=== PATIENT | female | born 1995 | race Two or more races ===

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

== ENCOUNTER → 2017-05-04 | Outpatient (CLI) | payer OTHER | END | disposition home or self-care (01) | LOC: LAB 11:02 | PROVIDERS: ATTEND Nurse Practitioner | DX: Z02.1 Encounter for pre-employment examination (principal) | CPT/HCPCS: 36415; 86706 ==

== ENCOUNTER → 2018-03-14 | Outpatient (CLI) | payer BC | END | disposition home or self-care (01) | LOC: LAB 14:02 | PROVIDERS: ATTEND Internal Medicine | DX: J02.9 Acute pharyngitis, unspecified (principal) | CPT/HCPCS: 87070 ==

== ENCOUNTER → 2018-03-15 | Outpatient (CLI) | payer BC ==
[2018-03-15 09:01] LABS: Eosinophils # (auto) 0.2 uL; Hemoglobin 13.4 g/dL (12.2-16.2); Monocytes # (auto) 0.5 uL; Monocytes % (auto) 8.2 % (0.0-12.0); Neutrophils # (auto) 3.5 uL
[2018-03-15 09:02] LABS: Basophils # (auto) 0 uL; Basophils % (auto) 0.7 % (0.0-2.0); Eosinophils % (auto) 3.2 % (0.0-7.0); Hematocrit 41.9 % (36.0-46.0); Lymphocytes # (auto) 2.1 uL; Lymphocytes % (auto) 33.4 % (10.0-50.0); Mean Corpuscular Hemoglobin 24.5 pg (28.0-32.0); Mean Corpuscular Hgb Conc. 31.9 g/dL (32.0-36.0); Mean Corpuscular Volume 76.8 fL (80.0-100.0); Neutrophils % (auto) 54.5 % (37.0-80.0); Nucleated Red Blood Cells % 0.1 %; Platelet Count (auto) 368 10^3/uL (140-450); Red Blood Cells 5.46 10^6/uL (4.0-5.20); Red Cell Distribution Width 15.8 % (11.8-14.3); White Blood Cell 6.4 10^3/uL (4.4-10.8)
[2018-03-15 09:05] LABS: Urine Bacteria NONE SEEN /hpf (None Seen); Urine Blood Negative /uL (Negative); Urine Mucus FEW (None Seen); Urine Specific Gravity 1.022 (1.001-1.035); Urine WBC 1 /hpf (0 - 5)
[2018-03-15 09:35] LABS: Albumin 4.5 g/dL (3.4-5.0); BUN/Creatinine Ratio 14.6; Bilirubin, Total 0.4 mg/dL (0.2-1.0); Magnesium 2.4 mg/dL (1.6-2.6); Total Protein 9.2 g/dL (6.4-8.2)
[2018-03-15 09:39] LABS: Beta HCG, Quantitative < 1 mlU/mL (1-3); Thyroid Stimulating Hormone 1.81 uIU/mL (0.358-3.74)
== END | disposition home or self-care (01) ==
LOC: LAB 08:23
PROVIDERS: ATTEND Internal Medicine
DX: E55.9 Vitamin D deficiency, unspecified (principal); J02.9 Acute pharyngitis, unspecified
CPT/HCPCS: 36415; 80053; 80061; 81001; 83036; 83735; 84439; 84443; 84702; 85025; 85379; 85652; 86308; 86703

== ENCOUNTER → 2018-04-26 | Outpatient (CLI) | payer BC | END | disposition home or self-care (01) | LOC: XYW 08:18 | PROVIDERS: ATTEND Internal Medicine | DX: I47.1 Supraventricular tachycardia (principal); R55 Syncope and collapse | CPT/HCPCS: 93306 ==

== ENCOUNTER → 2019-11-05 | Outpatient (CLI) | payer OTHER | END | disposition home or self-care (01) | LOC: LAB 07:26 | PROVIDERS: ATTEND Nurse Practitioner Family | DX: Z03.818 Encounter for observation for suspected exposure to other biological agents ruled out (principal) | CPT/HCPCS: C9803; U0003 ==

== ENCOUNTER 2020-12-19 17:40 | Emergency (ER) | payer BC, OTHER ==
[~2020-12-19] VITALS: Ht 160 cm; Wt 77.1 kg
[2020-12-19] MEDS ORDERED: SODIUM CHLORIDE 0.9% 1,000 ML IV ONE (18:30)
[2020-12-19 18:44] LABS: Basophils # (auto) 0 10 ^3/uL (0-0.2); Eosinophils # (auto) 0.2 10 ^3/uL (0-0.8); Monocytes # (auto) 0.8 10 ^3/uL (0-1.3); Red Blood Cells 5.09 10^6/uL (4.0-5.20)
[2020-12-19 18:46] LABS: Basophils % (auto) 0.4 % (0.0-2.0); Eosinophils % (auto) 2.4 % (0.0-7.0); Hematocrit 35.1 % (36.0-46.0); Hemoglobin 11.1 g/dL (12.2-16.2); Mean Corpuscular Hemoglobin 21.7 pg (28.0-32.0); Mean Corpuscular Hgb Conc. 31.5 g/dL (32.0-36.0); Mean Corpuscular Volume 68.9 fL (80.0-100.0); Neutrophils # (auto) 4.2 10 ^3/uL (1.6-8.6); Neutrophils % (auto) 45.2 % (37.0-80.0); Red Cell Distribution Width 17.3 % (11.8-14.3); White Blood Cell 9.3 10^3/uL (4.4-10.8)
[2020-12-19 18:54] LABS: Albumin 3.9 g/dL (3.4-5.0); Anion Gap 6 (5-15); Blood Urea Nitrogen 20 mg/dL (7-18); Calcium 8.6 mg/dL (8.5-10.1); Carbon Dioxide 21 mmol/L (21-32); Chloride 114 mmol/L (98-107); Glucose 85 mg/dL (74-106); Sodium 141 mmol/L (136-145)
[2020-12-19 18:58] LABS: Alanine Aminotransferase 37 U/L (13-56); Alkaline Phosphatase 80 U/L (45-117); Aspartate Aminotransferase 25 U/L (15-37); BUN/Creatinine Ratio 29.9; Bilirubin, Total < 0.1 mg/dL (0.2-1.0); GFR African American 140 mL/min; GFR Non-African American 116 mL/min
[2020-12-19 19:45] VITALS: BP 114/61
[2020-12-19 20:09] LABS: Urine Bacteria NONE SEEN /hpf (None Seen); Urine Blood 1+ /uL (Negative); Urine Hyaline Cast FEW /lpf (0 - 2); Urine Mucus FEW (None Seen); Urine Specific Gravity 1.022 (1.001-1.035); Urine WBC 9 /hpf (0 - 5)
== END 2020-12-19 21:07 | disposition home or self-care (01) ==
LOC: ER 17:40
DX: N39.0 Urinary tract infection, site not specified (principal); R55 Syncope and collapse; D64.9 Anemia, unspecified; R42 Dizziness and giddiness
CPT/HCPCS: 36415; 70450; 80053; 81001; 81025; 82962; 84702; 85025; 93005; 96360; 99285; J7030

== ENCOUNTER → 2021-03-13 | Outpatient (CLI) | payer BC | END | disposition home or self-care (01) | LOC: XYW 08:47 | PROVIDERS: ATTEND Internal Medicine | DX: R00.2 Palpitations (principal) | CPT/HCPCS: 93306 ==

== ENCOUNTER → 2021-04-02 | Outpatient (CLI) | payer BC ==
[2021-04-02 13:00] LABS: Basophils # (auto) 0.1 10 ^3/uL (0-0.2); Hemoglobin 11.5 g/dL (12.2-16.2); Monocytes # (auto) 0.6 10 ^3/uL (0-1.3)
[2021-04-02 13:02] LABS: Basophils % (auto) 0.6 % (0.0-2.0); Eosinophils # (auto) 0.2 10 ^3/uL (0-0.8); Eosinophils % (auto) 2.7 % (0.0-7.0); Hematocrit 34.6 % (36.0-46.0); Mean Corpuscular Hemoglobin 23.2 pg (28.0-32.0); Mean Corpuscular Hgb Conc. 33.2 g/dL (32.0-36.0); Monocytes % (auto) 7.1 % (0.0-12.0); Neutrophils # (auto) 5.1 10 ^3/uL (1.6-8.6); Neutrophils % (auto) 56.6 % (37.0-80.0); Red Blood Cells 4.94 10^6/uL (4.0-5.20); Red Cell Distribution Width 17.7 % (11.8-14.3); White Blood Cell 8.9 10^3/uL (4.4-10.8)
[2021-04-02 13:31] LABS: Albumin 3.8 g/dL (3.4-5.0); Potassium 3.7 mmol/L (3.5-5.1)
[2021-04-02 13:35] LABS: BUN/Creatinine Ratio 16.1; Bilirubin, Total 0.2 mg/dL (0.2-1.0); Calcium 8.9 mg/dL (8.5-10.1); Total Protein 7.9 g/dL (6.4-8.2)
[2021-04-02 13:52] LABS: % Iron Saturation 5.8 % (15-50)
== END | disposition home or self-care (01) ==
LOC: LAB 12:41
PROVIDERS: ATTEND Student in an Organized Health Care Education/Training Program
DX: D50.8 Other iron deficiency anemias (principal); R73.9 Hyperglycemia, unspecified; I47.1 Supraventricular tachycardia
CPT/HCPCS: 36415; 80053; 80061; 82728; 83036; 83540; 83550; 84443; 85025; 87086

== ENCOUNTER → 2021-07-08 | Outpatient (CLI) | payer BC | END | disposition home or self-care (01) | LOC: LAB 14:07 | PROVIDERS: ATTEND Obstetrics & Gynecology | DX: R87.612 Low grade squamous intraepithelial lesion on cytologic smear of cervix (LGSIL) (principal) ==

== ENCOUNTER → 2022-08-18 | Outpatient (CLI) | payer BC ==
[2022-08-18 13:56] LABS: Basophils # (auto) 0 10 ^3/uL (0-0.2); Mean Corpuscular Volume 71.3 fL (80.0-100.0); Monocytes # (auto) 0.6 10 ^3/uL (0-1.3); Nucleated Red Blood Cells % 0.1 %
[2022-08-18 13:58] LABS: Basophils % (auto) 0.5 % (0.0-2.0); Eosinophils # (auto) 0.2 10 ^3/uL (0-0.8); Eosinophils % (auto) 1.9 % (0.0-7.0); Hematocrit 35.1 % (36.0-46.0); Hemoglobin 11.2 g/dL (12.2-16.2); Lymphocytes # (auto) 2.6 10 ^3/uL (0.4-5.4); Lymphocytes % (auto) 31.2 % (10.0-50.0); Mean Corpuscular Hemoglobin 22.7 pg (28.0-32.0); Mean Corpuscular Hgb Conc. 31.9 g/dL (32.0-36.0); Monocytes % (auto) 7.2 % (0.0-12.0); Neutrophils # (auto) 4.9 10 ^3/uL (1.6-8.6); Neutrophils % (auto) 59.2 % (37.0-80.0); Red Blood Cells 4.92 10^6/uL (4.0-5.20); White Blood Cell 8.2 10^3/uL (4.4-10.8)
[2022-08-18 14:05] LABS: Urine Bacteria NONE SEEN /hpf (None Seen); Urine Blood Negative /uL (Negative); Urine Mucus FEW (None Seen); Urine WBC 1 /hpf (0 - 5)
[2022-08-18 14:23] LABS: Albumin 4.3 g/dL (3.4-5.0); Potassium 3.7 mmol/L (3.5-5.1)
[2022-08-18 14:28] LABS: BUN/Creatinine Ratio 17.9; Bilirubin, Total 0.3 mg/dL (0.2-1.0); Total Protein 7.8 g/dL (6.4-8.2)
== END | disposition home or self-care (01) ==
LOC: LAB 13:33
PROVIDERS: ATTEND Student in an Organized Health Care Education/Training Program
DX: R00.2 Palpitations (principal); R03.0 Elevated blood-pressure reading, without diagnosis of hypertension; R73.9 Hyperglycemia, unspecified; E55.9 Vitamin D deficiency, unspecified
CPT/HCPCS: 36415; 80053; 80061; 81001; 83036; 84439; 84443; 85025

== ENCOUNTER → 2022-10-06 | Outpatient (CLI) | payer BC | END | disposition home or self-care (01) | LOC: LAB 14:00 | PROVIDERS: ATTEND Radiology Diagnostic Radiology | DX: D24.1 Benign neoplasm of right breast (principal); N63.12 Unspecified lump in the right breast, upper inner quadrant ==

== ENCOUNTER 2022-11-29 13:02 | Emergency (ER) | payer BC ==
[~2022-11-29] VITALS: Ht 160 cm; Wt 68.0 kg
[2022-11-29 16:02] LABS: Basophils # (auto) 0 10 ^3/uL (0-0.2); Lymphocytes # (auto) 2.4 10 ^3/uL (0.4-5.4); Monocytes # (auto) 0.7 10 ^3/uL (0-1.3); Monocytes % (auto) 7.9 % (0.0-12.0); Neutrophils # (auto) 5.3 10 ^3/uL (1.6-8.6); Nucleated Red Blood Cells % 0.1 %
[2022-11-29 16:05] LABS: Basophils % (auto) 0.4 % (0.0-2.0); Eosinophils # (auto) 0.2 10 ^3/uL (0-0.8); Eosinophils % (auto) 1.8 % (0.0-7.0); Hematocrit 36.1 % (36.0-46.0); Hemoglobin 11.1 g/dL (12.2-16.2); Lymphocytes % (auto) 27.8 % (10.0-50.0); Mean Corpuscular Hemoglobin 22.3 pg (28.0-32.0); Mean Corpuscular Hgb Conc. 30.7 g/dL (32.0-36.0); Mean Corpuscular Volume 72.7 fL (80.0-100.0); Neutrophils % (auto) 62.1 % (37.0-80.0); Red Blood Cells 4.96 10^6/uL (4.0-5.20); Red Cell Distribution Width 17.2 % (11.8-14.3); White Blood Cell 8.5 10^3/uL (4.4-10.8)
[2022-11-29 16:22] LABS: Albumin 3.6 g/dL (3.4-5.0); BUN/Creatinine Ratio 18.8 (10.0-20.0); Calcium 8.7 mg/dL (8.5-10.1); Potassium 3.3 mmol/L (3.5-5.1)
[2022-11-29 16:25] LABS: Bilirubin, Total 0.2 mg/dL (0.2-1.0); Total Protein 7.5 g/dL (6.4-8.2)
[2022-11-29 16:34] LABS: INR 0.99 (0.9-1.15)
[2022-11-29] MEDS ORDERED: POTASSIUM CHL 20 Meq TABLET PO STA (16:53)
[2022-11-29 18:05] VITALS: BP 124/68
== END 2022-11-29 18:06 | disposition home or self-care (01) ==
LOC: ER 13:02
DX: R04.0 Epistaxis (principal)
CPT/HCPCS: 36415; 80053; 85025; 85610

== ENCOUNTER 2022-12-26 14:35 | Emergency (ER) | payer BC ==
[~2022-12-26] VITALS: Ht 160 cm; Wt 80.5 kg
[2022-12-26 15:26] VITALS: BP 143/58
[2022-12-26 16:30] LABS: Eosinophils # (auto) 0.2 10 ^3/uL (0-0.8); Hemoglobin 10.4 g/dL (12.2-16.2); Lymphocytes # (auto) 2.7 10 ^3/uL (0.4-5.4); Monocytes # (auto) 0.8 10 ^3/uL (0-1.3)
[2022-12-26 16:32] LABS: Basophils # (auto) 0 10 ^3/uL (0-0.2); Basophils % (auto) 0.3 % (0.0-2.0); Eosinophils % (auto) 2.1 % (0.0-7.0); Hematocrit 32.5 % (36.0-46.0); Lymphocytes % (auto) 27.2 % (10.0-50.0); Mean Corpuscular Hemoglobin 22.9 pg (28.0-32.0); Mean Corpuscular Hgb Conc. 32.1 g/dL (32.0-36.0); Mean Corpuscular Volume 71.3 fL (80.0-100.0); Neutrophils # (auto) 6.1 10 ^3/uL (1.6-8.6); Neutrophils % (auto) 62.4 % (37.0-80.0); Nucleated Red Blood Cells % 0.1 %; Red Blood Cells 4.56 10^6/uL (4.0-5.20); Red Cell Distribution Width 17.6 % (11.8-14.3); White Blood Cell 9.9 10^3/uL (4.4-10.8)
[2022-12-26 16:40] LABS: INR 1.03 (0.9-1.15)
[2022-12-26] MEDS ORDERED: SODIUM CHLORIDE 0.9% 1,000 ML IV ONE (17:30)
[2022-12-26 17:45] LABS: Potassium 4.3 mmol/L (3.5-5.1)
[2022-12-26 17:53] LABS: Albumin 4.3 g/dL (3.4-5.0); BUN/Creatinine Ratio 22.5 (10.0-20.0); Bilirubin, Total 0.2 mg/dL (0.2-1.0); Calcium 8.7 mg/dL (8.5-10.1); Total Protein 7.2 g/dL (6.4-8.2)
== END 2022-12-26 23:30 | disposition home or self-care (01) ==
LOC: ER 14:35
DX: R04.0 Epistaxis (principal); R42 Dizziness and giddiness
CPT/HCPCS: 36415; 80053; 85025; 85610; 96360; 99283; J7030

== ENCOUNTER → 2023-02-11 | Outpatient (CLI) | payer BC ==
[2023-02-11 08:20] LABS: Basophils # (auto) 0.1 10 ^3/uL (0-0.2); Eosinophils # (auto) 0.3 10 ^3/uL (0-0.8); Eosinophils % (auto) 3.3 % (0.0-7.0); Lymphocytes # (auto) 3.8 10 ^3/uL (0.4-5.4); Monocytes # (auto) 0.9 10 ^3/uL (0-1.3); Monocytes % (auto) 8.3 % (0.0-12.0); Nucleated Red Blood Cells % 0.1 %
[2023-02-11 08:21] LABS: Basophils % (auto) 0.5 % (0.0-2.0); Hematocrit 35.1 % (36.0-46.0); Hemoglobin 11.1 g/dL (12.2-16.2); Lymphocytes % (auto) 36.4 % (10.0-50.0); Mean Corpuscular Hemoglobin 22.2 pg (28.0-32.0); Mean Corpuscular Hgb Conc. 31.5 g/dL (32.0-36.0); Mean Corpuscular Volume 70.5 fL (80.0-100.0); Neutrophils # (auto) 5.3 10 ^3/uL (1.6-8.6); Neutrophils % (auto) 51.5 % (37.0-80.0); Red Blood Cells 4.98 10^6/uL (4.0-5.20); Red Cell Distribution Width 16.3 % (11.8-14.3); White Blood Cell 10.3 10^3/uL (4.4-10.8)
[2023-02-11 09:11] LABS: Potassium 3.7 mmol/L (3.5-5.1)
[2023-02-11 09:15] LABS: BUN/Creatinine Ratio 18.3 (10.0-20.0); Calcium 8.5 mg/dL (8.5-10.1)
== END | disposition home or self-care (01) ==
LOC: LAB 08:10
PROVIDERS: ATTEND Student in an Organized Health Care Education/Training Program
DX: R73.9 Hyperglycemia, unspecified (principal)
CPT/HCPCS: 36415; 80048; 83036; 85025

== ENCOUNTER 2023-05-01 21:23 | Emergency (ER) | payer BC ==
[~2023-05-01] VITALS: Ht 160 cm; Wt 79.5 kg
[2023-05-01] MEDS ORDERED: ACCU-CHEK COMFORT CURVE STRIP VI ONE (21:30)
[2023-05-01 22:01] LABS: Basophils # (auto) 0.1 10 ^3/uL (0-0.2); Eosinophils # (auto) 0.2 10 ^3/uL (0-0.8)
[2023-05-01 22:03] LABS: Basophils % (auto) 1.1 % (0.0-2.0); Eosinophils % (auto) 2.1 % (0.0-7.0); Hematocrit 34.3 % (36.0-46.0); Lymphocytes # (auto) 4.5 10 ^3/uL (0.4-5.4); Lymphocytes % (auto) 45.6 % (10.0-50.0); Mean Corpuscular Hemoglobin 22.1 pg (28.0-32.0); Mean Corpuscular Hgb Conc. 32.1 g/dL (32.0-36.0); Monocytes # (auto) 0.7 10 ^3/uL (0-1.3); Monocytes % (auto) 6.8 % (0.0-12.0); Neutrophils # (auto) 4.4 10 ^3/uL (1.6-8.6); Neutrophils % (auto) 44.4 % (37.0-80.0); Red Blood Cells 4.97 10^6/uL (4.0-5.20); Red Cell Distribution Width 19.4 % (11.8-14.3); White Blood Cell 9.9 10^3/uL (4.4-10.8)
[2023-05-01 22:17] LABS: Alanine Aminotransferase 22 U/L (7-40); Albumin 4.9 g/dL (3.2-4.8); Alkaline Phosphatase 78 U/L (46-116); Anion Gap 10 (5-15); Aspartate Aminotransferase 12 U/L (13-40); BUN/Creatinine Ratio 12.7 (10.0-20.0); Bilirubin, Total 0.2 mg/dL (0.2-1.0); Blood Urea Nitrogen 10 mg/dL (9-23); Calcium 9.7 mg/dL (8.7-10.4); Carbon Dioxide 21 mmol/L (20-30); Chloride 105 mmol/L (98-107); Glucose 93 mg/dL (74-106); Potassium 3.1 mmol/L (3.5-5.1); Sodium 136 mmol/L (136-145); Total Protein 8.1 g/dL (5.7-8.2)
[2023-05-01 22:49] LABS: Rapid Influenza A Negative (Negative); Rapid Influenza B Negative (Negative)
[2023-05-01 22:50] LABS: COVID19 ANTIGEN SOFIA FIA NEGATIVE (NEGATIVE)
[2023-05-02 00:16] LABS: Urine Bacteria FEW /hpf (None Seen); Urine Blood Negative /uL (Negative); Urine Clarity Clear (Clear); Urine Mucus FEW (None Seen); Urine Protein, UAD Negative (Negative); Urine Specific Gravity 1.007 (1.001-1.035); Urine Urobilinogen Normal (Negative); Urine WBC 5 /hpf (0 - 5)
[2023-05-02 00:17] LABS: Urine Color Straw (Yellow)
[2023-05-02] MEDS ORDERED: MECL1TAB42 PO (00:56)
[2023-05-02] MEDS ORDERED: ZOFR4T PO (00:56)
[2023-05-02] MEDS ORDERED: MECLIZINE HCL 25 MG TAB PO ONE (01:00)
[2023-05-02 01:14] VITALS: BP 120/81; PULSE 86; RESP 17; TEMP 97.9; O2SAT 96
== END 2023-05-02 01:47 | disposition home or self-care (01) ==
LOC: ER 21:23 → EEVIPCON 21:23 → ER 05-02 01:47
DX: B34.9 Viral infection, unspecified (principal); Z20.822 Contact with and (suspected) exposure to COVID-19
CPT/HCPCS: 36415; 70450; 71045; 80053; 81001; 83880; 84484; 85025; 87426; 87804; 93005; 99285; J8597

== ENCOUNTER → 2023-12-09 | Outpatient (CLI) | payer BC ==
[~2023-12-09] MED LIST: MECL1TAB42 PO; ZOFR4T PO
[2023-12-09 10:24] LABS: Follicle Stimulating Hormone 6.97 IU/L (SEE BELOW); Leuteinizing Hormone 6.7 IU/L
== END | disposition home or self-care (01) ==
LOC: LAB 08:41
PROVIDERS: ATTEND Obstetrics & Gynecology
DX: N92.6 Irregular menstruation, unspecified (principal)
CPT/HCPCS: 36415; 82670; 83001; 83002; 84403; 84443

== ENCOUNTER 2024-01-05 15:28 | Emergency (ER) | payer BC ==
[~2024-01-05] VITALS: Ht 160 cm; Wt 82.7 kg
[2024-01-05 16:27] LABS: Basophils # (auto) 0.1 10 ^3/uL (0-0.2); Basophils % (auto) 0.5 % (0.0-2.0); Eosinophils # (auto) 0.3 10 ^3/uL (0-0.8); Eosinophils % (auto) 2.7 % (0.0-7.0); Hematocrit 34.2 % (36.0-46.0); Hemoglobin 10.8 g/dL (12.2-16.2); Lymphocytes # (auto) 3.9 10 ^3/uL (0.4-5.4); Lymphocytes % (auto) 34.9 % (10.0-50.0); Mean Corpuscular Hemoglobin 23.2 pg (28.0-32.0); Mean Corpuscular Hgb Conc. 31.7 g/dL (32.0-36.0); Mean Corpuscular Volume 73.3 fL (80.0-100.0); Monocytes # (auto) 0.8 10 ^3/uL (0-1.3); Monocytes % (auto) 7.4 % (0.0-12.0); Neutrophils % (auto) 54.5 % (37.0-80.0); Nucleated Red Blood Cells % 0.1 %; Red Blood Cells 4.66 10^6/uL (4.0-5.20); Red Cell Distribution Width 15.6 % (11.8-14.3); White Blood Cell 11.1 10^3/uL (4.4-10.8)
[2024-01-05 16:39] LABS: Chloride 108 mmol/L (98-107); Potassium 3.4 mmol/L (3.5-5.1); Sodium 138 mmol/L (136-145)
[2024-01-05 16:40] LABS: Anion Gap 8 (5-15); Calcium 9.9 mg/dL (8.5-10.1); Carbon Dioxide 22 mmol/L (20-30)
[2024-01-05 16:45] LABS: BUN/Creatinine Ratio 14.6 (10.0-20.0); Blood Urea Nitrogen 13 mg/dL (9-23); Glucose 89 mg/dL (74-106)
[2024-01-05] MEDS: SODIUM CHLORIDE 0.9% 1,000 ML IV ONE (21:43)
[2024-01-05 21:45] VITALS: BP 129/77; PULSE 73; RESP 14; TEMP 98.3; O2SAT 100
== END 2024-01-05 21:52 | disposition home or self-care (01) ==
LOC: ER 15:28
DX: R55 Syncope and collapse (principal); E11.9 Type 2 diabetes mellitus without complications; Z79.899 Other long term (current) drug therapy
CPT/HCPCS: 36415; 70450; 80048; 85025; 93005

== ENCOUNTER 2024-04-17 18:43 | Emergency (ER) | payer BC ==
[~2024-04-17] VITALS: Ht 160 cm; Wt 80.1 kg
[2024-04-17] MEDS: ONDANSETRON ODT 4 MG TAB PO ONE (19:02)
[2024-04-17 20:02] LABS: Urine Bacteria None Seen /hpf (None Seen)
[2024-04-17] MEDS: SODIUM CHLORIDE 0.9% 1,000 ML IV ONE (20:15)
[2024-04-17 20:20] LABS: Urine Blood Negative /uL (Negative); Urine Clarity Clear (Clear); Urine Color Yellow (Yellow); Urine Mucus FEW (None Seen); Urine Protein, UAD Negative (Negative); Urine Specific Gravity 1.029 (1.001-1.035); Urine Urobilinogen Normal (Negative); Urine WBC 1 /hpf (0 - 5); Urine pH 5.5 (5.0-9.0)
[2024-04-17 20:21] LABS: Basophils # (auto) 0 10 ^3/uL (0-0.2); Basophils % (auto) 0.3 % (0.0-2.0); Eosinophils # (auto) 0.1 10 ^3/uL (0-0.8); Hematocrit 34.1 % (36.0-46.0); Monocytes # (auto) 0.6 10 ^3/uL (0-1.3); Neutrophils # (auto) 7.7 10 ^3/uL (1.6-8.6)
[2024-04-17 20:23] LABS: Hemoglobin 10.8 g/dL (12.2-16.2); Lymphocytes # (auto) 2.8 10 ^3/uL (0.4-5.4); Lymphocytes % (auto) 25.2 % (10.0-50.0); Mean Corpuscular Hemoglobin 21.9 pg (28.0-32.0); Mean Corpuscular Hgb Conc. 31.7 g/dL (32.0-36.0); Monocytes % (auto) 5.1 % (0.0-12.0); Neutrophils % (auto) 68.4 % (37.0-80.0); Platelet Count (auto) 402 10^3/uL (140-450); Red Blood Cells 4.94 10^6/uL (4.0-5.20); Red Cell Distribution Width 16.5 % (11.8-14.3); White Blood Cell 11.3 10^3/uL (4.4-10.8)
[2024-04-17 20:32] LABS: Alanine Aminotransferase 29 U/L (7-40); Albumin 4.9 g/dL (3.2-4.8); Alkaline Phosphatase 75 U/L (46-116); Anion Gap 10 (5-15); Aspartate Aminotransferase 18 U/L (13-40); BUN/Creatinine Ratio 11.4 (10.0-20.0); Bilirubin, Total 0.4 mg/dL (0.2-1.0); Blood Urea Nitrogen 8 mg/dL (9-23); Calcium 9.7 mg/dL (8.7-10.4); Carbon Dioxide 19 mmol/L (20-30); Chloride 109 mmol/L (98-107); Glucose 71 mg/dL (74-106); Potassium 3.3 mmol/L (3.5-5.1); Sodium 138 mmol/L (136-145)
[2024-04-17] MEDS: POTASSIUM CHL 20 Meq TABLET PO ONE (21:23)
[2024-04-17] MEDS ORDERED: ONDA-155 PO (21:54)
[2024-04-17 22:05] VITALS: BP 119/73; PULSE 72; RESP 16; TEMP 98.8; O2SAT 98
== END 2024-04-17 22:17 | disposition home or self-care (01) ==
LOC: EEVIPCON 18:43 → ER 18:43
DX: N83.202 Unspecified ovarian cyst, left side (principal); E87.6 Hypokalemia; Z79.899 Other long term (current) drug therapy
CPT/HCPCS: 36415; 76856; 80053; 81001; 81025; 85025; 96360; 99284; J7030; Q0162

== ENCOUNTER → 2024-05-09 | Outpatient (CLI) | payer BC ==
[~2024-05-09] MED LIST changes: +ONDA-155 PO
[2024-05-09 16:04] LABS: Basophils # (auto) 0.1 10 ^3/uL (0-0.2); Basophils % (auto) 1.3 % (0.0-2.0); Eosinophils # (auto) 0.3 10 ^3/uL (0-0.8); Eosinophils % (auto) 4.2 % (0.0-7.0); Hematocrit 33.4 % (36.0-46.0); Hemoglobin 10.5 g/dL (12.2-16.2); Lymphocytes # (auto) 2.4 10 ^3/uL (0.4-5.4); Lymphocytes % (auto) 29.2 % (10.0-50.0); Mean Corpuscular Hemoglobin 21.7 pg (28.0-32.0); Mean Corpuscular Hgb Conc. 31.5 g/dL (32.0-36.0); Mean Corpuscular Volume 68.9 fL (80.0-100.0); Monocytes # (auto) 0.6 10 ^3/uL (0-1.3); Monocytes % (auto) 7.5 % (0.0-12.0); Neutrophils # (auto) 4.7 10 ^3/uL (1.6-8.6); Neutrophils % (auto) 57.8 % (37.0-80.0); Nucleated Red Blood Cells % 0.1 %; Platelet Count (auto) 460 10^3/uL (140-450); Red Blood Cells 4.85 10^6/uL (4.0-5.20); Red Cell Distribution Width 17.1 % (11.8-14.3); White Blood Cell 8.2 10^3/uL (4.4-10.8)
[2024-05-09 16:11] LABS: Alanine Aminotransferase 17 U/L (7-40); Albumin 4.6 g/dL (3.2-4.8); Alkaline Phosphatase 73 U/L (46-116); Anion Gap 9 (5-15); Aspartate Aminotransferase 14 U/L (13-40); BUN/Creatinine Ratio 22.2 (10.0-20.0); Blood Urea Nitrogen 16 mg/dL (9-23); Calcium 9.5 mg/dL (8.7-10.4); Carbon Dioxide 21 mmol/L (20-31); Chloride 111 mmol/L (98-107); Glucose 78 mg/dL (74-106); Sodium 141 mmol/L (136-145)
[2024-05-09 16:12] LABS: Bilirubin, Total 0.2 mg/dL (0.2-1.0); Total Protein 7.5 g/dL (5.7-8.2)
[2024-05-09 16:15] LABS: Follicle Stimulating Hormone 6.51 IU/L (SEE BELOW); Free T4 (Free Thyroxine) 1.24 ng/dL (0.89-1.76); Leuteinizing Hormone 4.5 IU/L
[2024-05-09 16:19] LABS: Thyroid Stimulating Hormone 1.98 uIU/mL (0.55-4.78)
[2024-05-09 16:20] LABS: Beta HCG, Quantitative < 0.0 mIU/mL (1.5-4.2)
[2024-05-10 09:07] LABS: Estradiol 83.6 pg/mL (.); Insulin 17.6 uIU/mL (2.6-24.9)
[2024-05-14 11:07] LABS: Free Testosterone(Direct) 0.9 pg/mL (0.0-4.2)
== END | disposition home or self-care (01) ==
LOC: LAB 11:28
PROVIDERS: ATTEND Obstetrics & Gynecology
DX: E28.2 Polycystic ovarian syndrome (principal)
CPT/HCPCS: 36415; 80053; 82626; 82670; 83001; 83002; 83036; 83525; 84402; 84403; 84439; 84443; 84702; 85025

== ENCOUNTER → 2024-06-21 | Outpatient (CLI) | payer BC ==
[2024-06-21 11:20] LABS: Basophils # (auto) 0.1 10 ^3/uL (0-0.2); Basophils % (auto) 0.6 % (0.0-2.0); Eosinophils # (auto) 0.2 10 ^3/uL (0-0.8); Hematocrit 32.4 % (36.0-46.0); Hemoglobin 10.2 g/dL (12.2-16.2); Lymphocytes # (auto) 2.5 10 ^3/uL (0.4-5.4); Lymphocytes % (auto) 24.2 % (10.0-50.0); Mean Corpuscular Hemoglobin 21.7 pg (28.0-32.0); Mean Corpuscular Hgb Conc. 31.5 g/dL (32.0-36.0); Monocytes # (auto) 0.8 10 ^3/uL (0-1.3); Neutrophils # (auto) 6.8 10 ^3/uL (1.6-8.6); Neutrophils % (auto) 65.2 % (37.0-80.0); Platelet Count (auto) 398 10^3/uL (140-450); Red Blood Cells 4.69 10^6/uL (4.0-5.20); Red Cell Distribution Width 18.9 % (11.8-14.3); White Blood Cell 10.4 10^3/uL (4.4-10.8)
[2024-06-21 11:36] LABS: Amphetamine Screen, Urine Neg (NEGATIVE); Barbiturate Scree,Urine Neg (NEGATIVE); Benzodiazephine Screen, Urine Neg (NEGATIVE); Cocaine Screen, Urine Neg (NEGATIVE); Opiate Scree,Urine Neg (NEGATIVE)
[2024-06-21 11:37] LABS: Cannabinoid Screen, Urine Neg (NEGATIVE); Phencyclidine Screen, Urine Neg (NEGATIVE)
[2024-06-21 11:43] LABS: Thyroid Stimulating Hormone 1.43 uIU/mL (0.55-4.78)
[2024-06-21 11:51] LABS: Beta HCG, Quantitative 178876.8 mIU/mL (1.5-4.2)
[2024-06-22 07:06] LABS: RPR Non Reactive (Non Reactive)
[2024-06-23 03:06] LABS: Varicella Zoster IgG Antibody Non Reactive (Non Reactive)
[2024-06-23 05:07] LABS: Chlamydia Trachomatis, NAA Negative (Negative); Neisseria gonorrhoeae, NAA Negative (Negative)
== END | disposition home or self-care (01) ==
LOC: LAB 10:05
DX: Z11.3 Encounter for screening for infections with a predominantly sexual mode of transmission (principal); N39.0 Urinary tract infection, site not specified
CPT/HCPCS: 36415; 80307; 83036; 84439; 84443; 84702; 85025; 86592; 86703; 86762; 86787; 86850; 86900; 86901; 87086; 87340; 87902

== ENCOUNTER 2024-08-06 18:26 | Emergency (ER) | payer BC ==
[~2024-08-06] VITALS: Ht 160 cm; Wt 84.6 kg
--- NOTE | 2024-08-06 19:08 | ED.PDOC ---
[employer] HPI Comments 29-year-old female with no PMHx presents with a chief complaint of palpitations, nausea, vomiting, lightheadedness, and current . Patient states that she is currently 14 weeks . Patient mentions that symptoms began x 6 days ago when she began to feel palpitations along with lightheadedness. Patient then mentions that nausea and vomiting began x 3 days ago with the similar symptoms. Patient denies any active chest pain. Patient reports that she does take pre- care. No other symptoms or modifying factors present at this time. Chief Complaint: Palpitations Time Seen by MD: 18:56 Reviewed Notes: Medications, Allergies Allergies: Coded Allergies: No Known Drug Allergy (Verified Allergy, Unknown, 12/19/20) Home Meds Active Scripts Ondansetron HCl (Ondansetron) 4 Mg Tab, 4 MG PO TID for 4 Days, #12 TAB Prov:CHRISTIANO SANCHES RESIDENT 04/17/24 Ondansetron Odt 4MG Tab (ZOFRAN PO) 4 Mg Tb, 4 MG PO Q6HP PRN, #15 TAB ODT TAB-DISSOLVE IN MOUTH, THEN SWALLOW Prov:ARMEN NEVAREZ PAC 05/02/23 Meclizine HCl (Meclizine 25) 25 Mg Tab, 25 MG PO Q8HP PRN, #15 TAB Prov:ARMEN NEVAREZ [facility] 05/02/23 Information Source: Patient Mode of Arrival: Ambulatory Timing: Days Prehospital treatment: None Severity: Moderate Vaginal Discharge: None Vaginal Lesions: None Vaginal Mass: None Sexual Activity: Last Consensual [place]: Unknown Control: None History of: Current Blood Type: Unknown Symptoms of Possible : Nausea, Vomiting Past Medical History PAST MEDICAL HISTORY: Denies Surgical History: Denies all surgeries CUSTOMER CONSULTANT History: No Pertinent CUSTOMER CONSULTANT History Family History Family History: Family hx of DM, Family hx of Cancer, Family hx of heart manuel, Family hx of HTN Social History Smoker: Non-Smoker Alcohol: Rarely Drugs: Denies Drug Use Lives In: Home Constitutional: denies: chills, diaphoresis, fatigue, fever, malaise, sweats, weakness, others EENTM: denies: blurred vision, double vision, ear bleeding, ear discharge, ear drainage, ear pain, ear ringing, eye pain, eye redness, hearing loss, mouth pain, mouth swelling, nasal discharge, nose bleeding, nose congestion, nose pain, photophobia, tearing, throat pain, throat swelling, voice changes, others Respiratory: denies: cough, hemoptysis, orthopnea, SOB at rest, shortness of breath, SOB with excertion, stridor, wheezing, others Cardiovascular: reports: lightheadedness, palpitations; denies: chest pain, dizzy spells, diaphoresis, Dyspnea on exertion, edema, irregular heart beat, left arm pain, PND, syncope, others Gastrointestinal: reports: nausea, vomiting; denies: abdomen distended, abdominal pain, blood streaked bowels, constipated, diarrhea, dysphagia, difficulty swallowing, hematemesis, melena, poor appetite, poor fluid intake, rectal bleeding, rectal pain, others Genitourinary: reports: ; denies: abnormal vagina bleeding, burning, dyspareunia, dysuria, flank pain, frequency, hematuria, incontinence, pain, vagina discharge, urgency, others Neurological: denies: dizziness, fainting, headache, left sided numbness, left sided weakness, numbness, paresthesia, pre-existing deficit, right sided numbness, right sided weakness, seizure, speech problems, tingling, tremors, weakness, others Musculoskeletal: denies: back pain, gout, joint pain, joint swelling, muscle pain, muscle stiffness, neck pain, others Integumetry: denies: bruises, change in color, change in hair/nails, dryness, laceration, lesions, lumps, rash, wounds, others Allergic/Immunocompromised: denies: Difficulty Healing, Frequent Infections, Hives, Itching, others Hematologic/Lymphatic: denies: anemia, blood clots, easy bleeding, easy bruising, swollen glands, others Endocrine: denies: excessive hunger, excessive sweating, excessive thirst, excessive urination, flushing, intolerance to cold, intolerance to heat, unexplained weight gain, unexplained weight loss, others Psychiatric: denies: anxiety, bipolar disorder, depression, hopeless, panic disorder, schizophrenia, sleepless, suicidal, others All Other Systems: Reviewed and Negative Physical Exam General Appearance: No Apparent Distress, Normal HEENT: Normal ENT Inspection, Pharynx Normal, TMs Normal Neck: Full Range of Motion, Non-Tender, Normal, Normal Inspection Respiratory: Chest Non-Tender, Lungs Clear, No Accessory Muscle Use, No Respiratory Distress, Normal Breath Sounds Cardiovascular: No Edema, No JVD, No Murmur, No Gallop, Normal Peripheral Pulses, Regular Rate/Rhythm Breast Exam: Deferred Gastrointestinal: No Organomegaly, Non Tender, No Pulsatile Mass, Normal Bowel Sounds, Soft Genitalia: Deferred Pelvic: Deferred Rectal: Deferred Extremities: No calf tenderness, Normal capillary refill, Normal inspection, Normal range of motion, Non-tender, No pedal edema Musculoskeletal : Apperance: Normal Neurologic: Alert, 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 Was a procedure done?: No X-Ray, Labs, Meds, VS Vital Signs Date Time Temp Pulse Resp B/P (MAP) Pulse Ox O2 Delivery O2 Flow Rate FiO2 08/06/24 20:13 99 16 100 Room Air* 0 21 08/06/24 20:13 98.0 99 16 125/77 (93) 100 98.0 08/06/24 18:31 97 08/06/24 18:29 98.0 103 18 11/ (61) 100 Lab Test 08/06/24 18:42 08/06/24 18:35 Range/Units White Blood Count 15.1 H 4.4-10.8 10^3/uL Red Blood Count 4.24 4.0-5.20 10^6/uL Hemoglobin 9.4 L 12.2-16.2 g/dL Hematocrit 29.9 L 36.0-46.0 % Mean Corpuscular Volume 70.7 L 80.0-100.0 fL Mean Corpuscular Hemoglobin 22.1 L 28.0-32.0 pg Mean Corpuscular Hemoglobin Concent 31.3 L 32.0-36.0 g/dL Red Cell Distribution Width 21.0 H 11.8-14.3 % Platelet Count 385 140-450 10^3/uL Mean Platelet Volume 7.7 6.9-10.8 fL Neutrophils (%) (Auto) 66.5 37.0-80.0 % Lymphocytes (%) (Auto) 24.6 10.0-50.0 % Monocytes (%) (Auto) 6.5 0.0-12.0 % Eosinophils (%) (Auto) 2.1 0.0-7.0 % Basophils (%) (Auto) 0.3 0.0-2.0 % Neutrophils # (Auto) 10.0 H 1.6-8.6 10 ^3/uL Lymphocytes # (Auto) 3.7 0.4-5.4 10 ^3/uL Monocytes # (Auto) 1.0 0-1.3 10 ^3/uL Eosinophils # (Auto) 0.3 0-0.8 10 ^3/uL Basophils # (Auto) 0 0-0.2 10 ^3/uL Nucleated Red Blood Cells 0.1 % Prothrombin Time 10.3 9.3-11.8 sec Prothrombin Time INR 0.97 0.9-1.15 D-Dimer, Quantitative 1.01 H 0.0-0.49 mg/L FEU Sodium Level 138 136-145 mmol/L Potassium Level 3.5 3.5-5.1 mmol/L Chloride Level 108 H 98-107 mmol/L Carbon Dioxide Level 22 20-31 mmol/L Anion Gap 8 5-15 Blood Urea Nitrogen 8 L 9-23 mg/dL Creatinine 0.51 L 0.550-1.02 mg/dL Glomerular Filtration Rate Calc 131 >90 mL/min BUN/Creatinine Ratio 15.7 10.0-20.0 Serum Glucose 70 L 74-106 mg/dL Calcium Level 9.7 8.7-10.4 mg/dL Magnesium Level 2.0 1.6-2.6 mg/dL Total Bilirubin 0.2 0.2-1.0 mg/dL Aspartate Amino Transferase (AST) 29 13-40 U/L Alanine Aminotransferase (ALT) 50 H 7-40 U/L Alkaline Phosphatase 71 46-116 U/L Total Protein 7.0 5.7-8.2 g/dL Albumin 4.3 3.2-4.8 g/dL Thyroid Stimulating Hormone (TSH) 0.81 0.55-4.78 uIU/mL Free Thyroxine (T4) Calculated 0.93 0.89-1.76 ng/dL POC Glucose 71 70-106 mg/dl Current Medications Medications (Trade) Dose Ordered Sig/Oswaldo Route Start Time Stop Time Status Last Admin Sodium Chloride 1,000 ml @ 1,000 mls/hr Q1H ONCE IV 08/06/24 19:00 08/06/24 19:59 DC 08/06/24 20:20 Metoclopramide HCl (Reglan Injection) 5 mg ONCE ONCE IV 08/06/24 19:00 08/06/24 19:02 DC 08/06/24 20:20 Time of 1ST Reevaluation: 19:26 Reevaluation 1ST: Unchanged Time of 2ND Reevaluation: 20:29 Reevaluation 2ND: Unchanged Patient Education/Counseling: Diagnosis, Treatment, Prognosis Family Education/Counseling: Diagnosis, Treatment, Prognosis Departure 1 Departure Time of Disposition: 20:29 (D-dimer elevated, possibly just deydrated, will admit for IV hydration and further workup) Impression: Primary Impression: 14 weeks gestation of Additional Impression: Palpitations Disposition: ADMITTED INPATIENT Condition: Guarded Discharged With: Self Critical Care Note Critical Care Time?: No Stability Stability form required: No Heart Score Heart Score: Heart Score Response (Comments) Value History Slightly Suspicious 0 EKG Normal 0 Age <45 0 Risk Factors 1 or 2 risk factors 1 Troponin Normal limit 0 Total 1 I personally scribed for BECKY RICKETTS MD ([email or web address]) on 08/06/24 at 19:08. Electronically submitted by Donell Francis ([email or web address]). BECKY RICKETTS MD Aug 06, 2024 19:08
[2024-08-06 19:39] LABS: Basophils # (auto) 0 10 ^3/uL (0-0.2); Basophils % (auto) 0.3 % (0.0-2.0); Eosinophils # (auto) 0.3 10 ^3/uL (0-0.8); Hemoglobin 9.4 g/dL (12.2-16.2); Nucleated Red Blood Cells % 0.1 %
[2024-08-06 19:41] LABS: Eosinophils % (auto) 2.1 % (0.0-7.0); Hematocrit 29.9 % (36.0-46.0); Lymphocytes # (auto) 3.7 10 ^3/uL (0.4-5.4); Lymphocytes % (auto) 24.6 % (10.0-50.0); Mean Corpuscular Hemoglobin 22.1 pg (28.0-32.0); Mean Corpuscular Hgb Conc. 31.3 g/dL (32.0-36.0); Mean Corpuscular Volume 70.7 fL (80.0-100.0); Monocytes % (auto) 6.5 % (0.0-12.0); Neutrophils % (auto) 66.5 % (37.0-80.0); Platelet Count (auto) 385 10^3/uL (140-450); Red Blood Cells 4.24 10^6/uL (4.0-5.20); White Blood Cell 15.1 10^3/uL (4.4-10.8)
[2024-08-06 19:48] LABS: Alkaline Phosphatase 71 U/L (46-116); Calcium 9.7 mg/dL (8.7-10.4)
[2024-08-06 19:49] LABS: Albumin 4.3 g/dL (3.2-4.8); Anion Gap 8 (5-15); Aspartate Aminotransferase 29 U/L (13-40); BUN/Creatinine Ratio 15.7 (10.0-20.0); Carbon Dioxide 22 mmol/L (20-31); Sodium 138 mmol/L (136-145)
[2024-08-06 19:50] LABS: Alanine Aminotransferase 50 U/L (7-40); Bilirubin, Total 0.2 mg/dL (0.2-1.0); Blood Urea Nitrogen 8 mg/dL (9-23); Chloride 108 mmol/L (98-107); Glucose 70 mg/dL (74-106); Potassium 3.5 mmol/L (3.5-5.1)
[2024-08-06 20:13] VITALS: BP 125/77; PULSE 99; RESP 16; TEMP 98; O2SAT 100
[2024-08-06 20:13] LABS: INR 0.97 (0.9-1.15); Prothrombin Time 10.3 sec (9.3-11.8)
[2024-08-06] MEDS: METOCLOPRAMIDE HCL 5MG/ml INJ 2ml VIAL IV ONE (20:20)
[2024-08-06] MEDS: SODIUM CHLORIDE 0.9% 1,000 ML IV ONE (20:20)
== END 2024-08-06 20:57 | disposition left against medical advice (07) ==
LOC: ER 18:26
DX: O26.891 Other specified pregnancy related conditions, first trimester (principal); R00.2 Palpitations; R06.02 Shortness of breath; O21.9 Vomiting of pregnancy, unspecified; Z3A.14 14 weeks gestation of pregnancy; Z79.899 Other long term (current) drug therapy
CPT/HCPCS: 36415; 80053; 82962; 83735; 84439; 84443; 85025; 85379; 85610; 96361; 96374; 99283; J2765; J7030

== ENCOUNTER 2024-08-21 19:15 | Emergency (ER) | payer BC ==
[~2024-08-21] VITALS: Ht 160 cm; Wt 85.8 kg
[2024-08-21 19:30] VITALS: BP 129/80; PULSE 116; RESP 18; TEMP 98; O2SAT 98
--- NOTE | 2024-08-21 20:43 | ED.PDOC ---
History of Present Illness HPI Comments 29-YEAR-OLD FEMALE PRESENTS TO ER WITH COMPLAINTS OF FLU-LIKE SYMPTOMS X2 DAYS. PATIENT REPORTS THAT SHE IS CURRENTLY 16 WEEKS , A0 AND REPORTS THAT SHE HAS BEEN EXPERIENCING DRY COUGH, SORE THROAT, CONGESTION AND INTERMITTENT N/V X 2 DAYS. NOTES SHE CURRENTLY IS ALSO EXPERIENCING 6/10 LOWER PELVIC PAIN. STATES SHE DID TEST POSITIVE FOR INFLUENZA A AT THE URGENT CARE AT THIS HOSPITAL TODAY AND TOOK TYLENOL PRIOR TO ARRIVAL TO ER. PATIENT PRESENTS TO ER AFEBRILE, IN NO DISTRESS AND STATES SHE HAS BEEN FOLLOWING UP WITH HER OBGYN DIRECTED. DENIES SHORTNESS OF BREATH, CHEST PAIN, HEMOPTYSIS, ABDOMINAL PAIN, PALPITATIONS, CHANGES IN URINATION/BM OR ANY FURTHER SYMPTOMS/COMPLAINTS Chief Complaint: Flu like Time Seen by MD: 19:51 Primary Care Provider: UNKNOWN Reviewed Notes: Nurses Notes, Medications, Allergies Information Source: Patient Mode of Arrival: Ambulatory Past Medical History PAST MEDICAL HISTORY: Anemia Past Medical History (Other): 2023 Surgical History: Denies all surgeries PENCIL SORTER History: No Pertinent PENCIL SORTER History Family History Family History: Family hx of DM, Family hx of Cancer, Family hx of heart manuel, Family hx of HTN Social History Smoker: Non-Smoker Alcohol: Rarely Drugs: Denies Drug Use Lives In: Home Constitutional: See HPI EENTM: See HPI Respiratory: See HPI Cardiovascular: No Symptoms Reported Gastrointestinal: See HPI Genitourinary: See HPI Neurological: No Symptoms Reported Musculoskeletal: No Symptoms Reported Integumentary: No Symptoms Reported Allergic/Immunocompromised: others (DENIES) Hematologic/Lymphatic: No Symptoms Reported Endocrine: No Symptoms Reported Psychiatric: No symptoms Reported Physical Exam General Appearance: No Apparent Distress, Obese HEENT: Normal ENT Inspection, PERRL/EOMI, Pharynx Normal, TMs Normal Neck: Full Range of Motion, Non-Tender, Normal Respiratory: Chest Non-Tender, Lungs Clear, No Accessory Muscle Use, No Respiratory Distress, Normal Breath Sounds Cardiovascular: No Murmur, No Gallop, Regular Rate/Rhythm Breast Exam: Deferred Gastrointestinal: No Organomegaly, No Pulsatile Mass, Normal Bowel Sounds, Soft, Suprapubic (SLIGHT TTP TO SUPRAPUBIC REGION NOTED) Genitalia: Deferred Pelvic: Deferred Rectal: Deferred Extremities: Normal capillary refill, Normal range of motion Neurologic: Alert, 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 Was a procedure done?: No Sedation Sedation?: No Fever Differential Dx Differential Diagnosis: Dehydration, Sepsis, Pharyngitis X-Ray, Labs, Meds, VS Vital Signs Date Time Temp Pulse Resp B/P (MAP) Pulse Ox O2 Delivery O2 Flow Rate FiO2 08/21/24 19:30 18 98 Room Air* 0 21 08/21/24 19:30 98.0 116 18 129/80 (96) 98 Lab Test 08/21/24 21:23 08/21/24 21:10 Range/Units White Blood Count 9.8 4.4-10.8 10^3/uL Red Blood Count 4.26 4.0-5.20 10^6/uL Hemoglobin 9.7 L 12.2-16.2 g/dL Hematocrit 29.6 L 36.0-46.0 % Mean Corpuscular Volume 69.7 L 80.0-100.0 fL Mean Corpuscular Hemoglobin 22.8 L 28.0-32.0 pg Mean Corpuscular Hemoglobin Concent 32.8 32.0-36.0 g/dL Red Cell Distribution Width 19.9 H 11.8-14.3 % Platelet Count 318 140-450 10^3/uL Mean Platelet Volume 7.7 6.9-10.8 fL Neutrophils (%) (Auto) 82.4 H 37.0-80.0 % Lymphocytes (%) (Auto) 9.3 L 10.0-50.0 % Monocytes (%) (Auto) 7.9 0.0-12.0 % Eosinophils (%) (Auto) 0.2 0.0-7.0 % Basophils (%) (Auto) 0.2 0.0-2.0 % Neutrophils # (Auto) 8.1 1.6-8.6 10 ^3/uL Lymphocytes # (Auto) 0.9 0.4-5.4 10 ^3/uL Monocytes # (Auto) 0.8 0-1.3 10 ^3/uL Eosinophils # (Auto) 0 0-0.8 10 ^3/uL Basophils # (Auto) 0 0-0.2 10 ^3/uL Nucleated Red Blood Cells 0.1 % Sodium Level 136 136-145 mmol/L Potassium Level 3.2 L 3.5-5.1 mmol/L Chloride Level 105 98-107 mmol/L Carbon Dioxide Level 20 20-31 mmol/L Anion Gap 11 5-15 Blood Urea Nitrogen 6 L 9-23 mg/dL Creatinine 0.57 0.550-1.02 mg/dL Glomerular Filtration Rate Calc 128 >90 mL/min BUN/Creatinine Ratio 10.5 10.0-20.0 Serum Glucose 87 74-106 mg/dL Calcium Level 9.6 8.7-10.4 mg/dL Beta HCG, Quantitative 26245.0 H 1.5-4.2 mIU/mL Urine Color Yellow Yellow Urine Clarity Clear Clear Urine pH 5.5 5.0-9.0 Urine Specific [place] 1.035 1.001-1.035 Urine Protein 1+ H Negative Urine Ketones 4+ H Negative Urine Blood Negative Negative /uL Urine Nitrite Negative Negative Urine Bilirubin Negative Negative Urine Urobilinogen Normal Negative mg/dL Urine Leukocyte Esterase Negative Negative /uL Urine RBC <1 0 - 4 /hpf Urine WBC 1 0 - 5 /hpf Urine Squamous Epithelial Cells Few <5 /hpf Urine Bacteria None seen None Seen /hpf Urine Mucus Few None Seen Urine Glucose Normal Normal mg/dL PATIENT: RONALD SANDERS ACCT: [id number] UNIT: [id number] : 1995 LOC: ER ROOM / BED: / AGE / SEX: 29 / F ADM STATUS: REG ER SERVICE 37 ORDERING PHYSICIAN: ELIUD SHOEMAKER PROCEDURE(s): OBUS - OB ULTRASOUND COMP GTR 14 WKS REASON: PELVIC PAIN, 16 WEEKS ORDER NUMBER(s): [id number], ACCESSION NUMBER(s): [id number] LIMITED OB ULTRASOUND > 14 WKS: HISTORY: PELVIC PAIN, 16 WEEKS TECHNIQUE: Multiple real-time grayscale images of the gravid uterus with duplex Doppler color flow and M-mode spectral analysis. TRANSDUCER: Transabdominal FINDINGS: IUP single live fetus at 16 weeks 3 days based on composite averages of the BPD, head circumference, abdominal circumference and femur length Estimated weight 154 grams heart rate 160 beats per minute Cervix cervix measures 3.48 cm in length and appears closed Cephalic Presentation Right lateral Grade 1 Placenta without previa or abruption. IMPRESSION: 1. IUP single live fetus at 16 weeks 3 days AUA corresponding to an MAG of 02/02/2025 2. FHR: 160 ATED BY: SHI LYONS Jr., DO DICTATED DATE/TIME: 08/21/242122 SIGNED BY: SHI LYONS Jr., SIGNED DATE/TIME: 08/21/242122 CC: CBC REVIEWED-HEMOGLOBIN 9.7-PATIENT REPORTS HISTORY OF ANEMIA BMP REVIEWED-POTASSIUM 3.2 URINALYSIS REVIEWED WITHOUT ANY SIGNIFICANT ABNORMALITIES BETA HCG REVIEWED OB ULTRASOUND REVIEWED HEP-LOCK IV ORDERED PHENERGAN P.O. ORDERED PATIENT HAD IMPROVEMENT IN SYMPTOMS, DENIED ANY PAIN AND WAS IN NO DISTRESS PRIOR TO DISCHARGE DIET EDUCATION DISCUSSED ADVISED TO FOLLOW UP WITH PCP AND OBGYN IN 1-2 DAYS PATIENT VERBALIZED UNDERSTANDING AND AGREEABLE WITH CURRENT PLAN OF CARE ADVISED TO RETURN TO ER IMMEDIATELY IF SYMPTOMS WORSEN Images Reviewed?: Images reviewed and evaluated by me Time of 1ST Reevaluation: 20:02 Reevaluation 1ST: N/A Time of 2ND Reevaluation: 22:40 Reevaluation 2ND: Improved Patient Education/Counseling: Diagnosis, Treatment, Prognosis, Need For Follow Up Family Education/Counseling: No Family Present Departure 1 Departure Time of Disposition: 22:42 Impression: Primary Impression: Influenza A Additional Impression: Second trimester Disposition: HOME / SELF CARE / HOMELESS Condition: Stable e-Prescriptions Oseltamivir Phosphate (Tamiflu) 75 Mg Cap 1 CAP PO BID for 5 Days, #10 CAP 0 Refills Prov: ELIUD SHOEMAKER 08/21/24 Acetaminophen (Acetaminophen) 500 Mg Tab 500 MG PO Q4HPRN, #30 TAB 0 Refills Prov: ELIUD SHOEMAKER 08/21/24 Discharged With: Self Critical Care Note Critical Care Time?: No Stability Stability form required: No Heart Score Heart Score: Heart Score Response (Comments) Value History N/A 0 EKG N/A 0 Age N/A 0 Risk Factors N/A 0 Troponin N/A 0 Total 0 ELIUD SHOEMAKER Aug 21, 2024 20:43
[2024-08-21] MEDS: SODIUM CHLORIDE 0.9% 1,000 ML IV ONE (20:45)
[2024-08-21] MEDS: PROMETHAZINE HCL 6.25 MG/5 ML ORAL SYRUP PO ONE (20:45)
[2024-08-21] MEDS ORDERED: ACET500T58 PO (20:53)
[2024-08-21] MEDS ORDERED: OSEL75CA5 PO (20:53)
--- NOTE | 2024-08-21 21:26 | DVH ---
LIMITED OB ULTRASOUND > 14 WKS: HISTORY: PELVIC PAIN, 16 WEEKS TECHNIQUE: Multiple real-time grayscale images of the gravid uterus with duplex Doppler color flow an d M-mode spectral analysis. TRANSDUCER: Transabdominal FINDINGS: IUP single live fetus at 16 weeks 3 days based on composite averages of the BPD, head circumference, abdominal circumference and femur length Estimated weight 154 grams heart rate 160 beats per minute Cervix cervix measures 3.48 cm in length and appears closed Cephalic Presentation Right lateral Grade 1 Placenta without previa or abruption. IMPRESSION: 1. IUP single live fetus at 16 weeks 3 days AUA corresponding to an MAG of 02/02/2025 2. FHR: 160
[2024-08-21 21:55] LABS: Basophils # (auto) 0 10 ^3/uL (0-0.2); Basophils % (auto) 0.2 % (0.0-2.0); Eosinophils # (auto) 0 10 ^3/uL (0-0.8); Eosinophils % (auto) 0.2 % (0.0-7.0); Hematocrit 29.6 % (36.0-46.0); Hemoglobin 9.7 g/dL (12.2-16.2); Lymphocytes # (auto) 0.9 10 ^3/uL (0.4-5.4); Lymphocytes % (auto) 9.3 % (10.0-50.0); Mean Corpuscular Hemoglobin 22.8 pg (28.0-32.0); Mean Corpuscular Hgb Conc. 32.8 g/dL (32.0-36.0); Mean Corpuscular Volume 69.7 fL (80.0-100.0); Monocytes # (auto) 0.8 10 ^3/uL (0-1.3); Monocytes % (auto) 7.9 % (0.0-12.0); Neutrophils # (auto) 8.1 10 ^3/uL (1.6-8.6); Neutrophils % (auto) 82.4 % (37.0-80.0); Nucleated Red Blood Cells % 0.1 %; Platelet Count (auto) 318 10^3/uL (140-450); Red Blood Cells 4.26 10^6/uL (4.0-5.20); Red Cell Distribution Width 19.9 % (11.8-14.3); White Blood Cell 9.8 10^3/uL (4.4-10.8)
[2024-08-21 21:57] LABS: Urine Bacteria None Seen /hpf (None Seen)
[2024-08-21 21:59] LABS: Chloride 105 mmol/L (98-107)
[2024-08-21 22:00] LABS: Anion Gap 11 (5-15); Carbon Dioxide 20 mmol/L (20-31)
[2024-08-21 22:01] LABS: Calcium 9.6 mg/dL (8.7-10.4)
[2024-08-21 22:05] LABS: Glucose 87 mg/dL (74-106)
[2024-08-21 22:06] LABS: BUN/Creatinine Ratio 10.5 (10.0-20.0)
[2024-08-21 22:09] LABS: Blood Urea Nitrogen 6 mg/dL (9-23); Potassium 3.2 mmol/L (3.5-5.1); Sodium 136 mmol/L (136-145)
[2024-08-21 22:18] LABS: Urine Blood Negative /uL (Negative); Urine Clarity Clear (Clear); Urine Color Yellow (Yellow); Urine Mucus FEW (None Seen); Urine Protein, UAD 1+ (Negative); Urine Specific Gravity 1.035 (1.001-1.035); Urine Squamous Epithelial Cell FEW /hpf (<5); Urine Urobilinogen Normal (Negative); Urine WBC 1 /hpf (0 - 5); Urine pH 5.5 (5.0-9.0)
[2024-08-21] MEDS: PROMETHAZINE-DM 5 ML ORAL SYRUP PO ONE (22:24)
== END 2024-08-21 22:56 | disposition home or self-care (01) ==
LOC: EEVIPCON 19:15 → ER 19:15
DX: O99.512 Diseases of the respiratory system complicating pregnancy, second trimester (principal); J10.1 Influenza due to other identified influenza virus with other respiratory manifestations; O26.892 Other specified pregnancy related conditions, second trimester; D64.9 Anemia, unspecified; Z3A.16 16 weeks gestation of pregnancy
CPT/HCPCS: 36415; 76805; 80048; 81001; 84702; 85025

== ENCOUNTER 2024-10-10 15:07 | Emergency (ER) | payer BC ==
[~2024-10-10] VITALS: Ht 160 cm; Wt 89.7 kg
[~2024-10-10 15:07] MED LIST changes: +ACET500T58 PO; +OSEL75CA5 PO
--- NOTE | 2024-10-10 15:21 | ED.PDOC ---
History of Present Illness HPI Comments 29-year-old female with PMHx Anemia presents with a chief complaint of lightheadedness, SOB, dizziness, and x 1 month intermittently. Patient states that she is currently 23 weeks , . Patient reports that she stands up from a sitting position and gets instantly dizziness. Patient mentions that she woke up this morning feeling out of breath and "like I just exercised". Patient has Dr. Cleveland as her BANKING MANAGEMENT CONSULTING MANAGER. No other symptoms or modifying factors present at this time. Time Seen by MD: 15:14 Primary Care Provider: UNKNOWN Reviewed Notes: Nurses Notes, Medications, Allergies Allergies: Coded Allergies: No Known Drug Allergy (Verified Allergy, Unknown, 12/19/20) Home Meds Active Scripts Oseltamivir Phosphate (Tamiflu) 75 Mg Cap, 1 CAP PO BID for 5 Days, #10 CAP 0 Refills Prov:ELIUD SHOEMAKER 08/21/24 Acetaminophen (Acetaminophen) 500 Mg Tab, 500 MG PO Q4HPRN, #30 TAB 0 Refills Prov:ELIUD SHOEMAKER 08/21/24 Ondansetron HCl (Ondansetron) 4 Mg Tab, 4 MG PO TID for 4 Days, #12 TAB Prov:CHRISTIANO SANCHES RESIDENT 04/17/24 Ondansetron Odt 4MG Tab (ZOFRAN PO) 4 Mg Tb, 4 MG PO Q6HP PRN, #15 TAB ODT TAB-DISSOLVE IN MOUTH, THEN SWALLOW Prov:ARMEN NEVAREZ PAC 05/02/23 Meclizine HCl (Meclizine 25) 25 Mg Tab, 25 MG PO Q8HP PRN, #15 TAB Prov:ARMEN NEVAREZ PAC 05/02/23 Information Source: Patient Mode of Arrival: Ambulatory Severity: Moderate Timing: Months Duration: Intermittent Prehospital treatment: None Past Medical History PAST MEDICAL HISTORY: Anemia Surgical History (Other): RIGHT BREAST TUMOR REMOVAL NURSERY MANAGER History: No Pertinent NURSERY MANAGER History Family History Family History: Family hx of DM, Family hx of Cancer, Family hx of heart manuel, Family hx of HTN Social History Smoker: Non-Smoker Alcohol: Rarely Drugs: Denies Drug Use Lives In: Home Constitutional: denies: chills, diaphoresis, fatigue, fever, malaise, sweats, weakness, others EENTM: denies: blurred vision, double vision, ear bleeding, ear discharge, ear drainage, ear pain, ear ringing, eye pain, eye redness, hearing loss, mouth pain, mouth swelling, nasal discharge, nose bleeding, nose congestion, nose pain, photophobia, tearing, throat pain, throat swelling, voice changes, others Respiratory: reports: SOB at rest; denies: cough, hemoptysis, orthopnea, shortness of breath, SOB with excertion, stridor, wheezing, others Cardiovascular: reports: lightheadedness; denies: chest pain, dizzy spells, diaphoresis, Dyspnea on exertion, edema, irregular heart beat, left arm pain, palpitations, PND, syncope, others Gastrointestinal: denies: abdomen distended, abdominal pain, blood streaked bowels, constipated, diarrhea, dysphagia, difficulty swallowing, hematemesis, melena, nausea, poor appetite, poor fluid intake, rectal bleeding, rectal pain, vomiting, others Genitourinary: denies: abnormal vagina bleeding, burning, dyspareunia, dysuria, flank pain, frequency, hematuria, incontinence, pain, , vagina discharge, urgency, others Neurological: reports: dizziness; denies: fainting, headache, left sided numbness, left sided weakness, numbness, paresthesia, pre-existing deficit, right sided numbness, right sided weakness, seizure, speech problems, tingling, tremors, weakness, others Musculoskeletal: denies: back pain, gout, joint pain, joint swelling, muscle pain, muscle stiffness, neck pain, others Integumetry: denies: bruises, change in color, change in hair/nails, dryness, laceration, lesions, lumps, rash, wounds, others Allergic/Immunocompromised: denies: Difficulty Healing, Frequent Infections, Hives, Itching, others Hematologic/Lymphatic: denies: anemia, blood clots, easy bleeding, easy bruising, swollen glands, others Endocrine: denies: excessive hunger, excessive sweating, excessive thirst, excessive urination, flushing, intolerance to cold, intolerance to heat, unexplained weight gain, unexplained weight loss, others Psychiatric: denies: anxiety, bipolar disorder, depression, hopeless, panic disorder, schizophrenia, sleepless, suicidal, others All Other Systems: Reviewed and Negative Physical Exam General Appearance: Obese HEENT: Normal ENT Inspection, Pharynx Normal, TMs Normal Neck: Full Range of Motion, Non-Tender, Normal, Normal Inspection Respiratory: Chest Non-Tender, Lungs Clear, No Accessory Muscle Use, No Respiratory Distress, Normal Breath Sounds Cardiovascular: No Edema, No JVD, No Murmur, No Gallop, Normal Peripheral Pulses, Regular Rate/Rhythm Breast Exam: Deferred Gastrointestinal: No Organomegaly, Non Tender, No Pulsatile Mass, Normal Bowel Sounds, Soft Genitalia: Deferred Pelvic: Deferred Rectal: Deferred Extremities: No calf tenderness, Normal capillary refill, Normal inspection, Normal range of motion, Non-tender, No pedal edema Musculoskeletal : Apperance: Normal Neurologic: Alert, banking management consulting manager II-XII nml as Tested, No Motor Deficits, Normal Affect, Normal Mood, No Sensory Deficits Cerebellar Function: Normal Reflexes: Normal Skin: Dry, Normal Color, Warm Lymphatic: No Adenopathy Was a procedure done? Was a procedure done?: No EKG EKG : Pulse Rate (adult): 107 [place]: Normal Cardiac Rhythm: ST Block: None Hypertrophy: LAE ST: Normal Differential Dx Considerations may include: Vertigo, UTI, generalized weakness, X-Ray, Labs, Meds, VS Vital Signs Date Time Temp Pulse Resp B/P (MAP) Pulse Ox O2 Delivery O2 Flow Rate FiO2 10/10/24 15:42 107 10/10/24 15:15 98.1 111 16 125/88 (100) 99 Lab Test 10/10/24 15:31 10/10/24 15:20 10/10/24 15:19 Range/Units White Blood Count 13.4 H 4.4-10.8 10^3/uL Red Blood Count 4.25 4.0-5.20 10^6/uL Hemoglobin 9.0 L 12.2-16.2 g/dL Hematocrit 29.0 L 36.0-46.0 % Mean Corpuscular Volume 68.2 L 80.0-100.0 fL Mean Corpuscular Hemoglobin 21.1 L 28.0-32.0 pg Mean Corpuscular Hemoglobin Concent 30.9 L 32.0-36.0 g/dL Red Cell Distribution Width 17.3 H 11.8-14.3 % Platelet Count 397 140-450 10^3/uL Mean Platelet Volume 7.3 6.9-10.8 fL Neutrophils (%) (Auto) 74.2 37.0-80.0 % Lymphocytes (%) (Auto) 16.0 10.0-50.0 % Monocytes (%) (Auto) 7.3 0.0-12.0 % Eosinophils (%) (Auto) 1.9 0.0-7.0 % Basophils (%) (Auto) 0.6 0.0-2.0 % Neutrophils # (Auto) 9.9 H 1.6-8.6 10 ^3/uL Lymphocytes # (Auto) 2.1 0.4-5.4 10 ^3/uL Monocytes # (Auto) 1.0 0-1.3 10 ^3/uL Eosinophils # (Auto) 0.3 0-0.8 10 ^3/uL Basophils # (Auto) 0.1 0-0.2 10 ^3/uL Nucleated Red Blood Cells 0.1 % Sodium Level 138 136-145 mmol/L Potassium Level 3.8 3.5-5.1 mmol/L Chloride Level 108 H 98-107 mmol/L Carbon Dioxide Level 19 L 20-31 mmol/L Anion Gap 11 5-15 Blood Urea Nitrogen 8 L 9-23 mg/dL Creatinine 0.54 L 0.550-1.02 mg/dL Glomerular Filtration Rate Calc 129 >90 mL/min BUN/Creatinine Ratio 14.8 10.0-20.0 Serum Glucose 155 H 74-106 mg/dL Calcium Level 9.8 8.7-10.4 mg/dL Urine Color Light-yellow Yellow Urine Clarity Clear Clear Urine pH 5.5 5.0-9.0 Urine Specific [place] 1.026 1.001-1.035 Urine Protein Trace H Negative Urine Ketones Trace Negative Urine Blood Negative Negative /uL Urine Nitrite Negative Negative Urine Bilirubin Negative Negative Urine Urobilinogen Normal Negative mg/dL Urine Leukocyte Esterase Negative Negative /uL Urine RBC 2 0 - 4 /hpf Urine Microscopic WBC 1 0-5 /HPF Urine Squamous Epithelial Cells Few <5 /hpf Urine Bacteria None seen None Seen /hpf Urine Mucus Few None Seen Urine Glucose 4+ H Normal mg/dL POC Glucose 145 H 70-106 mg/dl The patient's CBC shows an elevated white blood cell count of 13.4 The patient was anemic with a hemoglobin of 9 and hematocrit of 29 The rest of the CBC and chemistry panel are within normal limits The urine test is negative for infection The patient was being discharged and will follow up with the primary care doctor We are contacting Dr. Cleveland so she is aware of this patient The patient will follow up with her doctor Time of 1ST Reevaluation: 15:44 Reevaluation 1ST: Unchanged Patient Education/Counseling: Diagnosis, Treatment, Prognosis, Need For Follow Up Family Education/Counseling: No Family Present Departure 1 Departure Time of Disposition: 16:19 Impression: Primary Impression: Anemia Qualified Codes: D64.9 - Anemia, unspecified Additional Impression: Second trimester Disposition: 01 HOME / SELF CARE / HOMELESS Condition: Fair Discharged With: Self Critical Care Note Critical Care Time?: No Stability Stability form required: No Heart Score Heart Score: Heart Score Response (Comments) Value History N/A 0 EKG N/A 0 Age N/A 0 Risk Factors N/A 0 Troponin N/A 0 Total 0 I personally scribed for KYA MICHELLE MD ([email or web address]) on 10/10/24 at 15:21. Electronically submitted by Donell Francis ([email or web address]). I personally scribed for KYA MICHELLE MD ([email or web address]) on 10/10/24 at 15:42. Electronically submitted by Donell Francis ([email or web address]). KYA MICHELLE MD Oct 10, 2024 15:21
[2024-10-10 15:41] LABS: Basophils # (auto) 0.1 10 ^3/uL (0-0.2); Basophils % (auto) 0.6 % (0.0-2.0); Eosinophils # (auto) 0.3 10 ^3/uL (0-0.8); Eosinophils % (auto) 1.9 % (0.0-7.0); Lymphocytes # (auto) 2.1 10 ^3/uL (0.4-5.4); Mean Corpuscular Hemoglobin 21.1 pg (28.0-32.0); Mean Corpuscular Hgb Conc. 30.9 g/dL (32.0-36.0); Mean Corpuscular Volume 68.2 fL (80.0-100.0); Monocytes % (auto) 7.3 % (0.0-12.0); Neutrophils # (auto) 9.9 10 ^3/uL (1.6-8.6); Neutrophils % (auto) 74.2 % (37.0-80.0); Nucleated Red Blood Cells % 0.1 %; Platelet Count (auto) 397 10^3/uL (140-450); Red Blood Cells 4.25 10^6/uL (4.0-5.20); Red Cell Distribution Width 17.3 % (11.8-14.3); White Blood Cell 13.4 10^3/uL (4.4-10.8)
[2024-10-10 15:43] LABS: Urine Bacteria None Seen /hpf (None Seen)
[2024-10-10 15:47] LABS: Potassium 3.8 mmol/L (3.5-5.1); Sodium 138 mmol/L (136-145)
[2024-10-10 15:48] LABS: Anion Gap 11 (5-15)
[2024-10-10 15:49] LABS: Calcium 9.8 mg/dL (8.7-10.4)
[2024-10-10 15:53] LABS: BUN/Creatinine Ratio 14.8 (10.0-20.0)
[2024-10-10 15:58] LABS: Blood Urea Nitrogen 8 mg/dL (9-23); Carbon Dioxide 19 mmol/L (20-31); Chloride 108 mmol/L (98-107); Glucose 155 mg/dL (74-106)
[2024-10-10 15:59] LABS: Urine Blood Negative /uL (Negative); Urine Clarity Clear (Clear); Urine Color Light-Yellow (Yellow); Urine Mucus FEW (None Seen); Urine Protein, UAD TRACE (Negative); Urine Specific Gravity 1.026 (1.001-1.035); Urine Squamous Epithelial Cell FEW /hpf (<5); Urine Urobilinogen Normal (Negative); Urine WBC 1 /HPF (0-5); Urine pH 5.5 (5.0-9.0)
[2024-10-10 18:27] VITALS: BP 127/75; PULSE 105; RESP 16; TEMP 98; O2SAT 99
--- NOTE | 2024-10-11 12:56 | ECG ---
[facility] Test Date: 2024-10-10 Test Time: 15:32:24 Pat Name: RONALD SANDERS Department: ER Room: Gender: F Process Manufacturing Engineer: LILA : 1995 Requested By: KYA MICHELLE Order Number: [id number] Reading MD: Kevin Chand Measurements Intervals Ashley Rate: 107 P: 30 AK: 131 QRS: 24 QRSD: 65 T: 22 QT: 313 QTc: 418 Interpretive Statements Sinus tachycardia Probable left atrial enlargement Electronically Signed On 10-13-2024 17:53:45 PST by Kevin Chand Please click the below link to view image of tracing.
== END 2024-10-10 18:31 | disposition home or self-care (01) ==
LOC: ER 15:07 → EEVIPCON 15:07 → ER 18:31
DX: O99.012 Anemia complicating pregnancy, second trimester (principal); Z3A.23 23 weeks gestation of pregnancy; Z98.890 Other specified postprocedural states
CPT/HCPCS: 36415; 80048; 81001; 82947; 82962; 85025; 93005

== ENCOUNTER → 2024-10-24 | Outpatient (CLI) | payer BC ==
[2024-10-24 09:00] LABS: Basophils # (auto) 0.1 10 ^3/uL (0-0.2); Basophils % (auto) 0.9 % (0.0-2.0); Eosinophils # (auto) 0.2 10 ^3/uL (0-0.8); Eosinophils % (auto) 1.8 % (0.0-7.0); Hematocrit 31.2 % (36.0-46.0); Lymphocytes # (auto) 2.3 10 ^3/uL (0.4-5.4); Lymphocytes % (auto) 16.5 % (10.0-50.0); Mean Corpuscular Hgb Conc. 32.1 g/dL (32.0-36.0); Mean Corpuscular Volume 71.6 fL (80.0-100.0); Monocytes # (auto) 0.8 10 ^3/uL (0-1.3); Neutrophils # (auto) 10.5 10 ^3/uL (1.6-8.6); Neutrophils % (auto) 74.8 % (37.0-80.0); Nucleated Red Blood Cells % 0.1 %; Platelet Count (auto) 342 10^3/uL (140-450); Red Blood Cells 4.35 10^6/uL (4.0-5.20); Red Cell Distribution Width 18.7 % (11.8-14.3)
== END | disposition home or self-care (01) ==
LOC: LAB 08:35
PROVIDERS: ATTEND Obstetrics & Gynecology
DX: Z34.00 Encounter for supervision of normal first pregnancy, unspecified trimester (principal); Z3A.00 Weeks of gestation of pregnancy not specified
CPT/HCPCS: 36415; 82951; 83036; 85025

== ENCOUNTER 2024-11-30 11:50 | Observation (INO) | payer BC ==
[~2024-11-30] VITALS: Ht 160 cm; Wt 86.2 kg
[2024-11-30] MEDS: ONDANSETRON ODT 4 MG TAB PO ONE (13:42)
[2024-11-30 14:12] LABS: Basophils # (auto) 0 10 ^3/uL (0-0.2); Basophils % (auto) 0.2 % (0.0-2.0); Eosinophils # (auto) 0.1 10 ^3/uL (0-0.8); Hemoglobin 10.3 g/dL (12.2-16.2); Lymphocytes # (auto) 2.2 10 ^3/uL (0.4-5.4); Monocytes # (auto) 0.8 10 ^3/uL (0-1.3); Nucleated Red Blood Cells % 0.2 %; White Blood Cell 14.3 10^3/uL (4.4-10.8)
[2024-11-30 14:14] LABS: Eosinophils % (auto) 0.7 % (0.0-7.0); Hematocrit 33.1 % (36.0-46.0); Lymphocytes % (auto) 15.7 % (10.0-50.0); Mean Corpuscular Hemoglobin 21.9 pg (28.0-32.0); Mean Corpuscular Volume 70.7 fL (80.0-100.0); Monocytes % (auto) 5.7 % (0.0-12.0); Neutrophils # (auto) 11.1 10 ^3/uL (1.6-8.6); Neutrophils % (auto) 77.7 % (37.0-80.0); Platelet Count (auto) 369 10^3/uL (140-450); Red Blood Cells 4.68 10^6/uL (4.0-5.20)
[2024-11-30 14:15] LABS: Red Cell Distribution Width 22.7 % (11.8-14.3)
[2024-11-30 14:20] LABS: Alanine Aminotransferase 15 U/L (7-40); Albumin 4.1 g/dL (3.2-4.8); Alkaline Phosphatase 154 U/L (46-116); Anion Gap 12 (5-15); Aspartate Aminotransferase 15 U/L (13-40); BUN/Creatinine Ratio 18.2 (10.0-20.0); Bilirubin, Total 0.4 mg/dL (0.2-1.0); Blood Urea Nitrogen 8 mg/dL (9-23); Calcium 9.5 mg/dL (8.7-10.4); Carbon Dioxide 17 mmol/L (20-31); Chloride 107 mmol/L (98-107); Glucose 72 mg/dL (74-106); Potassium 3.6 mmol/L (3.5-5.1); Sodium 136 mmol/L (136-145); Total Protein 6.9 g/dL (5.7-8.2)
[2024-11-30] MEDS ORDERED: PREN-96 PO (15:35)
--- NOTE | 2024-11-30 18:20 | DVHDS2 ---
Physician Discharge Progress N Final Diagnosis: 3rd trim preg, acute dehydration Near syncopal episode Secondary Diagnosis: GDM Operations or Procedures: Operations or Procedures NST observation Maternal laboratory testing, normal Condition on Discharge: Stable Disposition: Home Discharge Instructions: Diet: Consistent carbohydrate Activity: Light activity Follow Up/Referral: PRN Medications: N/A Follow Up Care: Discharge Statement: "Patient was advised to return to the ER or call 911 if any headaches, dizziness, shortness of breath, chest pain, abdominal pain, bleeding, fevers, or worsening of medical condition. Patient was counseled about treatment plan, medications, possible side effects, patientverbalized understanding. All questions were answered to the best of my ability. This discharge took greater then 30 minutes in planning, reviewing documentation, counseling the patient, and discussing with other team members." Visit Coding OBGYN Date of Service: Nov 30, 2024 Billing Provider: BITA ORTIZ DO JUDICIAL ASSISTANT Common Visit Codes: 01301-JQP/OBS SAME DATE (MOD) BITA ORTIZ DO Nov 30, 2024 18:20
== END 2024-11-30 15:47 | disposition home or self-care (01) ==
LOC: LDRP 11:50
PROVIDERS: ADMIT Obstetrics & Gynecology; ATTEND Obstetrics & Gynecology
DX: O26.893 Other specified pregnancy related conditions, third trimester (principal); R55 Syncope and collapse; E86.0 Dehydration; O24.419 Gestational diabetes mellitus in pregnancy, unspecified control; Z3A.30 30 weeks gestation of pregnancy; Z79.899 Other long term (current) drug therapy
CPT/HCPCS: 36415; 80053; 81002; 82962; 85025; 94760; 96360; 96361; G0378; Q0162

== ENCOUNTER 2024-12-13 07:33 | Observation (INO) | payer BC ==
[~2024-12-13] VITALS: Ht 160 cm; Wt 93.9 kg
[~2024-12-13 07:33] MED LIST changes: +PREN-96 PO
[2024-12-13] MEDS ORDERED: METF-370 PO (11:41)
[2024-12-13] MEDS ORDERED: INSLANTI SC (11:42)
--- NOTE | 2024-12-13 12:43 | DVH ---
BIOPHYSICAL PROFILE HISTORY: GDMA2 TECHNIQUE: Multiple transabdominal real-time grayscale sonographic images through the gravid uterus of the fetus with duplex Doppler color flow and M-mode spectral analysis FINDINGS: BIOPHYSICAL PROFILE: breathing score: 2 movement score: 2 tone score: 2 Quantitative JORGE score: 2 (JORGE: 17.63 Cm.) Total score: 8 The cervix not well visualized Single live fetus in cephalic presentation. heart rate 162 beats per minute. Posterior placenta without previa or abruption IMPRESSION: Biophysical profile score: 8
--- NOTE | 2024-12-14 12:55 | DVHDS2 ---
Physician Discharge Progress N Final Diagnosis: gdm 32wks Operations or Procedures: Operations or Procedures nst reactive reviewed,sono Condition on Discharge: Good Disposition: Home Discharge Instructions: Diet: Consistent carbohydrate Activity: Light activity Medications: na Follow Up Care: Specialist: 4d Discharge Statement: "Patient was advised to return to the ER or call 911 if any headaches, dizziness, shortness of breath, chest pain, abdominal pain, bleeding, fevers, or worsening of medical condition. Patient was counseled about treatment plan, medications, possible side effects, patient�verbalized understanding. All questions were answered to the best of my ability. This discharge took greater then 30 minutes in planning, reviewing document ation, counseling the patient, and discussing with other team members." Visit Coding OBGYN Date of Service: December 13, 2024 Billing Provider: FARHAT MALHOTRA DO PRINT DECORATOR Common Visit Codes: [id number] INP/OBS CARE (HIGH) PRINT DECORATOR Procedure Codes: 98576-07- NON-STRESS TEST FARHAT MALHOTRA DO December 14, 2024 12:55
== END 2024-12-13 12:04 | disposition home or self-care (01) ==
LOC: LDRP 08:51 → UNDOADMOB 10:45 → UNDODISOB 12:04
PROVIDERS: ADMIT Obstetrics & Gynecology; ATTEND Obstetrics & Gynecology
DX: O24.419 Gestational diabetes mellitus in pregnancy, unspecified control (principal); Z79.899 Other long term (current) drug therapy; Z98.890 Other specified postprocedural states
CPT/HCPCS: 76818; 81002; 94760; G0378; 59025; 76819

== ENCOUNTER 2024-12-17 07:43 | Observation (INO) | payer BC ==
[~2024-12-17] VITALS: Ht 160 cm; Wt 93.9 kg
[~2024-12-17 07:43] MED LIST changes: +INSLANTI SC; +METF-370 PO
--- NOTE | 2024-12-17 11:50 | DVH ---
CLINICAL HISTORY: Gestational diabetes. COMPARISON: US BIOPHYSICAL PROFILE on DOS: 12/13/24 TECHNIQUE: biophysical profile was performed. Transabdominal sonographic images of the fetus we re obtained. FINDINGS: The fetus is in cephalic position. heart rate measures 155 BPM. Amniotic fluid index measures 18.9 cm. The placenta is posterior in position. BPP profile is an overall score of 8/8, with 2/2 points for breathing, with at least one episode of breathing over a 30 second duration during a 30 minute observation, 2/2 points for m ovements, with 3 or more discrete body or limb movements, 2/2 points for tone, with one or more episodes of extremity extension with return to flexion, or opening and closing of hand, and 2/ 2 points for amniotic fluid, with at least 1 pocket of amniotic fluid that measures 2 cm in 2 perpend icular planes. IMPRESSION: BPP score of 8/8.
--- NOTE | 2024-12-18 05:50 | DVHDS2 ---
Discharge Summary Date of Admission December 17, 2024 at 10:57 Date of Discharge: December 17, 2024 Admitting Diagnosis Thirty-three week GDM A2 here for monitoring Brief Hx & Hospital Course: Reassuring heart tones and fluid Condition at Discharge: Good Final Diagnosis/Problems List GDM A2 33 weeks Discharge Disposition: Home Discharge Instruct/Medications Diet: Consistent carbohydrate Activity: Light activity Discharge Statement: "Patient was advised to return to the ER or call 911 if any headaches, dizziness, shortness of breath, chest pain, abdominal pain, bleeding, fevers, or worsening of medical condition. Patient was counseled about treatment plan, medications, possible side effects, patient�verbalized understanding. All questions were answered to the best of my ability. This discharge took greater then 30 minutes in planning, reviewing documentation, counseling the patient, and discussing with other team members." ASSESSMENT ASSESSMENT Assessment Visit Coding OBGYN Date of Service: December 17, 2024 Billing Provider: JOSELIN COLÓN DO SHANK INSPECTOR Common Visit Codes: 33433-QCV/OBS SAME DATE (LOW), 22670-ITK/OBS SAME DATE (MOD), 23703-VQV/OBS SAME DATE (HIGH) SHANK INSPECTOR Procedure Codes: 44155-55- NON-STRESS TEST JOSELIN COLÓN DO December 18, 2024 05:50
== END 2024-12-17 12:08 | disposition home or self-care (01) ==
LOC: LDRP 10:57 → UNDOADMOB 10:57 → LDRP 11:05 → UNDODISOB 12:08
PROVIDERS: ADMIT Obstetrics & Gynecology; ATTEND Obstetrics & Gynecology
DX: O24.419 Gestational diabetes mellitus in pregnancy, unspecified control (principal); Z98.890 Other specified postprocedural states; Z79.899 Other long term (current) drug therapy; Z3A.33 33 weeks gestation of pregnancy
CPT/HCPCS: 59025; 76819; 81002; 94760; G0378; 76818

== ENCOUNTER 2024-12-20 07:18 | Observation (INO) | payer BC ==
--- NOTE | 2024-12-20 14:23 | DVH ---
BIOPHYSICAL PROFILE HISTORY: GDMA2 TECHNIQUE: Multiple transabdominal real-time grayscale sonographic images through the gravid uterus of the fetus with duplex Doppler color flow and M-mode spectral analysis FINDINGS: BIOPHYSICAL PROFILE: breathing score: 2 movement score: 2 tone score: 2 Quantitative JORGE score: 2 (JORGE: 17.5 Cm.) Total score: 8 The cervix not well visualized Single live fetus in cephalic presentation. heart rate 143 beats per minute. Grade 2 posterior placenta without previa or abruption IMPRESSION: Biophysical profile score: 8
--- NOTE | 2024-12-21 16:05 | DVHDS2 ---
Physician Discharge Progress N Final Diagnosis: gdm 33wks Operations or Procedures: Operations or Procedures nst reactive reviwed ,sono Condition on Discharge: Good Disposition: Home Discharge Instructions: Diet: Regular Activity: No Restrictions, As Tolerated Medications: na Follow Up Care: Specialist: 3d Discharge Statement: "Patient was advised to return to the ER or call 911 if any headaches, dizziness, shortness of breath, chest pain, abdominal pain, bleeding, fevers, or worsening of medical condition. Patient was counseled about treatment plan, medications, possible side effects, patientverbalized understanding. All questions were answered to the best of my ability. This discharge took greater then 30 minutes in planning, reviewing documenta tion, counseling the patient, and discussing with other team members." Visit Coding OBGYN Date of Service: December 20, 2024 Billing Provider: FARHAT MALHOTRA DO BEAN SNIPPER Common Visit Codes: 98154-GUFIVOC OBS CARE (HIGH) BEAN SNIPPER Procedure Codes: 54367-93- NON-STRESS TEST FARHAT MALHOTRA DO December 21, 2024 16:05
== END 2024-12-20 14:56 | disposition home or self-care (01) ==
LOC: LDRP 11:00
PROVIDERS: ADMIT Obstetrics & Gynecology; ATTEND Obstetrics & Gynecology
DX: O24.419 Gestational diabetes mellitus in pregnancy, unspecified control (principal); Z3A.33 33 weeks gestation of pregnancy; Z79.899 Other long term (current) drug therapy; Z98.890 Other specified postprocedural states
CPT/HCPCS: 76818; 81002; G0378; 59025; 76819

== ENCOUNTER 2024-12-24 07:09 | Observation (INO) | payer BC ==
--- NOTE | 2024-12-24 12:04 | DVH ---
CLINICAL HISTORY: Gestational diabetes. COMPARISON: US BIOPHYSICAL PROFILE on DOS: 12/20/24, US BIOPHYSICAL PROFILE on DOS: 12/17/24, US BIOPHY SICAL PROFILE on DOS: 12/13/24 TECHNIQUE: biophysical profile was performed. Transabdominal sonographic images of the fetus we re obtained. FINDINGS: The fetus is in cephalic position. heart rate measures 158 BPM. Amniotic fluid index measures 15 cm. The placenta is fundal in position. Possible nuchal cord X1 seen. BPP profile is an overall score of 8/8, with 2/2 points for breathing, with at least one episode of breathing over a 30 second duration during a 30 minute observation, 2/2 points for m ovements, with 3 or more discrete body or limb movements, 2/2 points for tone, with one or more episodes of extremity extension with return to flexion, or opening and closing of hand, and 2/ 2 points for amniotic fluid, with at least 1 pocket of amniotic fluid that measures 2 cm in 2 perpend icular planes. IMPRESSION: 1. BPP score of 8/8. 2. Possible nuchal cord.
--- NOTE | 2024-12-24 17:35 | DVHDS2 ---
Physician Discharge Progress N Final Diagnosis: GDMA2 Secondary Diagnosis: Nuchal cord Operations or Procedures: Operations or Procedures NST reactive reviewed BPP/JORGE all WNL Condition on Discharge: Stable Disposition: Home Discharge Instructions: Diet: Consistent carbohydrate Activity: No Restrictions, As Tolerated Follow Up/Referral: As scheduled Medications: N/A Follow Up Care: Discharge Statement: "Patient was advised to return to the ER or call 911 if any headaches, d izziness, shortness of breath, chest pain, abdominal pain, bleeding, fevers, or worsening of medical condition. Patient was counseled about treatment plan, medications, possible side effects, patientverbalized understanding. All questions were answered to the best of my ability. This discharge took greater then 30 minutes in planning, reviewing documentation, counseling the patient, and discussing with other team members." Visit Coding OBGYN Date of Service: December 24, 2024 Billing Provider: BITA ORTIZ DO ELECTROTYPE MOLDER Common Visit Codes: 02237-[id number] INP/OBS CARE(HIGH) ELECTROTYPE MOLDER Procedure Codes: 51928-82- NON-STRESS TEST BITA ORTIZ DO December 24, 2024 17:35
== END 2024-12-24 13:12 | disposition home or self-care (01) ==
LOC: LDRP 10:55 → UNDOADMOB 10:55 → LDRP 11:12 → UNDODISOB 13:12
PROVIDERS: ADMIT Obstetrics & Gynecology; ATTEND Obstetrics & Gynecology
DX: O24.419 Gestational diabetes mellitus in pregnancy, unspecified control (principal); O69.81X0 Labor and delivery complicated by cord around neck, without compression, not applicable or unspecified; Z98.890 Other specified postprocedural states; Z79.899 Other long term (current) drug therapy; Z3A.34 34 weeks gestation of pregnancy
CPT/HCPCS: 76818; 81002; 82948; 94760; G0378; 59025; 76819

== ENCOUNTER 2024-12-27 06:32 | Observation (INO) | payer BC ==
[~2024-12-27] VITALS: Ht 160 cm; Wt 82.6 kg
--- NOTE | 2024-12-27 12:22 | DVH ---
BIOPHYSICAL PROFILE HISTORY: GDMA2 Comparison Study: US BIOPHYSICAL PROFILE on DOS: 12/24/24, US BIOPHYSICAL PROFILE on DOS: 12/20/24, US BIOPHYSICAL PROFILE on DOS: 12/17/24, US BIOPHYSICAL PROFILE on DOS: 12/13/24 TECHNIQUE: Multiple real-time grayscale sonographic images through the gravid uterus of the fetus wi th duplex Doppler color flow and M-mode spectral analysis FINDINGS: BIOPHYSICAL PROFILE: breathing score: 2 movement score: 2 tone score: 2 Quantitative JORGE score: 2 (JORGE: 17.6 Cm.) Total score: 8 The cervix is not visualized Single live fetus in cephalic presentation. heart rate 157 beats per minute. Posterior placenta without previa or abruption IMPRESSION: Biophysical profile score: 8/8
[2024-12-27] MEDS: LACTATED RINGER'S 2,000 ML IV ONE (12:38)
--- NOTE | 2024-12-28 11:50 | DVHDS2 ---
Physician Discharge Progress N Final Diagnosis: gdm 34wks Operations or Procedures: Operations or Procedures nst reactive reviewed,sono Condition on Discharge: Good Disposition: Home Discharge Instructions: Diet: Consistent carbohydrate Activity: No Restrictions, As Tolerated Follow Up/Referral: as scheduled Medications: na Follow Up Care: Specialist: 3d Discharge Statement: "Patient was advised to return to the ER or call 911 if any headaches, dizziness, shortness of breath, chest pain, abdominal pain, bleeding, fevers, or worsening of medical condition. Patient was counseled about treatment plan, medications, possible side effects, patientverbalized understanding. All questions were answered to the best of my ability. This discharge took greater then 30 minutes in planning, reviewing documentation, counseling the patient, and discussing with other team members." Visit Coding OBGYN Date of Service: December 28, 2024 Billing Provider: FARHAT MALHOTRA DO SED SPECIAL EDUCATION TEACHER Common Visit Codes: 95360-[id number] OBS CARE (HIGH) SED SPECIAL EDUCATION TEACHER Procedure Codes: 04905-40- NON-STRESS TEST FARHAT MALHOTRA DO December 28, 2024 11:50
== END 2024-12-27 12:38 | disposition home or self-care (01) ==
LOC: LDRP 11:00
PROVIDERS: ADMIT Obstetrics & Gynecology; ATTEND Obstetrics & Gynecology
DX: O24.419 Gestational diabetes mellitus in pregnancy, unspecified control (principal); O21.2 Late vomiting of pregnancy; Z3A.34 34 weeks gestation of pregnancy; Z79.899 Other long term (current) drug therapy; Z98.890 Other specified postprocedural states
CPT/HCPCS: 76818; 81002; 82948; 82962; 96360; G0378; 59025; 76819

== ENCOUNTER 2024-12-30 10:42 | Observation (INO) | payer BC ==
--- NOTE | 2024-12-30 12:58 | DVH ---
BIOPHYSICAL PROFILE HISTORY: GDMA2 TECHNIQUE: Multiple transabdominal real-time grayscale sonographic images through the gravid uterus o f the fetus with duplex doppler color flow and M-mode spectral analysis FINDINGS: BIOPHYSICAL PROFILE: breathing score: 2 movement score: 2 tone score: 2 Quantitative JORGE score: 2 (JORGE: 14.5 cm.) Total score: 8/8 Single live fetus in cephalic presentation. heart rate 145 beats per minute. Posterior placenta without previa or abruption Biophysical profile score 8/8 corresponding to an MAG of 02/02/25 IMPRESSION: Biophysical profile score: 8/8
--- NOTE | 2024-12-31 06:16 | DVHDS2 ---
Discharge Summary Date of Admission December 30, 2024 at 10:42 Date of Discharge: December 30, 2024 Admitting Diagnosis 35 wk GDMA2 reassuring FHT on NST Brief Hx & Hospital Course: GDM A2 35 wks Condition at Discharge: Good Final Diagnosis/Problems List same Discharge Disposition: Home Discharge Instruct/Medications Diet: Cardiac 2g Na,low cholest Activity: No Restrictions, As Tolerated Activity comment: kick counts labor precautions Discharge Statement: "Patient was advised to return to the ER or call 911 if any headaches, dizziness, shortness of breath, chest pain, abdominal pain, bleeding, fevers, or worsening of medical condition. Patient was counseled about treatment plan, medications, possible side effects, patientverbalized understanding. All questions were answered to the best of my ability. This discharge took greater then 30 minutes in planning, reviewing documentation, counseling the patient, and discussing with other team members." ASSESSMENT ASSESSMENT Assessment Visit Coding OBGYN Date of Service: December 30, 2024 Billing Provider: JOSELIN COLÓN DO FUNDRAISING DIRECTOR Common Visit Codes: [id number] INP/OBS CARE(LOW), 28362-VHS/OBS SAME DATE (MOD), 93508-IVQ/OBS SAME DATE (HIGH) FUNDRAISING DIRECTOR Procedure Codes: 07324-27- NON-STRESS TEST JOSELIN COÓLN DO December 31, 2024 06:16
== END 2024-12-30 13:20 | disposition home or self-care (01) ==
LOC: LDRP 10:42
PROVIDERS: ADMIT Obstetrics & Gynecology; ATTEND Obstetrics & Gynecology
DX: O24.419 Gestational diabetes mellitus in pregnancy, unspecified control (principal); Z3A.35 35 weeks gestation of pregnancy; Z79.899 Other long term (current) drug therapy
CPT/HCPCS: 76818; 81002; 94760; 96360; 96361; G0378; 59025; 76819

== ENCOUNTER 2025-01-03 09:34 | Observation (INO) | payer BC ==
[2025-01-03] MEDS ORDERED: METF-370 PO (13:41)
[2025-01-03] MEDS ORDERED: INSU100I70 SC (13:41)
--- NOTE | 2025-01-03 14:31 | DVH ---
BIOPHYSICAL PROFILE HISTORY: PTL/ GDMA2 TECHNIQUE: Multiple transabdominal real-time grayscale sonographic images through the gravid uterus of the fetus with duplex Doppler color flow and M-mode spectral analysis FINDINGS: BIOPHYSICAL PROFILE: breathing score: 2 movement score: 2 tone score: 2 Quantitative JORGE score: 2 (JORGE: 15.1 Cm.) Total score: 8 The cervix not well visualized Single live fetus in cephalic presentation. heart rate 152 beats per minute. Posterior placenta without previa or abruption IMPRESSION: Biophysical profile score: 8
[2025-01-03] MEDS ORDERED: METHYLERGONOVINE MALEATE 0.2 MG/ML AMP IM PRN (14:45)
--- NOTE | 2025-01-04 22:09 | DVHDS2 ---
Physician Discharge Progress N Final Diagnosis: gdm 35 wks Operations or Procedures: Operations or Procedures nst reactive reviwed,sono Condition on Discharge: Good Disposition: Home Discharge Instructions: Diet: Consistent carbohydrate Activity: No Restrictions, As Tolerated Medications: na Follow Up Care: Specialist: 1w Discharge Statement: "Patient was advised to return to the ER or call 911 if any headaches, dizziness, shortness of breath, chest pain, abdominal pain, bleeding, fevers, or worsening of medical condition. Patient was counseled about treatment plan, medications, possible side effects, patientverbalized understanding. All questions were answered to the best of my ability. This discharge took greater then 30 minutes in planning, reviewing documentation, counseling the patient, and discussing with other team members." Visit Coding OBGYN Date of Service: January 03, 2025 Billing Provider: FARHAT MALHOTRA DO ASSEMBLER FOR PULLER OVER MACHINE Common Visit Codes: [id number] OBS CARE (HIGH) ASSEMBLER FOR PULLER OVER MACHINE Procedure Codes: 16125-63- NON-STRESS TEST FARAHT MALHOTRA DO January 04, 2025 22:09
== END 2025-01-03 14:57 | disposition home or self-care (01) ==
LOC: UNDOADMOB 12:05 → LDRP 12:05
PROVIDERS: ADMIT Obstetrics & Gynecology; ATTEND Obstetrics & Gynecology
DX: O24.419 Gestational diabetes mellitus in pregnancy, unspecified control (principal); O26.893 Other specified pregnancy related conditions, third trimester; R51.9 Headache, unspecified; Z98.890 Other specified postprocedural states; Z3A.35 35 weeks gestation of pregnancy; Z79.899 Other long term (current) drug therapy
CPT/HCPCS: 76818; 81002; 94760; G0378; 59025; 76819

== ENCOUNTER 2025-01-07 10:58 | Observation (INO) | payer BC ==
[~2025-01-07 10:58] MED LIST changes: +INSU100I70 SC
--- NOTE | 2025-01-07 11:50 | DVH ---
BIOPHYSICAL PROFILE HISTORY: GDMA2 TECHNIQUE: Multiple transabdominal real-time grayscale sonographic images through the gravid uterus of the fetus with duplex Doppler color flow and M-mode spectral analysis FINDINGS: BIOPHYSICAL PROFILE: breathing score: 2 movement score: 2 tone score: 2 Quantitative JORGE score: 2 (JORGE: 15.4 Cm.) Total score: 8 The cervix not well visualized. Single live fetus in cephalic presentation. heart rate 130 beats per minute. Posterior placenta without previa or abruption IMPRESSION: Biophysical profile score: 8/8
[2025-01-07 12:24] LABS: Basophils # (auto) 0 10 ^3/uL (0-0.2); Eosinophils # (auto) 0.2 10 ^3/uL (0-0.8); Hemoglobin 9.5 g/dL (12.2-16.2); Lymphocytes # (auto) 1.9 10 ^3/uL (0.4-5.4); Lymphocytes % (auto) 18.2 % (10.0-50.0)
[2025-01-07 12:26] LABS: Basophils % (auto) 0.4 % (0.0-2.0); Eosinophils % (auto) 1.8 % (0.0-7.0); Hematocrit 30.6 % (36.0-46.0); Mean Corpuscular Hemoglobin 20.5 pg (28.0-32.0); Mean Corpuscular Hgb Conc. 30.9 g/dL (32.0-36.0); Mean Corpuscular Volume 66.3 fL (80.0-100.0); Monocytes # (auto) 0.8 10 ^3/uL (0-1.3); Monocytes % (auto) 7.3 % (0.0-12.0); Neutrophils # (auto) 7.6 10 ^3/uL (1.6-8.6); Neutrophils % (auto) 72.3 % (37.0-80.0); Nucleated Red Blood Cells % 0.2 %; Platelet Count (auto) 330 10^3/uL (140-450); Red Blood Cells 4.63 10^6/uL (4.0-5.20); White Blood Cell 10.6 10^3/uL (4.4-10.8)
[2025-01-07 12:31] LABS: Red Cell Distribution Width 22.2 % (11.8-14.3)
[2025-01-07 12:40] LABS: INR 0.92 (0.9-1.15); Partial Thromboplastin Time 24.9 SEC (24.5-34.5); Prothrombin Time 9.8 sec (9.3-11.8)
[2025-01-07 12:43] LABS: Urine Bacteria FEW /hpf (None Seen); Urine Blood Negative /uL (Negative); Urine Clarity Turbid (Clear); Urine Color Light-Yellow (Yellow); Urine Mucus FEW (None Seen); Urine Protein, UAD Negative (Negative); Urine Specific Gravity 1.011 (1.001-1.035); Urine Squamous Epithelial Cell FEW /hpf (<5); Urine Urobilinogen Normal (Negative); Urine WBC 2 /HPF (0-5); Urine pH 5.5 (5.0-9.0)
[2025-01-07 12:47] LABS: Anisocytosis Slight
[2025-01-07 12:48] LABS: Hypochromia Moderate
[2025-01-07 12:49] LABS: Large Platelets FEW; Platelet Estimate Adequa
[2025-01-07 12:55] LABS: Protein, Urine 18.6 mg/dL (1-14)
[2025-01-07 12:57] LABS: Creatinine, Urine 60.92 mg/dL (30.0-125.0); Urine Protein/Creatinine Ratio 0.31
[2025-01-07 13:00] LABS: Alanine Aminotransferase 11 U/L (7-40); Albumin 3.7 g/dL (3.2-4.8); Anion Gap 10 (5-15); Aspartate Aminotransferase 20 U/L (13-40); BUN/Creatinine Ratio 15.4 (10.0-20.0); Bilirubin, Total 0.4 mg/dL (0.2-1.0); Calcium 9.3 mg/dL (8.7-10.4); Glucose 81 mg/dL (74-106); Potassium 3.9 mmol/L (3.5-5.1); Sodium 138 mmol/L (136-145); Total Protein 6.1 g/dL (5.7-8.2); Uric Acid 4.5 mg/dL (3.1-7.8)
[2025-01-07 13:02] LABS: Alkaline Phosphatase 193 U/L (46-116); Blood Urea Nitrogen 8 mg/dL (9-23); Carbon Dioxide 18 mmol/L (20-31); Chloride 110 mmol/L (98-107)
--- NOTE | 2025-01-08 00:11 | DVHDS2 ---
Physician Discharge Progress N Final Diagnosis: gdm 36wks Operations or Procedures: Operations or Procedures nst reactive reviewed,sono Condition on Discharge: Good Disposition: Home Discharge Instructions: Diet: Cardiac 2g Na,low cholest Activity: No Restrictions, As Tolerated Medications: na Follow Up Care: Specialist: 2d Discharge Statement: "Patient was advised to return to the ER or call 911 if any headaches, dizziness, shortness of breath, chest pain, abdominal pain, bleeding, fevers, or worsening of medical condition. Patient was counseled about treatment plan, medications, possible side effects, patientverbalized understanding. All questions were answered to the best of my ability. This discharge took greater then 30 minutes in planning, reviewing documentation, counseling the patient, and discussing with other team members." Visit Coding OBGYN Date of Service: Jan 07, 2025 Billing Provider: FARHAT MALHOTRA DO TRIMMER CLIMBER Common Visit Codes: [id number] INP/OBS CARE (HIGH) TRIMMER CLIMBER Procedure Codes: 94221-39- NON-STRESS TEST FARHAT MALHOTRA DO Jan 08, 2025 00:11
== END 2025-01-07 13:25 | disposition home or self-care (01) ==
LOC: LDRP 10:58
PROVIDERS: ADMIT Obstetrics & Gynecology; ATTEND Obstetrics & Gynecology
DX: O24.419 Gestational diabetes mellitus in pregnancy, unspecified control (principal); R79.1 Abnormal coagulation profile; Z3A.36 36 weeks gestation of pregnancy; Z79.899 Other long term (current) drug therapy
CPT/HCPCS: 36415; 76818; 80053; 81001; 81002; 82570; 82948; 84156; 84550; 85025; 85610; 85730; 94760; G0378; 59025; 76819

== ENCOUNTER 2025-01-10 06:28 | Observation (INO) | payer BC ==
[2025-01-10 08:46] LABS: Urine Bacteria FEW /hpf (None Seen); Urine Blood Negative /uL (Negative); Urine Clarity Turbid (Clear); Urine Color Light-Yellow (Yellow); Urine Mucus FEW (None Seen); Urine Protein, UAD Negative (Negative); Urine Specific Gravity 1.014 (1.001-1.035); Urine Squamous Epithelial Cell MOD /hpf (<5); Urine Urobilinogen Normal (Negative); Urine WBC 4 /HPF (0-5); Urine pH 5.5 (5.0-9.0)
[2025-01-10 08:53] LABS: Protein, Urine 20.4 mg/dL (1-14)
[2025-01-10 08:55] LABS: Creatinine, Urine 78.25 mg/dL (30.0-125.0); Urine Protein/Creatinine Ratio 0.26
[2025-01-10 09:08] LABS: Protein, Urine 9.9 mg/dL (1-14)
[2025-01-10 09:24] LABS: 24 Hr. Total Protein, Urine 267.3 mg/24 Hr (<149.1)
--- NOTE | 2025-01-10 09:52 | DVH ---
OB ULTRASOUND, LIMITED CLINICAL INDICATION: gdma2 r/o PIH TECHNIQUE: Multiple grayscale ultrasound and M-mode images were obtained of the pelvis for evaluation of intrauterine . COMPARISON: US BIOPHYSICAL PROFILE on DOS: 01/07/25, US BIOPHYSICAL PROFILE on DOS: 01/03/25, US BIOPHYS ICAL PROFILE on DOS: 12/30/24 FINDINGS: A single living fetus is seen in cephalic presentation. Biophysical profile: 03/15 breathin movements: 2 tone: 2 Amniotic fluid: 2 Placenta: Posterior, grade 2. Amniotic fluid: Visibly normal. JORGE 17.1 cm heart rate: 167 beats/min. A complete anatomic survey was not performed on this exam. IMPRESSION: Biophysical profile: 03/15
--- NOTE | 2025-01-12 08:35 | DVHDS2 ---
Physician Discharge Progress N Final Diagnosis: gdm,pih 36wks Operations or Procedures: Operations or Procedures nst reactive reviwed,sono Condition on Discharge: Good Disposition: Home Discharge Instructions: Diet: Consistent carbohydrate Activity: No Restrictions, As Tolerated Medications: na Follow Up Care: Specialist: 3d Discharge Statement: "Patient was advised to return to the ER or call 911 if any headaches, dizziness, shortness of breath, chest pain, abdominal pain, bleeding, fevers, or worsening of medical condition. Patient was counseled about treatment plan, medications, possible side effects, patientverbalized understanding. All questions were answered to the best of my ability. This discharge took greater then 30 minutes in planning, reviewing documentation, counseling the patient, and discussing with other team members." Visit Coding OBGYN Date of Service: Jan 10, 2025 Billing Provider: FARHAT MALHOTRA DO DIRECTOR OF RETAIL ANALYTICS Common Visit Codes: [id number] OBS CARE (HIGH) DIRECTOR OF RETAIL ANALYTICS Procedure Codes: 04146-WKV.SURG: W/SALPINGOSTOMY, 72048-19- NON- STRESS TEST FARHAT MALHOTRA DO Jan 12, 2025 08:35
== END 2025-01-10 10:00 | disposition home or self-care (01) ==
LOC: UNDOADMOB 07:27 → LDRP 07:27
PROVIDERS: ADMIT Obstetrics & Gynecology; ATTEND Obstetrics & Gynecology
DX: O24.419 Gestational diabetes mellitus in pregnancy, unspecified control (principal); O13.3 Gestational [pregnancy-induced] hypertension without significant proteinuria, third trimester; Z3A.36 36 weeks gestation of pregnancy; Z79.899 Other long term (current) drug therapy; Z98.890 Other specified postprocedural states
CPT/HCPCS: 76818; 81001; 81002; 82570; 84156; 94760; G0378; 59025; 76819

== ENCOUNTER 2025-01-14 03:16 | Observation (INO) | payer BC ==
--- NOTE | 2025-01-14 08:31 | DVH ---
CLINICAL HISTORY: Gestational diabetes. COMPARISON: US BIOPHYSICAL PROFILE on DOS: 01/10/25, US BIOPHYSICAL PROFILE on DOS: 01/07/25, US BIOPHYSI EDDI PROFILE on DOS: 01/03/25 TECHNIQUE: biophysical profile was performed. Transabdominal sonographic images of the fetus we re obtained. FINDINGS: The fetus is in cephalic position. heart rate measures 147 BPM. Amniotic fluid index measures 18.4 cm. The placenta is posterior in position without evidence of previa or abruption. BPP profile is an overall score of 8/8, with 2/2 points for breathing, with at least one episode of breathing over a 30 second duration during a 30 minute observation, 2/2 points for m ovements, with 3 or more discrete body or limb movements, 2/2 points for tone, with one or more episodes of extremity extension with return to flexion, or opening and closing of hand, and 2/ 2 points for amniotic fluid, with at least 1 pocket of amniotic fluid that measures 2 cm in 2 perpend icular planes. IMPRESSION: BPP score of 8/8.
[2025-01-14 09:33] LABS: Protein, Urine 16.9 mg/dL (1-14)
[2025-01-14 09:36] LABS: Creatinine, Urine 52.3 mg/dL (30.0-125.0); Urine Protein/Creatinine Ratio 0.32
[2025-01-14 09:46] LABS: Basophils # (auto) 0 10 ^3/uL (0-0.2); Basophils % (auto) 0.5 % (0.0-2.0); Eosinophils # (auto) 0.3 10 ^3/uL (0-0.8); Eosinophils % (auto) 2.6 % (0.0-7.0); Hematocrit 29.1 % (36.0-46.0); Lymphocytes # (auto) 2.4 10 ^3/uL (0.4-5.4); Lymphocytes % (auto) 24.1 % (10.0-50.0); Mean Corpuscular Hemoglobin 20.4 pg (28.0-32.0); Mean Corpuscular Hgb Conc. 30.8 g/dL (32.0-36.0); Mean Corpuscular Volume 66.3 fL (80.0-100.0); Monocytes # (auto) 0.8 10 ^3/uL (0-1.3); Monocytes % (auto) 7.8 % (0.0-12.0); Neutrophils # (auto) 6.6 10 ^3/uL (1.6-8.6); Nucleated Red Blood Cells % 0.5 %; Platelet Count (auto) 310 10^3/uL (140-450); Red Blood Cells 4.39 10^6/uL (4.0-5.20); Red Cell Distribution Width 21.7 % (11.8-14.3); White Blood Cell 10.1 10^3/uL (4.4-10.8)
[2025-01-14 09:52] LABS: INR 0.92 (0.9-1.15); Partial Thromboplastin Time 26.2 SEC (24.5-34.5); Prothrombin Time 9.8 sec (9.3-11.8)
[2025-01-14 10:23] LABS: Albumin 3.5 g/dL (3.2-4.8); Anion Gap 13 (5-15); Aspartate Aminotransferase 19 U/L (13-40); BUN/Creatinine Ratio 12.1 (10.0-20.0); Calcium 9.2 mg/dL (8.7-10.4); Glucose 76 mg/dL (74-106); Potassium 3.9 mmol/L (3.5-5.1); Sodium 145 mmol/L (136-145); Total Protein 5.9 g/dL (5.7-8.2)
[2025-01-14 10:24] LABS: Alanine Aminotransferase 9 U/L (7-40); Alkaline Phosphatase 196 U/L (46-116); Bilirubin, Total 0.3 mg/dL (0.2-1.0); Blood Urea Nitrogen 7 mg/dL (9-23); Carbon Dioxide 19 mmol/L (20-31); Chloride 113 mmol/L (98-107)
[2025-01-14 10:33] LABS: Uric Acid 4.3 mg/dL (3.1-7.8)
--- NOTE | 2025-01-14 23:16 | DVHDS2 ---
Discharge Summary Date of Admission Jan 14, 2025 at 08:01 Date of Discharge: Jan 14, 2025 Admitting Diagnosis GDM A2 [facility] 3727 Labs/Diagnostic Data: Laboratory Results Test 01/14/25 09:26 01/14/25 08:44 01/14/25 08:37 White Blood Count 10.1 10^3/uL (4.4-10.8) Red Blood Count 4.39 10^6/uL (4.0-5.20) Hemoglobin 9.0 g/dL (12.2-16.2) Hematocrit 29.1 % (36.0-46.0) Mean Corpuscular Volume 66.3 fL (80.0-100.0) Mean Corpuscular Hemoglobin 20.4 pg (28.0-32.0) Mean Corpuscular Hemoglobin Concent 30.8 g/dL (32.0-36.0) Red Cell Distribution Width 21.7 % (11.8-14.3) Platelet Count 310 10^3/uL (140-450) Mean Platelet Volume 8.2 fL (6.9-10.8) Neutrophils (%) (Auto) 65.0 % (37.0-80.0) Lymphocytes (%) (Auto) 24.1 % (10.0-50.0) Monocytes (%) (Auto) 7.8 % (0.0-12.0) Eosinophils (%) (Auto) 2.6 % (0.0-7.0) Basophils (%) (Auto) 0.5 % (0.0-2.0) Neutrophils # (Auto) 6.6 10 ^3/uL (1.6-8.6) Lymphocytes # (Auto) 2.4 10 ^3/uL (0.4-5.4) Monocytes # (Auto) 0.8 10 ^3/uL (0-1.3) Eosinophils # (Auto) 0.3 10 ^3/uL (0-0.8) Basophils # (Auto) 0 10 ^3/uL (0-0.2) Nucleated Red Blood Cells 0.5 % Prothrombin Time 9.8 sec (9.3-11.8) Prothrombin Time INR 0.92 (0.9-1.15) Activated Partial Thromboplast Time 26.2 SEC (24.5-34.5) Sodium Level 145 mmol/L (136-145) Potassium Level 3.9 mmol/L (3.5-5.1) Chloride Level 113 mmol/L (98-107) Carbon Dioxide Level 19 mmol/L (20-31) Anion Gap 13 (5-15) Blood Urea Nitrogen 7 mg/dL (9-23) Creatinine 0.58 mg/dL (0.550-1.02) Glomerular Filtration Rate Calc 127 mL/min (>90) BUN/Creatinine Ratio 12.1 (10.0-20.0) Serum Glucose 76 mg/dL (74-106) Uric Acid 4.3 mg/dL (3.1-7.8) Calcium Level 9.2 mg/dL (8.7-10.4) Total Bilirubin 0.3 mg/dL (0.2-1.0) Aspartate Amino Transferase (AST) 19 U/L (13-40) Alanine Aminotransferase (ALT) 9 U/L (7-40) Alkaline Phosphatase 196 U/L (46-116) Total Protein 5.9 g/dL (5.7-8.2) Albumin 3.5 g/dL (3.2-4.8) Urine Creatinine 52.30 mg/dL (30.0-125.0) Urine Protein/Creatinine Ratio 0.32 Urine Total Protein 16.9 mg/dL (1-14) POC Glucose 78 mg/dl (70-106) Other Laboratory Tests 01/14/25 09:26 Brief Hx & Hospital Course: Patient for routine monitoring Operations or Procedures None Condition at Discharge: Good Final Diagnosis/Problems List NST performed ultrasound ensure GDM A2 37 2 weeks Discharge Disposition: Home Discharge Instruct/Medications Diet: Consistent carbohydrate Activity: Light activity Activity comment: Kick counts labor precautions Discharge Statement: "Patient was advised to return to the ER or call 911 if any headaches, dizziness, shortness of breath, chest pain, abdominal pain, bleeding, fevers, or worsening of medical condition. Patient was counseled about treatment plan, medications, possible side effects, patientverbalized understanding. All questions were answered to the best of my ability. This discharge took greater then 30 minutes in planning, reviewing documentation, counseling the patient, and discussing with other team members." ASSESSMENT ASSESSMENT Assessment Visit Coding OBGYN Date of Service: Jan 14, 2025 Billing Provider: JOSELIN COLÓN DO YOUTH ASSOCIATE Common Visit Codes: 92234-EWW/OBS SAME DATE (LOW), 08848-XMF/OBS SAME DATE (MOD), 40237-GXV/OBS SAME DATE (HIGH) YOUTH ASSOCIATE Procedure Codes: 37704-23- NON-STRESS TEST JOSELIN COLÓN DO Jan 14, 2025 23:16
== END 2025-01-14 10:57 | disposition home or self-care (01) ==
LOC: UNDOADMOB 07:53 → LDRP 07:53
PROVIDERS: ADMIT Obstetrics & Gynecology; ATTEND Obstetrics & Gynecology
DX: O13.3 Gestational [pregnancy-induced] hypertension without significant proteinuria, third trimester (principal); O24.419 Gestational diabetes mellitus in pregnancy, unspecified control; Z3A.37 37 weeks gestation of pregnancy; Z79.899 Other long term (current) drug therapy; Z98.890 Other specified postprocedural states
CPT/HCPCS: 36415; 76818; 80053; 81002; 82570; 82948; 82962; 84156; 84550; 85025; 85610; 85730; 94760; G0378; 76819

== ENCOUNTER 2025-01-17 06:49 | Observation (INO) | payer BC ==
[2025-01-17 11:44] LABS: Basophils # (auto) 0.1 10 ^3/uL (0-0.2); Eosinophils # (auto) 0.2 10 ^3/uL (0-0.8); Hemoglobin 9.2 g/dL (12.2-16.2); Lymphocytes # (auto) 2.5 10 ^3/uL (0.4-5.4); Lymphocytes % (auto) 21.7 % (10.0-50.0); Mean Corpuscular Hemoglobin 20.2 pg (28.0-32.0); Mean Corpuscular Hgb Conc. 30.6 g/dL (32.0-36.0); Mean Corpuscular Volume 66.2 fL (80.0-100.0); Monocytes # (auto) 0.7 10 ^3/uL (0-1.3); Monocytes % (auto) 6.5 % (0.0-12.0); Neutrophils # (auto) 7.9 10 ^3/uL (1.6-8.6); Neutrophils % (auto) 68.8 % (37.0-80.0); Nucleated Red Blood Cells % 0.7 %; Platelet Count (auto) 340 10^3/uL (140-450); Red Blood Cells 4.53 10^6/uL (4.0-5.20); Red Cell Distribution Width 21.8 % (11.8-14.3); White Blood Cell 11.5 10^3/uL (4.4-10.8)
[2025-01-17 11:54] LABS: INR 0.9 (0.9-1.15); Partial Thromboplastin Time 24.8 SEC (24.5-34.5); Prothrombin Time 9.6 sec (9.3-11.8)
[2025-01-17 12:03] LABS: Alanine Aminotransferase 11 U/L (7-40); Albumin 3.8 g/dL (3.2-4.8); Anion Gap 11 (5-15); Aspartate Aminotransferase 20 U/L (0-34); Bilirubin, Total 0.3 mg/dL (0.2-1.0); Calcium 9.1 mg/dL (8.7-10.4); Glucose 93 mg/dL (74-106); Potassium 3.9 mmol/L (3.5-5.1); Sodium 140 mmol/L (136-145); Total Protein 6.3 g/dL (5.7-8.2); Uric Acid 3.6 mg/dL (3.1-7.8)
[2025-01-17 12:06] LABS: Alkaline Phosphatase 216 U/L (46-116); Blood Urea Nitrogen 5 mg/dL (9-23); Carbon Dioxide 18 mmol/L (20-31); Chloride 111 mmol/L (98-107)
[2025-01-17 12:15] LABS: Urine Bacteria None Seen /hpf (None Seen)
[2025-01-17 12:25] LABS: Urine Blood Negative /uL (Negative); Urine Clarity Clear (Clear); Urine Color Light-Yellow (Yellow); Urine Protein, UAD Negative (Negative); Urine Specific Gravity 1.011 (1.001-1.035); Urine Squamous Epithelial Cell FEW /hpf (<5); Urine Urobilinogen Normal (Negative); Urine WBC 1 /HPF (0-5); Urine pH 6.5 (5.0-9.0)
--- NOTE | 2025-01-17 12:51 | DVH ---
BIOPHYSICAL PROFILE HISTORY: GDMA2/R/O PIH TECHNIQUE: Multiple transabdominal real-time grayscale sonographic images through the gravid uterus of the fetus with duplex Doppler color flow and M-mode spectral analysis FINDINGS: BIOPHYSICAL PROFILE: breathing score: 2 movement score: 2 tone score: 2 Quantitative JORGE score: 2 (JORGE: 15.2 Cm.) Total score: 8 The cervix was not seen Single live fetus in cephalic presentation. heart rate 148 beats per minute. Grade II fundal placenta without previa or abruption IMPRESSION: Biophysical profile score: 8/8
[2025-01-17 15:06] LABS: Protein, Urine 10.2 mg/dL (1-14)
[2025-01-17 15:06] LABS: Protein, Urine 13.6 mg/dL (1-14)
[2025-01-17 15:09] LABS: Creatinine, Urine 41.76 mg/dL (30.0-125.0); Urine Protein/Creatinine Ratio 0.33
--- NOTE | 2025-01-18 09:42 | DVHDS2 ---
Physician Discharge Progress N Final Diagnosis: 37wks [facility] Operations or Procedures: Operations or Procedures nst reactive reviwed,sono,labs Condition on Discharge: Good Disposition: Home Discharge Instructions: Diet: Consistent carbohydrate Activity: No Restrictions, As Tolerated Medications: na Follow Up Care: Specialist: induction mon Discharge Statement: "Patient was advised to return to the ER or call 911 if any headaches, dizziness, shortness of breath, chest pain, abdominal pain, bleeding, fevers, or worsening of medical condition. Patient was counseled about treatment plan, medications, possible side effects, patientverbalized understanding. All questions were answered to the best of my ability. This discharge took greater then 30 minutes in planning, reviewing documentation, counseling the patient, and discussing with other team members." Visit Coding OBGYN Date of Service: Jan 17, 2025 Billing Provider: FARHAT MALHOTRA DO JET OPERATOR Common Visit Codes: [id number] OBS CARE (HIGH) JET OPERATOR Procedure Codes: 16173-48- NON-STRESS TEST FARHAT MALHOTRA DO Jan 18, 2025 09:42
== END 2025-01-17 13:42 | disposition home or self-care (01) ==
LOC: LDRP 11:12 → UNDOADMOB 11:12 → LDRP 11:17 → UNDODISOB 13:42
PROVIDERS: ADMIT Obstetrics & Gynecology; ATTEND Obstetrics & Gynecology
DX: O13.3 Gestational [pregnancy-induced] hypertension without significant proteinuria, third trimester (principal); O24.419 Gestational diabetes mellitus in pregnancy, unspecified control; Z3A.37 37 weeks gestation of pregnancy; Z79.899 Other long term (current) drug therapy; Z98.890 Other specified postprocedural states
CPT/HCPCS: 36415; 76818; 80053; 81001; 81002; 82570; 82948; 82962; 84156; 84550; 85025; 85610; 85730; 94760; G0378; 59025; 76819

== ENCOUNTER 2025-01-21 06:19 | Inpatient (IN) | payer BC ==
[~2025-01-21] VITALS: Ht 160 cm; Wt 82.6 kg
[2025-01-21] MEDS ORDERED: LIDOCAINE 2%HCL (LOCAL ANESTH.) INJ 20ML MDV IJ PRN (08:15)
[2025-01-21] MEDS ORDERED: NALBUPHINE HCL 10 MG/1ml INJECTION IV PRN (08:15)
[2025-01-21 08:33] LABS: Urine Bacteria FEW /hpf (None Seen); Urine Blood Negative /uL (Negative); Urine Clarity Clear (Clear); Urine Color Light-Yellow (Yellow); Urine Mucus FEW (None Seen); Urine Protein, UAD Negative (Negative); Urine Specific Gravity 1.013 (1.001-1.035); Urine Squamous Epithelial Cell FEW /hpf (<5); Urine Urobilinogen Normal (Negative); Urine WBC 1 /HPF (0-5); Urine pH 6.5 (5.0-9.0)
[2025-01-21 08:34] LABS: Basophils # (auto) 0 10 ^3/uL (0-0.2); Basophils % (auto) 0.3 % (0.0-2.0); Hemoglobin 10.2 g/dL (12.2-16.2); Lymphocytes # (auto) 3.3 10 ^3/uL (0.4-5.4); Lymphocytes % (auto) 26.4 % (10.0-50.0); Monocytes # (auto) 0.9 10 ^3/uL (0-1.3); Nucleated Red Blood Cells % 0.7 %
[2025-01-21 08:35] LABS: Eosinophils # (auto) 0.3 10 ^3/uL (0-0.8); Hematocrit 33.1 % (36.0-46.0); Mean Corpuscular Hemoglobin 20.5 pg (28.0-32.0); Mean Corpuscular Hgb Conc. 30.9 g/dL (32.0-36.0); Mean Corpuscular Volume 66.2 fL (80.0-100.0); Monocytes % (auto) 7.2 % (0.0-12.0); Neutrophils % (auto) 64.1 % (37.0-80.0); Platelet Count (auto) 387 10^3/uL (140-450); Red Blood Cells 5.01 10^6/uL (4.0-5.20); White Blood Cell 12.5 10^3/uL (4.4-10.8)
[2025-01-21 08:43] LABS: INR 0.89 (0.9-1.15); Partial Thromboplastin Time 23.9 SEC (24.5-34.5); Prothrombin Time 9.5 sec (9.3-11.8)
[2025-01-21 08:47] LABS: Alanine Aminotransferase 13 U/L (7-40); Carbon Dioxide 21 mmol/L (20-31); Potassium 3.9 mmol/L (3.5-5.1)
[2025-01-21 08:48] LABS: Albumin 4.2 g/dL (3.2-4.8); Anion Gap 11 (5-15); Aspartate Aminotransferase 17 U/L (<34); BUN/Creatinine Ratio 11.1 (10.0-20.0); Bilirubin, Total 0.3 mg/dL (0.2-1.0); Sodium 140 mmol/L (136-145); Total Protein 6.9 g/dL (5.7-8.2)
[2025-01-21 08:53] LABS: Alkaline Phosphatase 248 U/L (46-116); Blood Urea Nitrogen 7 mg/dL (9-23); Chloride 108 mmol/L (98-107); Glucose 139 mg/dL (74-106)
[2025-01-21 09:06] LABS: Anisocytosis Slight; Giant Platelets Few; Hypochromia Marked; Large Platelets FEW; Platelet Estimate Adequate
[2025-01-21 09:10] LABS: Amphetamine Screen, Urine Neg (NEGATIVE); Barbiturate Scree,Urine Neg (NEGATIVE); Benzodiazephine Screen, Urine Neg (NEGATIVE); Cannabinoid Screen, Urine Neg (NEGATIVE); Cocaine Screen, Urine Neg (NEGATIVE); Opiate Scree,Urine Neg (NEGATIVE); Phencyclidine Screen, Urine Neg (NEGATIVE)
[2025-01-21] MEDS: miSOPROStol 50 MCG per PRE-CUT 1/2 TAB PO PRN (10:31)
[2025-01-21] MEDS: LACTATED RINGER'S 1,000 ML IV SCH (10:32)
[2025-01-21] MEDS: LACT. RINGERS/OXYTOCIN 20UNITS 500 ML IV ONE ×2 (11:30→12:00)
--- NOTE | 2025-01-21 12:51 | DVH ---
LIMITED OB ULTRASOUND > 14 WKS: HISTORY: presenattion TECHNIQUE: Multiple real-time grayscale images of the gravid uterus with duplex Doppler color flow an d M-mode spectral analysis. TRANSDUCER: Transabdominal FINDINGS: JORGE equals 14.6 cm. Posterior placenta. heart rate 148 beats per minute. Cervix is closed radha suring 3.4 cm. Cephalic presentation. IMPRESSION: Current JORGE equals 14.6 cm. Cephalic presentation.
[2025-01-21 15:27] LABS: Protein, Urine 11.9 mg/dL (1-14)
[2025-01-21 15:30] LABS: Creatinine, Urine 70.12 mg/dL (30.0-125.0); Urine Protein/Creatinine Ratio 0.17
[2025-01-21] MEDS: ACCU-CHEK COMFORT CURVE STRIP VI SCH (18:00)
[2025-01-21] MEDS: PHISODERM TOP SOLN 240ML BTL TOP PRN (19:09)
[2025-01-21] MEDS: WITCH HAZEL-GLYCERIN PAD TOP PRN (19:09)
[2025-01-21] MEDS: DERMOPLAST 60ML BOTTLE TOP PRN (19:09)
[2025-01-21] MEDS: metFORMIN HYDROCHLORIDE 500 MG TAB PO ONE (21:23)
--- NOTE | 2025-01-21 22:24 | DVHHP2 ---
OB CC & HPI Patient Identification: : 1 Para: 0 EGA: 38 09/14 Chief Complaints: Reason for admission: active labor Admission Nurse Assessment Rev: Yes History of Present Complaints Early care Past Medical History Cardiac: No pertinent Hx Pulmonary: No pertinent Hx Central Nervous System: No pertinent Hx GI: No pertinent Hx Hemotology/Oncology: No pertinent Hx Hepatobiliary: No pertinent Hx Psychiatric: No pertinent Hx Musculoskeletal: No pertinent Hx Rheumotologic: No pertinent Hx Infectious Disease: No peritnent Hx ENT: No pertinent Hx Renal/: No pertinent Hx Endocrine: No pertinent Hx Dermatology: No pertinent Hx OB History OB History Care: Good Care Ultrasounds: Normal mid trimester US Obstetrical Complications: None Medical Complications: None Allergies: Coded Allergies: No Known Drug Allergy (Verified Allergy, Unknown, 12/19/20) Home Meds Active Scripts Oseltamivir Phosphate (Tamiflu) 75 Mg Cap, 1 CAP PO BID for 5 Days, #10 CAP 0 Refills Prov:ELIUD SHOEMAKER 08/21/24 Acetaminophen (Acetaminophen) 500 Mg Tab, 500 MG PO Q4HPRN, #30 TAB 0 Refills Prov:ELIUD SHOEMAKER 08/21/24 Ondansetron HCl (Ondansetron) 4 Mg Tab, 4 MG PO TID for 4 Days, #12 TAB Prov:CHRISTIANO SANCHES RESIDENT 04/17/24 Ondansetron Odt 4MG Tab (ZOFRAN PO) 4 Mg Tb, 4 MG PO Q6HP PRN, #15 TAB ODT TAB-DISSOLVE IN MOUTH, THEN SWALLOW Prov:ARMEN NEVAREZ PAC 05/02/23 Meclizine HCl (Meclizine 25) 25 Mg Tab, 25 MG PO Q8HP PRN, #15 TAB Prov:ARMEN NEVAREZ PAC 05/02/23 Reported Medications Insulin Glargine-Yfgn (Insulin Glargine) 100 Unit/Ml Inj, 28 UNIT SC, INJ 01/03/25 Metformin Hydrochloride (Metformin Hcl) 500 Mg Tab, 1000 MG PO DAILY for 30 Days, MG 01/03/25 Insulin Glargine (Lantus) 100 Unit/Ml Inj, 22 UNIT SC, INJ 12/13/24 Metformin Hydrochloride (Metformin Hcl) 500 Mg Tab, 500 MG PO DAILY for 30 Days, MG 12/13/24 Vit W/ Ferrous Fumara ( One Daily) Daily Tab, 1 TAB PO DAILY, #90 TAB 3 Refills 11/30/24 Current Medications Current Medications Medications (Trade) Dose Ordered Sig/Oswaldo Route PRN Reason Start Time Stop Time Status Last Admin Lactated Ringer's 1,000 ml @ 125 mls/hr Q8H IV 01/21/25 08:15 01/21/25 10:32 Nalbuphine HCl (Nubain) 10 mg Q4HP PRN IV MODERATE PAIN (4-6 PAIN SCALE) 01/21/25 08:15 Diagnostic Test (Pha) (Accu-Chek Comfort Curve T) 1 strip Q4HR 01/21/25 11:00 Witch Raquel (Tucks) 1 pad PRN PRN TOP PERINEAL AREA DISCOMFORT 01/21/25 08:15 01/21/25 19:09 Sodium Lauryl Sulfate (Phisoderm) 240 ml PRN PRN TOP PERINEAL AREA DISCOMFORT 01/21/25 08:15 01/21/25 19:09 Benzocaine (Dermoplast) 1 applic PRN PRN TOP PERINEAL AREA DISCOMFORT 01/21/25 08:15 01/21/25 19:09 Lidocaine HCl (Xylocaine) 20 ml ONCE PRN IJ PERINEAL AREA DISCOMFORT 01/21/25 08:15 Misoprostol (Cytotec) 50 mcg Q4HPRN PRN PO CERVICAL RIPENING 01/21/25 10:15 01/21/25 22:15 Ondansetron HCl (Zofran) 4 mg Q4HPRN PRN IV NAUSEA / VOMITING 01/21/25 11:30 Dextrose/Lactated Ringer's 1,000 ml @ 125 mls/hr Q8H IV 01/21/25 15:30 Metformin HCl (Glucophage) 500 mg BIDWM PO 01/22/25 08:00 Family & Social History Family/Social History Past Family/Social History: Noncontributory Blood Type: O+ Rubella: immune RPR/VDRL: Negative GBS Status: Negative HBsAG: Negative Review of Systems Constitutional: No symptom reported Ears, Nose, & Throat: No symptom reported Eyes: No symptom reported Pulmonary/Respiratory: No symptom reported Cardiovascular: No symptom reported Gastrointestinal: No symptom reported Genitourinary: No symptom reported Musculoskeletal: No symptom reported Skin: No symptom reported Psychiatric: No symptom reported Endocrine: No symptom reported Hemotologic/Lymphatic: No symptom reported OB Admission Exam Physical Exam Cervical Dilatation: 2cm Effacement: 25% Station: -3 Membranes: Intact Contractions on Admission: None Intensity: Mild OB Plan Plan Admitting Diagnosis: 32 2/7 weeks active labor Plan: Expectant Management Other Plan: Cytotec induction JOSELIN COLÓN DO Jan 21, 2025 22:24
[2025-01-21] MEDS: D5W/LACTATED RINGERS 1,000 ML IV SCH (23:30)
[2025-01-22] MEDS: NALOXONE HCL 0.4 MG/ML VIAL IV ONE (02:45)
[2025-01-22] MEDS: ePHEDrine SULFATE 50 MG/ML AMP IV ONE (02:45)
[2025-01-22] MEDS: LACTATED RINGER'S 500 ML IV ONE (02:45)
[2025-01-22] MEDS ORDERED: TERBUTALINE SULFATE 1 MG/ML 1ML VIAL SC PRN (04:00)
[2025-01-22] MEDS: ONDANSETRON HCL 4 MG/2 ML VIAL IV PRN (04:34)
[2025-01-22] MEDS: LACT. RINGERS/OXYTOCIN 20UNITS 1,000 ML IV SCH (05:31)
--- NOTE | 2025-01-22 05:31 | LDN2 ---
Labor and Delivery Note Date 01/22/25 Age 29 3 Para 1 AB 1 EDC 02/03/2025 EGA 38+ Diagnosis Labor Vaginal Delivery: VTX Vacuum Assisted: No Placenta: Spontaneous Sex: Male Weight 7lbs 10 oz Apgars 8/9 Nuchal Cord Transected: No Amniotic Fluid: Clear Anesthesia Epidural [place] TOWEL INSPECTOR EBL 300cc Labs Laboratory Tests 06/21/24 09:15: Hepatitis B Surface Antigen Negative, HIV (1&2) Antibody Negative, Rubella Antibody Positive Blood Bank 01/21/25 08:15: Blood Type O POSITIVE Complications none Conditions Good Hand Developer none present Visit Coding OBGYN Date of Service: Jan 22, 2025 Billing Provider: JOSELIN COLÓN DO MIS MANAGER Common Visit Codes: [id number] OBS CARE (HIGH) JOSELIN COLÓN DO Jan 22, 2025 05:31
--- NOTE | 2025-01-22 05:40 | DVHPN2 ---
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) Nursing reports: No new complaints, No abdominal pain, No chest pain, No dizziness, No cough Objective Medications Current Medications Medications (Trade) Dose Ordered Sig/Oswaldo Route PRN Reason Start Time Stop Time Status Last Admin Benzocaine (Dermoplast) 1 applic PRN PRN TOP PERINEAL AREA DISCOMFORT 01/21/25 08:15 01/21/25 19:09 Dextrose/Lactated Ringer's 1,000 ml @ 125 mls/hr Q8H IV 01/21/25 15:30 Diagnostic Test (Pha) (Accu-Chek Comfort Curve T) 1 strip Q4HR 01/21/25 11:00 01/21/25 18:00 Lactated Ringer's 1,000 ml @ 125 mls/hr Q8H IV 01/21/25 08:15 01/22/25 00:15 Lidocaine HCl (Xylocaine) 20 ml ONCE PRN IJ PERINEAL AREA DISCOMFORT 01/21/25 08:15 Metformin HCl (Glucophage) 500 mg BIDWM PO 01/22/25 08:00 Misoprostol (Cytotec) 50 mcg Q4HPRN PRN PO CERVICAL RIPENING 01/21/25 10:15 01/21/25 22:15 Nalbuphine HCl (Nubain) 10 mg Q4HP PRN IV MODERATE PAIN (4-6 PAIN SCALE) 01/21/25 08:15 Ondansetron HCl (Zofran) 4 mg Q4HPRN PRN IV NAUSEA / VOMITING 01/21/25 11:30 01/22/25 04:34 Oxytocin 1,000 ml @ 6 ml/hr Q24H IV 01/22/25 04:00 01/22/25 05:31 Sodium Lauryl Sulfate (Phisoderm) 240 ml PRN PRN TOP PERINEAL AREA DISCOMFORT 01/21/25 08:15 01/21/25 19:09 Terbutaline Sulfate (Brethine Inj) 0.25 mg ONCE PRN SC Uterine tachysystole 01/22/25 04:00 Witch Raquel (Tucks) 1 pad PRN PRN TOP PERINEAL AREA DISCOMFORT 01/21/25 08:15 01/21/25 19:09 General: Normal Lungs: Normal Cardiovascular: Normal Abdominal: Normal Extremities: Normal Skin: Normal Neurological: Normal Studies Laboratory Tests 01/21/25 08:18 01/21/25 08:15 Test 01/21/25 08:15 Range/Units Serum Glucose 139 H 74-106 mg/dL Ass/Plan Assessment Hospital Day 2 induction.... 4cm / 65%/-1 station Pitocin running Plan Will hand off care to Dr Cleveland anticipate AROM and expectant delivery. JOSELIN COLÓN DO Jan 22, 2025 05:40
[2025-01-22] MEDS: ROPIVACAINE HCL 200 ML ONE ×3 (05:56→18:06)
[2025-01-22] MEDS ORDERED: metFORMIN HYDROCHLORIDE 500 MG TAB PO SCH (08:00)
--- NOTE | 2025-01-22 08:26 | DVHPN2 ---
CNM Labor Progress Note Date and Time Seen Date Seen: Jan 22, 2025 Time Seen: 08:00 Subjective Patient reports: No new complaints Subjective Comment Pt resting comfortably in bed, denies pain or pressure. Objective Vital Signs VSS, see chart Monitoring Method Monitoring Method: External Heart Rate Heart Rate Baseline: 125 Heart Rate Variability: Moderate Presence of FHR Accelerations: Yes Presence of FHR Decelerations: No Are all 5 Components of the FH: Yes Contractions Contractions Frequency: Other (Q2-4 min) Duration of Contraction: 80 Contractions Intensity: Moderate Contractions Resting Tone: Relaxed Membranes Membranes: Intact Vaginal Exam Vag Exam Deferred: No Vaginal Exam Dilation: 3 Vaginal Exam Effacement: 70 Vaginal Exam Station: -3 Vaginal Exam Presentation: VTX Vaginal Exam Show: None Medications Medications - Pitocin: Yes (8 munits) Medication - Epidural: Yes Medication - Other s/p Metformin and 2 doses of Cytotec Lab Results Lab Results Current Medications Medications (Trade) Dose Ordered Sig/Oswaldo Start Time Stop Time Status Last Admin Dose Admin Lactated Ringer's 1,000 ml @ 125 mls/hr Q8H 01/21/25 08:15 01/22/25 00:15 125 MLS/HR Nalbuphine HCl (Nubain) 10 mg Q4HP PRN 01/21/25 08:15 Diagnostic Test (Pha) (Accu-Chek Comfort Curve T) 1 strip Q4HR 01/21/25 11:00 01/22/25 06:14 1 STRIP Witch Raquel (Tucks) 1 pad PRN PRN 01/21/25 08:15 01/21/25 19:09 1 PAD Sodium Lauryl Sulfate (Phisoderm) 240 ml PRN PRN 01/21/25 08:15 01/21/25 19:09 240 ML Benzocaine (Dermoplast) 1 applic PRN PRN 01/21/25 08:15 01/21/25 19:09 1 APPLIC Lidocaine HCl (Xylocaine) 20 ml ONCE PRN 01/21/25 08:15 Misoprostol (Cytotec) 50 mcg Q4HPRN PRN 01/21/25 10:15 01/21/25 22:15 50 MCG Ondansetron HCl (Zofran) 4 mg Q4HPRN PRN 01/21/25 11:30 01/22/25 04:34 4 MG Oxytocin 500 ml @ 999 mls/hr Q31M ONCE 01/21/25 11:30 01/21/25 12:00 DC Oxytocin 500 ml @ 125 mls/hr Q4H ONCE 01/21/25 12:00 01/21/25 15:59 DC Dextrose/Lactated Ringer's 1,000 ml @ 125 mls/hr Q8H 01/21/25 15:30 Metformin HCl (Glucophage) 500 mg BIDWM 01/22/25 08:00 Metformin HCl (Glucophage) 500 mg ONCE ONCE 01/21/25 20:45 01/21/25 20:46 DC 01/21/25 21:23 500 MG Naloxone HCl (Narcan) 0.2 mg PRN ONCE 01/22/25 02:45 01/22/25 02:46 DC Ephedrine Sulfate (ePHEDrine SULFATE) 10 mg PRN ONCE 01/22/25 02:45 01/22/25 02:46 DC Lactated Ringer's 500 ml @ 500 mls/hr Q1H ONCE 01/22/25 02:45 01/22/25 03:44 DC 01/22/25 02:45 500 MLS/HR Oxytocin 1,000 ml @ 6 ml/hr Q24H 01/22/25 04:00 01/22/25 05:31 6 ML/HR Terbutaline Sulfate (Brethine Inj) 0.25 mg ONCE PRN 01/22/25 04:00 Laboratory Tests Test 01/22/25 07:00 01/21/25 15:00 01/21/25 08:18 01/21/25 08:15 Range/Units POC Glucose 82 70-106 mg/dl Urine Creatinine 70.12 30.0-125.0 mg/dL Urine Protein/Creatinine Ratio 0.17 Urine Total Protein 11.9 1-14 mg/dL White Blood Count 12.5 H 4.4-10.8 10^3/uL Red Blood Count 5.01 4.0-5.20 10^6/uL Hemoglobin 10.2 L 12.2-16.2 g/dL Hematocrit 33.1 #L 36.0-46.0 % Mean Corpuscular Volume 66.2 L 80.0-100.0 fL Mean Corpuscular Hemoglobin 20.5 L 28.0-32.0 pg Mean Corpuscular Hemoglobin Concent 30.9 L 32.0-36.0 g/dL Red Cell Distribution Width 22.0 H 11.8-14.3 % Platelet Count 387 140-450 10^3/uL Mean Platelet Volume 8.3 6.9-10.8 fL Neutrophils (%) (Auto) 64.1 37.0-80.0 % Lymphocytes (%) (Auto) 26.4 10.0-50.0 % Monocytes (%) (Auto) 7.2 0.0-12.0 % Eosinophils (%) (Auto) 2.0 0.0-7.0 % Basophils (%) (Auto) 0.3 0.0-2.0 % Neutrophils # (Auto) 8.0 1.6-8.6 10 ^3/uL Lymphocytes # (Auto) 3.3 0.4-5.4 10 ^3/uL Monocytes # (Auto) 0.9 0-1.3 10 ^3/uL Eosinophils # (Auto) 0.3 0-0.8 10 ^3/uL Basophils # (Auto) 0 0-0.2 10 ^3/uL Nucleated Red Blood Cells 0.7 % Platelet Estimate Adequate Large Platelets Few Giant Platelets Few Hypochromasia (manual) Marked Anisocytosis (manual) Slight Microcytosis Marked Prothrombin Time 9.5 9.3-11.8 sec Prothrombin Time INR 0.89 L 0.9-1.15 Activated Partial Thromboplast Time 23.9 L 24.5-34.5 SEC Urine Color Light-yellow Yellow Urine Clarity Clear Clear Urine pH 6.5 5.0-9.0 Urine Specific [place] 1.013 1.001-1.035 Urine Protein Negative Negative Urine Ketones Negative Negative Urine Blood Negative Negative /uL Urine Nitrite Negative Negative Urine Bilirubin Negative Negative Urine Urobilinogen Normal Negative mg/dL Urine Leukocyte Esterase Negative Negative /uL Urine RBC 1 0 - 4 /hpf Urine Microscopic WBC 1 0-5 /HPF Urine Squamous Epithelial Cells Few <5 /hpf Urine Bacteria Few H None Seen /hpf Urine Mucus Few None Seen Urine Glucose Normal Normal mg/dL Sodium Level 140 136-145 mmol/L Potassium Level 3.9 3.5-5.1 mmol/L Chloride Level 108 H 98-107 mmol/L Carbon Dioxide Level 21 20-31 mmol/L Anion Gap 11 5-15 Blood Urea Nitrogen 7 L 9-23 mg/dL Creatinine 0.63 0.550-1.02 mg/dL Glomerular Filtration Rate Calc 125 >90 mL/min BUN/Creatinine Ratio 11.1 10.0-20.0 Serum Glucose 139 H 74-106 mg/dL Uric Acid 3.4 3.1-7.8 mg/dL Calcium Level 11.0 H 8.7-10.4 mg/dL Total Bilirubin 0.3 0.2-1.0 mg/dL Aspartate Amino Transferase (AST) 17 <34 U/L Alanine Aminotransferase (ALT) 13 7-40 U/L Alkaline Phosphatase 248 H 46-116 U/L Total Protein 6.9 5.7-8.2 g/dL Albumin 4.2 3.2-4.8 g/dL Urine Opiates Screen Neg NEGATIVE Urine Fentanyl Screen Neg NEGATIVE Urine Barbiturates Screen Neg NEGATIVE Urine Phencyclidine Screen Neg NEGATIVE Urine Amphetamines Screen Neg NEGATIVE Urine Benzodiazepines Screen Neg NEGATIVE Urine Cocaine Screen Neg NEGATIVE Urine Cannabinoids Screen Neg NEGATIVE Treponema pallidum Antibody Non-reactive Negative Hepatitis C Antibody Negative Negative Assessment Assessment 29yo IUP @ 38.3 wks Induction of Labor GDM, A2 and Gestational HTN Category I EFM Intact Membranes GBS negative Plan Plan monitoring per order Pain mgmt, epidural in place Frequent position changes in bed encouraged Limit SVE unless necessary Intrauterine resuscitation PRN Anticipate TIFFANIE is co-managing care with Dr. [place]. Plan discussed with: Patient, Other (partner) Visit Coding OBGYN Date of Service: Jan 22, 2025 Billing Provider: DEANNA TAMEZ CNM BEHAVIOUR SUPPORT TEACHER Common Visit Codes: [id number] INP/OBS CARE(HIGH) SUBHASH KEY STUDENTMDW Jan 22, 2025 08:25
--- NOTE | 2025-01-22 12:17 | DVHPN2 ---
CNM Labor Progress Note Date and Time Seen Date Seen: Jan 22, 2025 Time Seen: 12:00 Subjective Patient reports: No new complaints Subjective Comment Pt resting comfortably in bed, denies pain or pressure Objective Vital Signs VSS, see chart Monitoring Method Monitoring Method: External Heart Rate Heart Rate Baseline: 125 Heart Rate Variability: Moderate Presence of FHR Accelerations: Yes Presence of FHR Decelerations: No Are all 5 Components of the FH: Yes Contractions Contractions Frequency: Other (Q 2-3 min) Duration of Contraction: 80 Contractions Intensity: Moderate Contractions Resting Tone: Relaxed Membranes Membranes: Intact Vaginal Exam Vag Exam Deferred: Yes Medications Medications - Pitocin: Yes (18 munits) Medication - Epidural: Yes Medication - Other s/p Cytotec x 2 doses Lab Results Lab Results Current Medications Medications (Trade) Dose Ordered Sig/Oswaldo Start Time Stop Time Status Last Admin Dose Admin Lactated Ringer's 1,000 ml @ 125 mls/hr Q8H 01/21/25 08:15 01/22/25 15:35 125 MLS/HR Nalbuphine HCl (Nubain) 10 mg Q4HP PRN 01/21/25 08:15 Diagnostic Test (Pha) (Accu-Chek Comfort Curve T) 1 strip Q4HR 01/21/25 11:00 01/22/25 06:14 1 STRIP Witch Raquel (Tucks) 1 pad PRN PRN 01/21/25 08:15 01/21/25 19:09 1 PAD Sodium Lauryl Sulfate (Phisoderm) 240 ml PRN PRN 01/21/25 08:15 01/21/25 19:09 240 ML Benzocaine (Dermoplast) 1 applic PRN PRN 01/21/25 08:15 01/21/25 19:09 1 APPLIC Lidocaine HCl (Xylocaine) 20 ml ONCE PRN 01/21/25 08:15 Misoprostol (Cytotec) 50 mcg Q4HPRN PRN 01/21/25 10:15 01/21/25 22:15 50 MCG Ondansetron HCl (Zofran) 4 mg Q4HPRN PRN 01/21/25 11:30 01/22/25 04:34 4 MG Oxytocin 500 ml @ 999 mls/hr Q31M ONCE 01/21/25 11:30 01/21/25 12:00 DC Oxytocin 500 ml @ 125 mls/hr Q4H ONCE 01/21/25 12:00 01/21/25 15:59 DC Dextrose/Lactated Ringer's 1,000 ml @ 125 mls/hr Q8H 01/21/25 15:30 Metformin HCl (Glucophage) 500 mg BIDWM 01/22/25 08:00 Metformin HCl (Glucophage) 500 mg ONCE ONCE 01/21/25 20:45 01/21/25 20:46 DC 01/21/25 21:23 500 MG Naloxone HCl (Narcan) 0.2 mg PRN ONCE 01/22/25 02:45 01/22/25 02:46 DC Ephedrine Sulfate (ePHEDrine SULFATE) 10 mg PRN ONCE 01/22/25 02:45 01/22/25 02:46 DC Lactated Ringer's 500 ml @ 500 mls/hr Q1H ONCE 01/22/25 02:45 01/22/25 03:44 DC 01/22/25 02:45 500 MLS/HR Oxytocin 1,000 ml @ 6 ml/hr Q24H 01/22/25 04:00 01/22/25 05:31 6 ML/HR Terbutaline Sulfate (Brethine Inj) 0.25 mg ONCE PRN 01/22/25 04:00 Calcium Carbonate (Tums) 1,000 mg ONCE ONCE 01/22/25 14:00 01/22/25 14:01 DC 01/22/25 14:02 1,000 MG Laboratory Tests Test 01/22/25 15:11 01/22/25 15:00 01/22/25 12:05 01/21/25 08:18 Range/Units White Blood Count 13.0 H 4.4-10.8 10^3/uL Red Blood Count 4.76 4.0-5.20 10^6/uL Hemoglobin 9.6 L 12.2-16.2 g/dL Hematocrit 31.5 L 36.0-46.0 % Mean Corpuscular Volume 66.2 L 80.0-100.0 fL Mean Corpuscular Hemoglobin 20.2 L 28.0-32.0 pg Mean Corpuscular Hemoglobin Concent 30.5 L 32.0-36.0 g/dL Red Cell Distribution Width 21.4 H 11.8-14.3 % Platelet Count 263 140-450 10^3/uL Mean Platelet Volume 8.7 6.9-10.8 fL Neutrophils (%) (Auto) 74.8 37.0-80.0 % Lymphocytes (%) (Auto) 18.6 10.0-50.0 % Monocytes (%) (Auto) 5.1 0.0-12.0 % Eosinophils (%) (Auto) 1.0 0.0-7.0 % Basophils (%) (Auto) 0.5 0.0-2.0 % Neutrophils # (Auto) 9.7 H 1.6-8.6 10 ^3/uL Lymphocytes # (Auto) 2.4 0.4-5.4 10 ^3/uL Monocytes # (Auto) 0.7 0-1.3 10 ^3/uL Eosinophils # (Auto) 0.1 0-0.8 10 ^3/uL Basophils # (Auto) 0.1 0-0.2 10 ^3/uL Nucleated Red Blood Cells 0.1 % Platelet Estimate Adequate Large Platelets Few Hypochromasia (manual) Marked Anisocytosis (manual) Slight Microcytosis Marked Prothrombin Time 9.8 9.3-11.8 sec Prothrombin Time INR 0.92 0.9-1.15 Activated Partial Thromboplast Time 23.1 L 24.5-34.5 SEC Sodium Level 141 136-145 mmol/L Potassium Level 3.7 3.5-5.1 mmol/L Chloride Level 109 H 98-107 mmol/L Carbon Dioxide Level 20 20-31 mmol/L Anion Gap 12 5-15 Blood Urea Nitrogen 7 L 9-23 mg/dL Creatinine 0.65 0.550-1.02 mg/dL Glomerular Filtration Rate Calc 124 >90 mL/min BUN/Creatinine Ratio 10.8 10.0-20.0 Serum Glucose 106 74-106 mg/dL Uric Acid 4.6 3.1-7.8 mg/dL Calcium Level 8.6 L 8.7-10.4 mg/dL Total Bilirubin 0.4 0.2-1.0 mg/dL Aspartate Amino Transferase (AST) 21 <34 U/L Alanine Aminotransferase (ALT) 10 7-40 U/L Alkaline Phosphatase 225 H 46-116 U/L Total Protein 5.9 5.7-8.2 g/dL Albumin 3.6 3.2-4.8 g/dL Urine Color Light-yellow Yellow Urine Clarity Clear Clear Urine pH 6.5 5.0-9.0 Urine Specific [place] 1.007 1.001-1.035 Urine Protein Negative Negative Urine Ketones Negative Negative Urine Blood 2+ H Negative /uL Urine Nitrite Negative Negative Urine Bilirubin Negative Negative Urine Urobilinogen Normal Negative mg/dL Urine Leukocyte Esterase Negative Negative /uL Urine RBC 2 0 - 4 /hpf Urine Microscopic WBC 2 0-5 /HPF Urine Squamous Epithelial Cells None seen <5 /hpf Urine Amorphous Crystals Few None Seen /hpf Urine Bacteria None seen None Seen /hpf Urine Creatinine 44.83 30.0-125.0 mg/dL Urine Protein/Creatinine Ratio 0.24 Urine Glucose Normal Normal mg/dL Urine Total Protein 10.9 1-14 mg/dL POC Glucose 92 70-106 mg/dl Giant Platelets Few Test 01/21/25 08:15 Range/Units Urine Mucus Few None Seen Urine Opiates Screen Neg NEGATIVE Urine Fentanyl Screen Neg NEGATIVE Urine Barbiturates Screen Neg NEGATIVE Urine Phencyclidine Screen Neg NEGATIVE Urine Amphetamines Screen Neg NEGATIVE Urine Benzodiazepines Screen Neg NEGATIVE Urine Cocaine Screen Neg NEGATIVE Urine Cannabinoids Screen Neg NEGATIVE Treponema pallidum Antibody Non-reactive Negative Hepatitis C Antibody Negative Negative Assessment Assessment 29yo IUP @ 38.3 wks Induction of Labor GDM, A2 and Gestational HTN Category I EFM Intact Membranes GBS negative Plan Plan BG checks Q4hrs, until active labor Q2hrs monitoring per order Pain mgmt, epidural in place Frequent position changes in bed encouraged Limit SVE unless necessary Intrauterine resuscitation PRN Anticipate CNM is co-managing care with Dr. [place]. Plan discussed with: Patient, Other (partner) Visit Coding OBGYN Date of Service: Jan 22, 2025 Billing Provider: DEANNA TAMEZ CNM METAL BENDING MACHINE OPERATOR Common Visit Codes: [id number] INP/OBS CARE(HIGH) SUBHASH KEY STUDENTMDW Jan 22, 2025 12:17
[2025-01-22] MEDS: CALCIUM CARB 500 MG CHEW TAB PO ONE (14:02)
--- NOTE | 2025-01-22 15:15 | DVH ---
BIOPHYSICAL PROFILE HISTORY: gdma2 Comparison Study: US BIOPHYSICAL PROFILE on DOS: 01/17/25, US BIOPHYSICAL PROFILE on DOS: 01/14/25, US B IOPHYSICAL PROFILE on DOS: 01/10/25, US BIOPHYSICAL PROFILE on DOS: 01/07/25, US BIOPHYSICAL PROFILE on D OS: 01/03/25 TECHNIQUE: Multiple real-time grayscale sonographic images through the gravid uterus of the fetus wi th duplex Doppler color flow and M-mode spectral analysis FINDINGS: BIOPHYSICAL PROFILE: breathing score: 2 movement score: 2 tone score: 2 Quantitative JORGE score: 2 (JORGE: 11.1 Cm.) Total score: 8 The cervix is not visualized Single live fetus in cephalic presentation. heart rate 127 beats per minute. Posterior placenta without previa or abruption IMPRESSION: Biophysical profile score: 8
[2025-01-22 15:19] LABS: Urine Bacteria None Seen /hpf (None Seen)
[2025-01-22 15:26] LABS: Basophils # (auto) 0.1 10 ^3/uL (0-0.2); Eosinophils # (auto) 0.1 10 ^3/uL (0-0.8); Hematocrit 31.5 % (36.0-46.0); Hemoglobin 9.6 g/dL (12.2-16.2); Mean Corpuscular Volume 66.2 fL (80.0-100.0); Monocytes # (auto) 0.7 10 ^3/uL (0-1.3); Neutrophils # (auto) 9.7 10 ^3/uL (1.6-8.6); Nucleated Red Blood Cells % 0.1 %; Red Blood Cells 4.76 10^6/uL (4.0-5.20)
[2025-01-22 15:28] LABS: Basophils % (auto) 0.5 % (0.0-2.0); Lymphocytes # (auto) 2.4 10 ^3/uL (0.4-5.4); Lymphocytes % (auto) 18.6 % (10.0-50.0); Mean Corpuscular Hemoglobin 20.2 pg (28.0-32.0); Mean Corpuscular Hgb Conc. 30.5 g/dL (32.0-36.0); Monocytes % (auto) 5.1 % (0.0-12.0); Neutrophils % (auto) 74.8 % (37.0-80.0); Platelet Count (auto) 263 10^3/uL (140-450)
[2025-01-22 15:29] LABS: Red Cell Distribution Width 21.4 % (11.8-14.3)
[2025-01-22 15:40] LABS: Protein, Urine 10.9 mg/dL (1-14)
[2025-01-22 15:42] LABS: Urine Amorphous Crystal FEW /hpf (None Seen); Urine Blood 2+ /uL (Negative); Urine Clarity Clear (Clear); Urine Color Light-Yellow (Yellow); Urine Protein, UAD Negative (Negative); Urine Specific Gravity 1.007 (1.001-1.035); Urine Squamous Epithelial Cell None Seen /hpf (<5); Urine Urobilinogen Normal (Negative); Urine WBC 2 /HPF (0-5); Urine pH 6.5 (5.0-9.0)
[2025-01-22 15:43] LABS: Creatinine, Urine 44.83 mg/dL (30.0-125.0); Urine Protein/Creatinine Ratio 0.24
[2025-01-22 15:45] LABS: Alanine Aminotransferase 10 U/L (7-40); Albumin 3.6 g/dL (3.2-4.8); Anion Gap 12 (5-15); Aspartate Aminotransferase 21 U/L (<34); BUN/Creatinine Ratio 10.8 (10.0-20.0); Bilirubin, Total 0.4 mg/dL (0.2-1.0); Potassium 3.7 mmol/L (3.5-5.1); Sodium 141 mmol/L (136-145); Total Protein 5.9 g/dL (5.7-8.2); Uric Acid 4.6 mg/dL (3.1-7.8)
[2025-01-22 15:46] LABS: Alkaline Phosphatase 225 U/L (46-116); Blood Urea Nitrogen 7 mg/dL (9-23); Calcium 8.6 mg/dL (8.7-10.4); Carbon Dioxide 20 mmol/L (20-31); Chloride 109 mmol/L (98-107); Glucose 106 mg/dL (74-106)
[2025-01-22 15:47] LABS: INR 0.92 (0.9-1.15); Partial Thromboplastin Time 23.1 SEC (24.5-34.5); Prothrombin Time 9.8 sec (9.3-11.8)
[2025-01-22 16:10] LABS: Anisocytosis Slight; Hypochromia Marked; Large Platelets FEW; Platelet Estimate Adequate
[2025-01-22] MEDS: LIDOCAINE HCL 2 %PF INJ 10ML AMP IJ ONE (18:07)
--- NOTE | 2025-01-22 18:15 | DVHPN2 ---
CNM Labor Progress Note Date and Time Seen Date Seen: Jan 22, 2025 Time Seen: 17:13 Subjective Subjective Comment Patient was offered to be discharged home by Dr Cleveland and come back for IOL on tuesday01/25/25 due to no cervical change, inability to AROM with -3 station, and increased risk of primary section. Discussed BPP and repeat labs with pt. Pt agrees with POC to go home at 1545. Pt then called CNM back to bedside and requesting to stay and continue IOL of labor at 1700. Discussed continuing IOL with nahed POTTS and restarting IV pitocin. Objective Vital Signs VSS, see chart BPP 03/15 Laboratory Tests Test 01/21/25 08:15 01/21/25 08:18 01/21/25 10:50 01/21/25 15:00 Range/Units Prothrombin Time 9.5 9.3-11.8 sec Prothrombin Time INR 0.89 L 0.9-1.15 Activated Partial Thromboplast Time 23.9 L 24.5-34.5 SEC Urine Color Light-yellow Yellow Urine Clarity Clear Clear Urine pH 6.5 5.0-9.0 Urine Specific [place] 1.013 1.001-1.035 Urine Protein Negative Negative Urine Ketones Negative Negative Urine Blood Negative Negative /uL Urine Nitrite Negative Negative Urine Bilirubin Negative Negative Urine Urobilinogen Normal Negative mg/dL Urine Leukocyte Esterase Negative Negative /uL Urine RBC 1 0 - 4 /hpf Urine Microscopic WBC 1 0-5 /HPF Urine Squamous Epithelial Cells Few <5 /hpf Urine Bacteria Few H None Seen /hpf Urine Mucus Few None Seen Urine Glucose Normal Normal mg/dL Sodium Level 140 136-145 mmol/L Potassium Level 3.9 3.5-5.1 mmol/L Chloride Level 108 H 98-107 mmol/L Carbon Dioxide Level 21 20-31 mmol/L Anion Gap 11 5-15 Blood Urea Nitrogen 7 L 9-23 mg/dL Creatinine 0.63 0.550-1.02 mg/dL Glomerular Filtration Rate Calc 125 >90 mL/min BUN/Creatinine Ratio 11.1 10.0-20.0 Serum Glucose 139 H 74-106 mg/dL Uric Acid 3.4 3.1-7.8 mg/dL Calcium Level 11.0 H 8.7-10.4 mg/dL Total Bilirubin 0.3 0.2-1.0 mg/dL Aspartate Amino Transferase (AST) 17 <34 U/L Alanine Aminotransferase (ALT) 13 7-40 U/L Alkaline Phosphatase 248 H 46-116 U/L Total Protein 6.9 5.7-8.2 g/dL Albumin 4.2 3.2-4.8 g/dL Urine Opiates Screen Neg NEGATIVE Urine Fentanyl Screen Neg NEGATIVE Urine Barbiturates Screen Neg NEGATIVE Urine Phencyclidine Screen Neg NEGATIVE Urine Amphetamines Screen Neg NEGATIVE Urine Benzodiazepines Screen Neg NEGATIVE Urine Cocaine Screen Neg NEGATIVE Urine Cannabinoids Screen Neg NEGATIVE Treponema pallidum Antibody Non-reactive Negative Hepatitis C Antibody Negative Negative White Blood Count 12.5 H 4.4-10.8 10^3/uL Red Blood Count 5.01 4.0-5.20 10^6/uL Hemoglobin 10.2 L 12.2-16.2 g/dL Hematocrit 33.1 #L 36.0-46.0 % Mean Corpuscular Volume 66.2 L 80.0-100.0 fL Mean Corpuscular Hemoglobin 20.5 L 28.0-32.0 pg Mean Corpuscular Hemoglobin Concent 30.9 L 32.0-36.0 g/dL Red Cell Distribution Width 22.0 H 11.8-14.3 % Platelet Count 387 140-450 10^3/uL Mean Platelet Volume 8.3 6.9-10.8 fL Neutrophils (%) (Auto) 64.1 37.0-80.0 % Lymphocytes (%) (Auto) 26.4 10.0-50.0 % Monocytes (%) (Auto) 7.2 0.0-12.0 % Eosinophils (%) (Auto) 2.0 0.0-7.0 % Basophils (%) (Auto) 0.3 0.0-2.0 % Neutrophils # (Auto) 8.0 1.6-8.6 10 ^3/uL Lymphocytes # (Auto) 3.3 0.4-5.4 10 ^3/uL Monocytes # (Auto) 0.9 0-1.3 10 ^3/uL Eosinophils # (Auto) 0.3 0-0.8 10 ^3/uL Basophils # (Auto) 0 0-0.2 10 ^3/uL Nucleated Red Blood Cells 0.7 % Platelet Estimate Adequate Large Platelets Few Giant Platelets Few Hypochromasia (manual) Marked Anisocytosis (manual) Slight Microcytosis Marked POC Glucose 112 H 70-106 mg/dl Urine Creatinine 70.12 30.0-125.0 mg/dL Urine Protein/Creatinine Ratio 0.17 Urine Total Protein 11.9 1-14 mg/dL Test 01/21/25 15:14 01/21/25 15:45 01/21/25 19:48 01/21/25 22:08 Range/Units POC Glucose 62 L 93 161 H 143 H 70-106 mg/dl Test 01/22/25 02:03 01/22/25 05:39 01/22/25 07:00 01/22/25 11:34 Range/Units POC Glucose 108 H 87 82 68 L 70-106 mg/dl Test 01/22/25 12:05 01/22/25 15:00 01/22/25 15:11 Range/Units POC Glucose 92 70-106 mg/dl Urine Color Light-yellow Yellow Urine Clarity Clear Clear Urine pH 6.5 5.0-9.0 Urine Specific [place] 1.007 1.001-1.035 Urine Protein Negative Negative Urine Ketones Negative Negative Urine Blood 2+ H Negative /uL Urine Nitrite Negative Negative Urine Bilirubin Negative Negative Urine Urobilinogen Normal Negative mg/dL Urine Leukocyte Esterase Negative Negative /uL Urine RBC 2 0 - 4 /hpf Urine Microscopic WBC 2 0-5 /HPF Urine Squamous Epithelial Cells None seen <5 /hpf Urine Amorphous Crystals Few None Seen /hpf Urine Bacteria None seen None Seen /hpf Urine Creatinine 44.83 30.0-125.0 mg/dL Urine Protein/Creatinine Ratio 0.24 Urine Glucose Normal Normal mg/dL Urine Total Protein 10.9 1-14 mg/dL White Blood Count 13.0 H 4.4-10.8 10^3/uL Red Blood Count 4.76 4.0-5.20 10^6/uL Hemoglobin 9.6 L 12.2-16.2 g/dL Hematocrit 31.5 L 36.0-46.0 % Mean Corpuscular Volume 66.2 L 80.0-100.0 fL Mean Corpuscular Hemoglobin 20.2 L 28.0-32.0 pg Mean Corpuscular Hemoglobin Concent 30.5 L 32.0-36.0 g/dL Red Cell Distribution Width 21.4 H 11.8-14.3 % Platelet Count 263 140-450 10^3/uL Mean Platelet Volume 8.7 6.9-10.8 fL Neutrophils (%) (Auto) 74.8 37.0-80.0 % Lymphocytes (%) (Auto) 18.6 10.0-50.0 % Monocytes (%) (Auto) 5.1 0.0-12.0 % Eosinophils (%) (Auto) 1.0 0.0-7.0 % Basophils (%) (Auto) 0.5 0.0-2.0 % Neutrophils # (Auto) 9.7 H 1.6-8.6 10 ^3/uL Lymphocytes # (Auto) 2.4 0.4-5.4 10 ^3/uL Monocytes # (Auto) 0.7 0-1.3 10 ^3/uL Eosinophils # (Auto) 0.1 0-0.8 10 ^3/uL Basophils # (Auto) 0.1 0-0.2 10 ^3/uL Nucleated Red Blood Cells 0.1 % Platelet Estimate Adequate Large Platelets Few Hypochromasia (manual) Marked Anisocytosis (manual) Slight Microcytosis Marked Prothrombin Time 9.8 9.3-11.8 sec Prothrombin Time INR 0.92 0.9-1.15 Activated Partial Thromboplast Time 23.1 L 24.5-34.5 SEC Sodium Level 141 136-145 mmol/L Potassium Level 3.7 3.5-5.1 mmol/L Chloride Level 109 H 98-107 mmol/L Carbon Dioxide Level 20 20-31 mmol/L Anion Gap 12 5-15 Blood Urea Nitrogen 7 L 9-23 mg/dL Creatinine 0.65 0.550-1.02 mg/dL Glomerular Filtration Rate Calc 124 >90 mL/min BUN/Creatinine Ratio 10.8 10.0-20.0 Serum Glucose 106 74-106 mg/dL Uric Acid 4.6 3.1-7.8 mg/dL Calcium Level 8.6 L 8.7-10.4 mg/dL Total Bilirubin 0.4 0.2-1.0 mg/dL Aspartate Amino Transferase (AST) 21 <34 U/L Alanine Aminotransferase (ALT) 10 7-40 U/L Alkaline Phosphatase 225 H 46-116 U/L Total Protein 5.9 5.7-8.2 g/dL Albumin 3.6 3.2-4.8 g/dL Monitoring Method Monitoring Method: External Heart Rate Heart Rate Baseline: 140 Heart Rate Variability: Moderate Presence of FHR Accelerations: Yes Presence of FHR Decelerations: No Are all 5 Components of the FH: Yes Contractions Contractions Frequency: Occasional Duration of Contraction: 80 Contractions Intensity: Mild Contractions Resting Tone: Relaxed Membranes Membranes: Intact Vaginal Exam Vag Exam Deferred: No (SVE: 3.5/60/-3, Cooks CRB placed with 80ml/80ml sterile fluid) Vaginal Exam Presentation: VTX Vaginal Exam Show: None Medications Medications - Pitocin: No (Pitocin break given) Medication - Epidural: Yes Medication - Other s/p Cytotec x 2 doses Lab Results Lab Results Current Medications Medications (Trade) Dose Ordered Sig/Oswaldo Start Time Stop Time Status Last Admin Dose Admin Lactated Ringer's 1,000 ml @ 125 mls/hr Q8H 01/21/25 08:15 01/22/25 15:35 125 MLS/HR Nalbuphine HCl (Nubain) 10 mg Q4HP PRN 01/21/25 08:15 Diagnostic Test (Pha) (Accu-Chek Comfort Curve T) 1 strip Q4HR 01/21/25 11:00 01/22/25 06:14 1 STRIP Witch Raquel (Tucks) 1 pad PRN PRN 01/21/25 08:15 01/21/25 19:09 1 PAD Sodium Lauryl Sulfate (Phisoderm) 240 ml PRN PRN 01/21/25 08:15 01/21/25 19:09 240 ML Benzocaine (Dermoplast) 1 applic PRN PRN 01/21/25 08:15 01/21/25 19:09 1 APPLIC Lidocaine HCl (Xylocaine) 20 ml ONCE PRN 01/21/25 08:15 Misoprostol (Cytotec) 50 mcg Q4HPRN PRN 01/21/25 10:15 01/21/25 22:15 50 MCG Ondansetron HCl (Zofran) 4 mg Q4HPRN PRN 01/21/25 11:30 01/22/25 04:34 4 MG Oxytocin 500 ml @ 999 mls/hr Q31M ONCE 01/21/25 11:30 01/21/25 12:00 DC Oxytocin 500 ml @ 125 mls/hr Q4H ONCE 01/21/25 12:00 01/21/25 15:59 DC Dextrose/Lactated Ringer's 1,000 ml @ 125 mls/hr Q8H 01/21/25 15:30 Metformin HCl (Glucophage) 500 mg BIDWM 01/22/25 08:00 Metformin HCl (Glucophage) 500 mg ONCE ONCE 01/21/25 20:45 01/21/25 20:46 DC 01/21/25 21:23 500 MG Naloxone HCl (Narcan) 0.2 mg PRN ONCE 01/22/25 02:45 01/22/25 02:46 DC Ephedrine Sulfate (ePHEDrine SULFATE) 10 mg PRN ONCE 01/22/25 02:45 01/22/25 02:46 DC Lactated Ringer's 500 ml @ 500 mls/hr Q1H ONCE 01/22/25 02:45 01/22/25 03:44 DC 01/22/25 02:45 500 MLS/HR Oxytocin 1,000 ml @ 6 ml/hr Q24H 01/22/25 04:00 01/22/25 05:31 6 ML/HR Terbutaline Sulfate (Brethine Inj) 0.25 mg ONCE PRN 01/22/25 04:00 Calcium Carbonate (Tums) 1,000 mg ONCE ONCE 01/22/25 14:00 01/22/25 14:01 DC 01/22/25 14:02 1,000 MG Laboratory Tests Test 01/22/25 15:11 01/22/25 15:00 01/22/25 12:05 01/21/25 08:18 Range/Units White Blood Count 13.0 H 4.4-10.8 10^3/uL Red Blood Count 4.76 4.0-5.20 10^6/uL Hemoglobin 9.6 L 12.2-16.2 g/dL Hematocrit 31.5 L 36.0-46.0 % Mean Corpuscular Volume 66.2 L 80.0-100.0 fL Mean Corpuscular Hemoglobin 20.2 L 28.0-32.0 pg Mean Corpuscular Hemoglobin Concent 30.5 L 32.0-36.0 g/dL Red Cell Distribution Width 21.4 H 11.8-14.3 % Platelet Count 263 140-450 10^3/uL Mean Platelet Volume 8.7 6.9-10.8 fL Neutrophils (%) (Auto) 74.8 37.0-80.0 % Lymphocytes (%) (Auto) 18.6 10.0-50.0 % Monocytes (%) (Auto) 5.1 0.0-12.0 % Eosinophils (%) (Auto) 1.0 0.0-7.0 % Basophils (%) (Auto) 0.5 0.0-2.0 % Neutrophils # (Auto) 9.7 H 1.6-8.6 10 ^3/uL Lymphocytes # (Auto) 2.4 0.4-5.4 10 ^3/uL Monocytes # (Auto) 0.7 0-1.3 10 ^3/uL Eosinophils # (Auto) 0.1 0-0.8 10 ^3/uL Basophils # (Auto) 0.1 0-0.2 10 ^3/uL Nucleated Red Blood Cells 0.1 % Platelet Estimate Adequate Large Platelets Few Hypochromasia (manual) Marked Anisocytosis (manual) Slight Microcytosis Marked Prothrombin Time 9.8 9.3-11.8 sec Prothrombin Time INR 0.92 0.9-1.15 Activated Partial Thromboplast Time 23.1 L 24.5-34.5 SEC Sodium Level 141 136-145 mmol/L Potassium Level 3.7 3.5-5.1 mmol/L Chloride Level 109 H 98-107 mmol/L Carbon Dioxide Level 20 20-31 mmol/L Anion Gap 12 5-15 Blood Urea Nitrogen 7 L 9-23 mg/dL Creatinine 0.65 0.550-1.02 mg/dL Glomerular Filtration Rate Calc 124 >90 mL/min BUN/Creatinine Ratio 10.8 10.0-20.0 Serum Glucose 106 74-106 mg/dL Uric Acid 4.6 3.1-7.8 mg/dL Calcium Level 8.6 L 8.7-10.4 mg/dL Total Bilirubin 0.4 0.2-1.0 mg/dL Aspartate Amino Transferase (AST) 21 <34 U/L Alanine Aminotransferase (ALT) 10 7-40 U/L Alkaline Phosphatase 225 H 46-116 U/L Total Protein 5.9 5.7-8.2 g/dL Albumin 3.6 3.2-4.8 g/dL Urine Color Light-yellow Yellow Urine Clarity Clear Clear Urine pH 6.5 5.0-9.0 Urine Specific [place] 1.007 1.001-1.035 Urine Protein Negative Negative Urine Ketones Negative Negative Urine Blood 2+ H Negative /uL Urine Nitrite Negative Negative Urine Bilirubin Negative Negative Urine Urobilinogen Normal Negative mg/dL Urine Leukocyte Esterase Negative Negative /uL Urine RBC 2 0 - 4 /hpf Urine Microscopic WBC 2 0-5 /HPF Urine Squamous Epithelial Cells None seen <5 /hpf Urine Amorphous Crystals Few None Seen /hpf Urine Bacteria None seen None Seen /hpf Urine Creatinine 44.83 30.0-125.0 mg/dL Urine Protein/Creatinine Ratio 0.24 Urine Glucose Normal Normal mg/dL Urine Total Protein 10.9 1-14 mg/dL POC Glucose 92 70-106 mg/dl Giant Platelets Few Test 01/21/25 08:15 Range/Units Urine Mucus Few None Seen Urine Opiates Screen Neg NEGATIVE Urine Fentanyl Screen Neg NEGATIVE Urine Barbiturates Screen Neg NEGATIVE Urine Phencyclidine Screen Neg NEGATIVE Urine Amphetamines Screen Neg NEGATIVE Urine Benzodiazepines Screen Neg NEGATIVE Urine Cocaine Screen Neg NEGATIVE Urine Cannabinoids Screen Neg NEGATIVE Treponema pallidum Antibody Non-reactive Negative Hepatitis C Antibody Negative Negative Assessment Assessment 29yo IUP @ 38.3 wks Induction of Labor GDM, A2 and Gestational HTN Category I EFM Intact Membranes GBS negative Plan Plan Start IV pitocin when Category I EFM for 30 minutes RN to apply gentle traction to Cooks CRB q1hr BG checks Q4, until active labor Q2 monitoring per order Pain mgmt, epidural in place Frequent position changes in bed encouraged Limit SVE unless necessary Intrauterine resuscitation PRN Anticipate CNM is co-managing care with Dr. Cleveland. Plan discussed with: Patient, Other (family) Visit Coding OBGYN Date of Service: Jan 22, 2025 Billing Provider: DEANNA TAMEZ CNM POULTRY [employer] ICER Common Visit Codes: [id number] INP/OBS CARE(HIGH) SUBHASH KEY STUDENTMDW Jan 22, 2025 18:15
[2025-01-22] MEDS ORDERED: D5W/LACTATED RINGERS 1,000 ML IV SCH (21:45)
[2025-01-23] VITALS (15 sets, daily range): BP systolic 118–140; BP diastolic 64–88; PULSE 68–96; RESP 16–21; TEMP 97.9–98.1; O2SAT 95–100
--- NOTE | 2025-01-23 02:44 | DVHPN2 ---
ELYM Labor Progress Note Date and Time Seen Date Seen: Jan 23, 2025 Time Seen: 02:40 Subjective Patient reports: No new complaints Objective Vital Signs VSS, see chart Monitoring Method Monitoring Method: External Heart Rate Heart Rate Baseline: 130 Heart Rate Variability: Moderate Presence of FHR Accelerations: Yes Presence of FHR Decelerations: No Are all 5 Components of the FH: Yes Contractions Contractions Frequency: Other (q2-5 min) Duration of Contraction: 80 Contractions Intensity: Moderate Contractions Resting Tone: Relaxed Membranes Membranes: Intact Vaginal Exam Vag Exam Deferred: No (4.5/65/-2 per RN after nahed POTTS fell out) Medications Medications - Pitocin: Yes (4mu) Medication - Epidural: Yes Medication - Other s/p 2 doses of cytotec Lab Results Lab Results Current Medications Medications (Trade) Dose Ordered Sig/Oswaldo Start Time Stop Time Status Last Admin Dose Admin Lactated Ringer's 1,000 ml @ 125 mls/hr Q8H 01/21/25 08:15 01/22/25 15:35 125 MLS/HR Nalbuphine HCl (Nubain) 10 mg Q4HP PRN 01/21/25 08:15 Diagnostic Test (Pha) (Accu-Chek Comfort Curve T) 1 strip Q4HR 01/21/25 11:00 01/22/25 06:14 1 STRIP Witch Raquel (Tucks) 1 pad PRN PRN 01/21/25 08:15 01/21/25 19:09 1 PAD Sodium Lauryl Sulfate (Phisoderm) 240 ml PRN PRN 01/21/25 08:15 01/21/25 19:09 240 ML Benzocaine (Dermoplast) 1 applic PRN PRN 01/21/25 08:15 01/21/25 19:09 1 APPLIC Lidocaine HCl (Xylocaine) 20 ml ONCE PRN 01/21/25 08:15 Misoprostol (Cytotec) 50 mcg Q4HPRN PRN 01/21/25 10:15 01/21/25 22:15 50 MCG Ondansetron HCl (Zofran) 4 mg Q4HPRN PRN 01/21/25 11:30 01/22/25 04:34 4 MG Oxytocin 500 ml @ 999 mls/hr Q31M ONCE 01/21/25 11:30 01/21/25 12:00 DC Oxytocin 500 ml @ 125 mls/hr Q4H ONCE 01/21/25 12:00 01/21/25 15:59 DC Dextrose/Lactated Ringer's 1,000 ml @ 125 mls/hr Q8H 01/21/25 15:30 Metformin HCl (Glucophage) 500 mg BIDWM 01/22/25 08:00 Metformin HCl (Glucophage) 500 mg ONCE ONCE 01/21/25 20:45 01/21/25 20:46 DC 01/21/25 21:23 500 MG Naloxone HCl (Narcan) 0.2 mg PRN ONCE 01/22/25 02:45 01/22/25 02:46 DC Ephedrine Sulfate (ePHEDrine SULFATE) 10 mg PRN ONCE 01/22/25 02:45 01/22/25 02:46 DC Lactated Ringer's 500 ml @ 500 mls/hr Q1H ONCE 01/22/25 02:45 01/22/25 03:44 DC 01/22/25 02:45 500 MLS/HR Oxytocin 1,000 ml @ 6 ml/hr Q24H 01/22/25 04:00 01/22/25 21:41 3 ML/HR Terbutaline Sulfate (Brethine Inj) 0.25 mg ONCE PRN 01/22/25 04:00 Calcium Carbonate (Tums) 1,000 mg ONCE ONCE 01/22/25 14:00 01/22/25 14:01 DC 01/22/25 14:02 1,000 MG Dextrose/Lactated Ringer's 1,000 ml @ 0 mls/hr Q0M 01/22/25 21:45 01/24/25 21:44 Laboratory Tests Test 01/23/25 01:39 01/22/25 15:11 01/22/25 15:00 01/21/25 08:18 Range/Units POC Glucose 92 70-106 mg/dl White Blood Count 13.0 H 4.4-10.8 10^3/uL Red Blood Count 4.76 4.0-5.20 10^6/uL Hemoglobin 9.6 L 12.2-16.2 g/dL Hematocrit 31.5 L 36.0-46.0 % Mean Corpuscular Volume 66.2 L 80.0-100.0 fL Mean Corpuscular Hemoglobin 20.2 L 28.0-32.0 pg Mean Corpuscular Hemoglobin Concent 30.5 L 32.0-36.0 g/dL Red Cell Distribution Width 21.4 H 11.8-14.3 % Platelet Count 263 140-450 10^3/uL Mean Platelet Volume 8.7 6.9-10.8 fL Neutrophils (%) (Auto) 74.8 37.0-80.0 % Lymphocytes (%) (Auto) 18.6 10.0-50.0 % Monocytes (%) (Auto) 5.1 0.0-12.0 % Eosinophils (%) (Auto) 1.0 0.0-7.0 % Basophils (%) (Auto) 0.5 0.0-2.0 % Neutrophils # (Auto) 9.7 H 1.6-8.6 10 ^3/uL Lymphocytes # (Auto) 2.4 0.4-5.4 10 ^3/uL Monocytes # (Auto) 0.7 0-1.3 10 ^3/uL Eosinophils # (Auto) 0.1 0-0.8 10 ^3/uL Basophils # (Auto) 0.1 0-0.2 10 ^3/uL Nucleated Red Blood Cells 0.1 % Platelet Estimate Adequate Large Platelets Few Hypochromasia (manual) Marked Anisocytosis (manual) Slight Microcytosis Marked Prothrombin Time 9.8 9.3-11.8 sec Prothrombin Time INR 0.92 0.9-1.15 Activated Partial Thromboplast Time 23.1 L 24.5-34.5 SEC Sodium Level 141 136-145 mmol/L Potassium Level 3.7 3.5-5.1 mmol/L Chloride Level 109 H 98-107 mmol/L Carbon Dioxide Level 20 20-31 mmol/L Anion Gap 12 5-15 Blood Urea Nitrogen 7 L 9-23 mg/dL Creatinine 0.65 0.550-1.02 mg/dL Glomerular Filtration Rate Calc 124 >90 mL/min BUN/Creatinine Ratio 10.8 10.0-20.0 Serum Glucose 106 74-106 mg/dL Uric Acid 4.6 3.1-7.8 mg/dL Calcium Level 8.6 L 8.7-10.4 mg/dL Total Bilirubin 0.4 0.2-1.0 mg/dL Aspartate Amino Transferase (AST) 21 <34 U/L Alanine Aminotransferase (ALT) 10 7-40 U/L Alkaline Phosphatase 225 H 46-116 U/L Total Protein 5.9 5.7-8.2 g/dL Albumin 3.6 3.2-4.8 g/dL Urine Color Light-yellow Yellow Urine Clarity Clear Clear Urine pH 6.5 5.0-9.0 Urine Specific [place] 1.007 1.001-1.035 Urine Protein Negative Negative Urine Ketones Negative Negative Urine Blood 2+ H Negative /uL Urine Nitrite Negative Negative Urine Bilirubin Negative Negative Urine Urobilinogen Normal Negative mg/dL Urine Leukocyte Esterase Negative Negative /uL Urine RBC 2 0 - 4 /hpf Urine Microscopic WBC 2 0-5 /HPF Urine Squamous Epithelial Cells None seen <5 /hpf Urine Amorphous Crystals Few None Seen /hpf Urine Bacteria None seen None Seen /hpf Urine Creatinine 44.83 30.0-125.0 mg/dL Urine Protein/Creatinine Ratio 0.24 Urine Glucose Normal Normal mg/dL Urine Total Protein 10.9 1-14 mg/dL Giant Platelets Few Test 01/21/25 08:15 Range/Units Urine Mucus Few None Seen Urine Opiates Screen Neg NEGATIVE Urine Fentanyl Screen Neg NEGATIVE Urine Barbiturates Screen Neg NEGATIVE Urine Phencyclidine Screen Neg NEGATIVE Urine Amphetamines Screen Neg NEGATIVE Urine Benzodiazepines Screen Neg NEGATIVE Urine Cocaine Screen Neg NEGATIVE Urine Cannabinoids Screen Neg NEGATIVE Treponema pallidum Antibody Non-reactive Negative Hepatitis C Antibody Negative Negative Assessment Assessment 29yo IUP @ 38.4 wks Induction of Labor GDM, A2 and Gestational HTN Category I EFM Intact Membranes GBS negative Plan Plan Continue with IV pitocin 2mu q30 min now until 20mu max BG checks Q4, until active labor Q2 monitoring per order Pain mgmt, epidural in place Frequent position changes in bed encouraged Limit SVE unless necessary Intrauterine resuscitation PRN Anticipate TIFFANIE is co-managing care with Dr. Cleveland. Plan discussed with: Patient Visit Coding OBGYN Date of Service: Jan 23, 2025 Billing Provider: DEANNA TAMEZ CNM COMMUNICATIONS BILLING ANALYST Common Visit Codes: [id number] INP/OBS CARE(HIGH) DEANNA TAMEZ CNM Jan 23, 2025 02:44
[2025-01-23] MEDS ORDERED: HYDR-4072 PO (08:17)
[2025-01-23] MEDS ORDERED: DOCU-94 PO (08:17)
[2025-01-23] MEDS ORDERED: IBUP-1456 PO (08:17)
[2025-01-23] MEDS: ceFAZolin 2 GM/D5W50ml 50 ML IV ONE (08:40)
--- NOTE | 2025-01-23 08:40 | DVHHP ---
ADMIT DATE: 01/23/2025 CHIEF COMPLAINT: Failed induction. HISTORY OF PRESENT ILLNESS: The patient is a 29-year-old 1, para 0 with EDC of 02/02/2025, estimated gestational age of 38-4/7 weeks. Admitted for induction of labor secondary to preeclampsia and GDMA2. The patient demonstrated a massive amount of swelling and was having headaches. The patient was admitted on 01/22/2025, got induced, received multiple Cytotec, Rossi balloon and Pitocin; however, did not progress past 4 cm, -3 station. The patient was given the option of going home and returning in a couple of days, but the patient requested having a primary . Baby appears to be asynclitic. She refused to go home and is requesting primary . PAST MEDICAL HISTORY: None. PAST SURGICAL HISTORY: None. SOCIAL HISTORY: None. FAMILY HISTORY: None. OBSTETRIC AND GYNECOLOGIC HISTORY: Primigravid. ALLERGIES: No known drug allergies. REVIEW OF SYSTEMS: Consistent with HPI. PHYSICAL EXAMINATION: VITAL SIGNS: Stable, afebrile. HEENT: Within normal limits. CARDIOVASCULAR: Regular rate and rhythm. LUNGS: Clear to auscultation. BREASTS: Symmetrical. No masses. ABDOMEN: Gravid. Positive heart tones. PELVIC: 3-4, 60%, -3 station. EXTREMITIES: No clubbing, cyanosis or edema. IMPRESSION: * Intrauterine at 38+ weeks with preeclampsia. * Gestational diabetes mellitus class A2. * Failed induction. PLAN: Primary low transverse section. Consent obtained. Risks and complications of surgery including infection, bleeding, hematoma formation, injury to bowel or bladder or surrounding organs, possibility of DVT, pulmonary embolism and risks of anesthesia were discussed with the patient. Options were reviewed. All questions answered. The patient fully understands. She wishes to proceed with planned procedure. DO ANTHONY Jennings TID: [id number] RECEIPT: [id number]
[2025-01-23] MEDS: SODIUM BICARB 8.4% 50Meq/50ml SYR Vial IV ONE (08:49)
[2025-01-23] MEDS: LIDOCAINE W/ EPINEPHRINE 2% INJ 20ML VIAL ONE (08:50)
[2025-01-23] MEDS: SUCCINYLCHOLINE CHLORIDE 20 MG/ML 10ML VIAL IV ONE (08:50)
[2025-01-23] MEDS ORDERED: oxyTOCIN 10 UNIT/ML 10ML VIAL ONE (09:00)
[2025-01-23] MEDS ORDERED: MIDAZOLAM HCL 2MG/2ML 2ml VIAL (1mg/ml) ONE (09:00)
[2025-01-23] MEDS ORDERED: MORPHINE SULF PF 5 MG/10 ML VIAL ONE (09:00)
[2025-01-23] MEDS ORDERED: ONDANSETRON HCL 4 MG/2 ML VIAL ONE (09:00)
[2025-01-23] MEDS ORDERED: KETAMINE 50mg/ML 1ml syringe ONE (09:00)
[2025-01-23] MEDS ORDERED: DexAMETHasone SOD PHOS 10MG/1ML VIAL INJ ONE (09:00)
[2025-01-23] MEDS ORDERED: fentaNYL CITRATE 100 MCG/2 ML VL ONE (09:00)
[2025-01-23] MEDS ORDERED: SODIUM CHLORIDE LOCK 10 ML ONE (09:18)
[2025-01-23] MEDS: miSOPROStol 100 mcg TAB ONE (09:30)
[2025-01-23] MEDS: DIPHENOXYLATE W/ATROPINE 2.5 MG TAB ONE (09:30)
[2025-01-23] MEDS: CARBOPROST TROMETHAMINE 250 MCG/1ML VIAL IM ONE ×3 (09:44→10:08)
[2025-01-23] MEDS ORDERED: NALOXONE HCL 0.4 MG/ML VIAL IV PRN (10:30)
[2025-01-23] MEDS ORDERED: diphenhdrAMINE HCL 50 MG/1 ML VL IV PRN (10:30)
[2025-01-23] MEDS ORDERED: MORPHINE SULFATE 4 MG/ML SYR/VIAL IV PRN (10:30)
[2025-01-23] MEDS: KETOROLAC TROMETH 30 MG/ML 1ML VIAL IV ONE (10:30)
[2025-01-23] MEDS ORDERED: HYDROmorphone HCL 2 MG/ML VL/or syr IV PRN ×2 (10:30)
[2025-01-23] MEDS ORDERED: MORPHINE SULFATE INJ 2 MG/ml SYRG IV PRN (10:30)
[2025-01-23] MEDS ORDERED: ACCU-CHEK COMFORT CURVE STRIP VI ONE (10:30)
[2025-01-23] MEDS: METOCLOPRAMIDE HCL 5MG/ml INJ 2ml VIAL IV ONE (10:30)
[2025-01-23] MEDS: ACETAMINOPHEN IV 1000 MG/100ML (10MG/ML) IV PRN (11:46)
--- NOTE | 2025-01-23 13:43 | DVHOP2 ---
Operative Report DATE OF OPERATION: 01/23/25 PREOPERATIVE DIAGNOSES: iup at 38+wks failed induction,desires pcs POSTOPERATIVE DIAGNOSES:same,nuchal cord SURGEON: Juanis Cleveland D.O./anne ANESTHESIOLOGIST: thomas TYPE OF ANESTHESIA : epidural CONSENT: The patient was informed of the risks and benefits of the procedure. The patient was informed of the risks and benefits of the procedure. These include but are not limited to , complications of anesthesia, postoperative infection, incomplete relief of symptoms, recurrence of symptoms, damage to blood vessels, nerves and tendons, deep venous thrombosis, pulmonary embolism and possible need for repeat surgery in the future. FINDINGS: Baby [b] with Apgars of [8] and [9]. Grossly normal appearing tubes and ovaries.nuchal cord,efw 8-3 PROCEDURES: Primary low transverse section. PROCEDURE IN DETAIL: The patient was taken to the operating room. She already had an epidural in place. She was then placed in supine position with a leftward tilt. A Pfannenstiel skin incision was made 2 cm above the symphysis pubis. This incision was carried to the underlying layer of fascia. The fascia was nicked in the midline. The incision was extended laterally. The superior aspect of the fascial incision was grasped and elevated. The same procedure was done to the inferior aspect of the fascial i ncision. The rectus muscles were then in the midline. Peritoneum was identified and entered. Peritoneal incision was extended superiorly and inferiorly with good visualization of the bladder. Bladder blade was inserted. Vesicouterine peritoneum was identified and entered. Lower uterine segment was incised in a transverse fashion. The was delivered from vertex presentation. Infant was baby [b] with Apgars [8] and [9]. Placenta was then removed manually. Uterus was exteriorized and cleared of all clots and debris. The incision was repaired using 0 Vicryl in a double-layered fashion. No bleeding was noted. Uterus was then returned to the abdomen. The gutters were cleared off all clots and debris. Peritoneum was closed using 0 Vicryl, fascia was closed using 0 Maxon, and skin was closed using marques. The patient tolerated the procedure well. She was taken to the recovery room in stable condition. ESTIMATED BLOOD LOSS: Estimated blood loss was noted to be 1000 mL. Visit Coding OBGYN Date of Service: Jan 23, 2025 Billing Provider: JUANIS CLEVELAND DO ASSISTANT STATISTICIAN Common Visit Codes: [id number] OBS CARE (HIGH) ASSISTANT STATISTICIAN Procedure Codes: [id number] DELIVERY ONLY JUANIS CLEVELAND DO Jan 23, 2025 13:43
--- NOTE | 2025-01-23 13:48 | POSTOP ---
Post-Operative Note Post-Operative Note Preop Diagnosis failed induction at 38wks,desires pcs Postop Diagnosis: same,uterine atony Operation performed same,nuchal cord Specimen baby boy,apgars 8-9.efw 8-3 Anesthesia: Regional Anesthesiologist: thomas Blood Loss(fluid mgmt) 1000ml Surgeon Juanis Cleveland Public Service Director anne Implant na Complications & Mgmt none Date 01/23/25 Time 13:45 Visit Coding OBGYN Date of Service: Jan 23, 2025 Billing Provider: JUANIS CLEVELAND DO CONDUCTOR FREIGHT Common Visit Codes: 75608-VTFLMUS OBS CARE (HIGH) CONDUCTOR FREIGHT Procedure Codes: 55671-F-XIQLOQL DELIVERY ONLY JUANIS CLEVELAND DO Jan 23, 2025 13:48
[2025-01-23] MEDS: ceFAZolin 1GM/50ML 50 ML IV SCH (17:31)
[2025-01-23] MEDS: KETOROLAC TROMETH 30 MG/ML 1ML VIAL IV PRN (18:46)
[2025-01-24] VITALS (16 sets, daily range): BP systolic 111–130; BP diastolic 58–85; PULSE 67–98; RESP 16–20; TEMP 97.5–98.1; O2SAT 95–100
--- NOTE | 2025-01-24 00:36 | DVHPN2 ---
Progress Note Date Seen: Jan 24, 2025 Subjective S: bleeding is less, eating food without issues, denies lightheaded/dizziness, pain well controlled with medications, due to void, no flatus/BM yet, ambulating, vital signs Vital Sign Date Time Temp Pulse Resp B/P (MAP) Pulse Ox O2 Delivery O2 Flow Rate FiO2 01/23/25 23:50 98.1 77 20 118/76 (90) 96 98.1 01/23/25 12:48 Room Air Total Intake and Output 01/23/25 01/23/25 01/24/25 15:00 23:00 07:00 Output Total 800 ml 1450 ml Balance -800 ml -1450 ml medications Current Medications Medications Dose Ordered Sig/Oswaldo Route Start Time Stop Time Status Last Admin Dose Admin Lactated Ringer's 1,000 ml @ 125 mls/hr Q8H IV 01/21/25 08:15 01/23/25 21:23 125 MLS/HR Nalbuphine HCl 10 mg Q4HP PRN IV 01/21/25 08:15 Cancel Witch Raquel 1 pad PRN PRN TOP 01/21/25 08:15 01/21/25 19:09 1 PAD Sodium Lauryl Sulfate 240 ml PRN PRN TOP 01/21/25 08:15 01/21/25 19:09 240 ML Benzocaine 1 applic PRN PRN TOP 01/21/25 08:15 01/21/25 19:09 1 APPLIC Lidocaine HCl 20 ml ONCE PRN IJ 01/21/25 08:15 Cancel Ondansetron HCl 4 mg Q4HPRN PRN IV 01/21/25 11:30 01/22/25 04:34 4 MG Metformin HCl 500 mg BIDWM PO 01/22/25 08:00 Cancel Terbutaline Sulfate 0.25 mg ONCE PRN SC 01/22/25 04:00 Cancel Dextrose/Lactated Ringer's 1,000 ml @ 0 mls/hr Q0M IV 01/22/25 21:45 01/24/25 21:44 Cancel Diphenhydramine HCl 25 mg Q4HP PRN IV 01/23/25 10:30 Cefazolin Sodium 50 ml @ 100 mls/hr Q8H IV 01/23/25 18:00 01/24/25 10:29 01/23/25 17:31 100 MLS/HR Acetaminophen 1,000 mg Q8HPRN PRN IV 01/23/25 11:15 01/24/25 06:01 01/23/25 21:22 1,000 MG Ketorolac Tromethamine 30 mg Q6HPRN PRN IV 01/23/25 15:30 01/28/25 15:29 01/23/25 18:46 30 MG laboratory and microbiology Laboratory Tests 01/22/25 15:11 Test 01/22/25 15:11 Range/Units Serum Glucose 106 74-106 mg/dL Objective O: VSS Chest: heart sounds normal and lung sounds clear bilaterally Abd: soft, non-tender, fundus at U/firm/midline, active bowel sounds, no rebound or guarding Incision: sylke dressing open to air, clean/dry/intact Ext: Non-tender, No edema, 2+ BLE DTRs Lochia: minimal See lab results Assessment/Plan A: 29yo now POD#1 s/p primary -Continue with post-op PP care Plan discussed with: Patient Visit Coding OBGYN Date of Service: Jan 24, 2025 Billing Provider: DEANNA TAMEZ CNM BROADCAST OPERATIONS MANAGER Common Visit Codes: [id number] INP/OBS CARE(HIGH) DEANNA TAMEZ CNM Jan 24, 2025 00:36
[2025-01-24 06:36] LABS: Basophils # (auto) 0 10 ^3/uL (0-0.2); Basophils % (auto) 0.2 % (0.0-2.0); Eosinophils # (auto) 0.1 10 ^3/uL (0-0.8); Eosinophils % (auto) 0.6 % (0.0-7.0); Hematocrit 24.9 % (36.0-46.0); Hemoglobin 7.6 g/dL (12.2-16.2); Lymphocytes # (auto) 3.8 10 ^3/uL (0.4-5.4); Lymphocytes % (auto) 22.4 % (10.0-50.0); Mean Corpuscular Hgb Conc. 30.5 g/dL (32.0-36.0); Mean Corpuscular Volume 65.6 fL (80.0-100.0); Monocytes # (auto) 1.3 10 ^3/uL (0-1.3); Monocytes % (auto) 7.8 % (0.0-12.0); Neutrophils # (auto) 11.6 10 ^3/uL (1.6-8.6); Nucleated Red Blood Cells % 0.1 %; Platelet Count (auto) 266 10^3/uL (140-450); Red Blood Cells 3.79 10^6/uL (4.0-5.20); Red Cell Distribution Width 21.3 % (11.8-14.3); White Blood Cell 16.8 10^3/uL (4.4-10.8)
[2025-01-24] MEDS ORDERED: FER325T PO (10:14)
[2025-01-24] MEDS ORDERED: HYDROcodone-ACET 5/325MG TAB PO PRN (10:45)
[2025-01-24] MEDS: SIMETHICONE 80 MG CHEWABLE TABLET PO SCH (11:59)
[2025-01-24] MEDS: FERROUS SULFATE 325mg EC TAB PO SCH (14:25)
[2025-01-24] MEDS: IBUPROFEN 800 MG TAB PO PRN (17:28)
[2025-01-24] MEDS: HYDROcodone-ACET 5/325MG TAB PO PRN (19:19)
[2025-01-24] MEDS: DOCUSATE SOD 100 MG CAP PO SCH (21:52)
[2025-01-25 03:00] VITALS: BP 136/81; PULSE 73; RESP 16; TEMP 98.5; O2SAT 99
--- NOTE | 2025-01-25 07:10 | DVHPN2 ---
Chief Complaints Patient reports: No new complaints Nursing reports: No new complaints, No abdominal pain, No chest pain, No dizziness, No cough Objective Vitals Vital Signs Date Time Temp Pulse Resp B/P (MAP) Pulse Ox O2 Delivery O2 Flow Rate FiO2 01/25/25 03:00 98.5 73 16 136/81 (99) 99 98.5 01/24/25 18:30 Room Air Medications Current Medications Medications (Trade) Dose Ordered Sig/Oswaldo Route PRN Reason Start Time Stop Time Status Last Admin Acetaminophen/ Hydrocodone Bitart ([place] 5/325MG Tab) 1 tab Q4HPRN PRN PO FOR PAIN 1-6 01/24/25 10:45 01/24/25 19:19 Acetaminophen/ Hydrocodone Bitart ([place] 5/325MG Tab) 2 tab Q4HPRN PRN PO FOR PAIN 7-10 01/24/25 10:45 Dimethicone (Mylicon Tab) 80 mg QID PO 01/24/25 12:00 01/25/25 05:35 Docusate Sodium (Colace Capsule) 100 mg Q12HR PO 01/24/25 22:00 01/24/25 21:52 Ferrous Sulfate 325 mg TID PO 01/24/25 14:00 01/25/25 05:35 Ibuprofen (Motrin Tablet) 800 mg Q8HP PRN PO BREAKTHROUGH PAIN 01/24/25 10:45 01/25/25 05:35 General: Normal Lungs: Normal Cardiovascular: Normal Abdominal: Normal, Soft Extremities: Normal Skin: Normal Neurological: Normal Studies Laboratory Tests 01/24/25 05:54 01/22/25 15:11 Test 01/22/25 15:11 Range/Units Serum Glucose 106 74-106 mg/dL Ass/Plan Assessment s/p pcs Plan supportive care Visit Coding OBGYN Date of Service: Jan 25, 2025 Billing Provider: FARHAT MALHOTRA DO COMMUNICATIONS BILLING ANALYST Common Visit Codes: [id number] INP/OBS CARE (HIGH) FARHAT MALHOTRA DO Jan 25, 2025 07:10
[2025-01-25 07:15] VITALS: BP 125/72; PULSE 63; RESP 17; TEMP 98.1; O2SAT 96
--- NOTE | 2025-01-25 07:56 | DVHDS2 ---
Obstetrics Discharge Summary Obstetrics Discharge Summary Date of Admission: Jan 21, 2025 Date of Discharge: Jan 25, 2025 Reason For Admission: Induction of Labor Procedures: NST Intrapartum Procedures: (Low Cervical Transverse) Procedures: None Discharge Diagnosis: Term -Delivered, Preeclampsia, Others (gdm) Discharge Information: Activity (Other), Diet (Routine), Medications (Name:), Instructions (Routine), Discharge to (Home), Discarge date (01-25) Visit Coding OBGYN Date of Service: Jan 25, 2025 Billing Provider: FARHAT MALHOTRA DO [employer] Common Visit Codes: 18538-CTH/OBS DISCH DAY >30MIN [employer] Procedure Codes: [id number] DELIVERY ONLY FARHAT MALHOTRA DO Jan 25, 2025 07:56
[2025-01-25 11:30] VITALS: BP 131/71; PULSE 71; RESP 17; TEMP 98; O2SAT 96
[2025-01-25 15:00] VITALS: BP 135/73; PULSE 86; RESP 16; TEMP 97.9; O2SAT 98
[2025-01-25 19:14] VITALS: BP 139/72; PULSE 84; RESP 16; TEMP 98.2; O2SAT 100
[2025-01-25 23:00] VITALS: BP 131/66; PULSE 79; RESP 16; TEMP 98.2; O2SAT 98
--- NOTE | 2025-01-26 00:56 | DVHPN2 ---
Progress Note Date Seen: Jan 26, 2025 Subjective S: Lochia minimal. Regular diet well tolerated. Ambulating and voiding well w/o feeling dizzy or lightheaded. Pain relieved with oral analgesics. Passing flatus but no BM yet. w/o problem Desires & Requests to be discharged today /tomorrow vital signs Vital Sign Date Time Temp Pulse Resp B/P (MAP) Pulse Ox O2 Delivery O2 Flow Rate FiO2 01/25/25 23:00 98.2 79 16 131/66 (87) 98 98.2 01/25/25 19:15 Room Air medications Current Medications Medications Dose Ordered Sig/Oswaldo Route Start Time Stop Time Status Last Admin Dose Admin Nalbuphine HCl 10 mg Q4HP PRN IV 01/21/25 08:15 Cancel Witch Raquel 1 pad PRN PRN TOP 01/21/25 08:15 01/21/25 19:09 1 PAD Sodium Lauryl Sulfate 240 ml PRN PRN TOP 01/21/25 08:15 01/21/25 19:09 240 ML Benzocaine 1 applic PRN PRN TOP 01/21/25 08:15 01/21/25 19:09 1 APPLIC Lidocaine HCl 20 ml ONCE PRN IJ 01/21/25 08:15 Cancel Ondansetron HCl 4 mg Q4HPRN PRN IV 01/21/25 11:30 01/22/25 04:34 4 MG Metformin HCl 500 mg BIDWM PO 01/22/25 08:00 Cancel Terbutaline Sulfate 0.25 mg ONCE PRN SC 01/22/25 04:00 Cancel Dextrose/Lactated Ringer's 1,000 ml @ 0 mls/hr Q0M IV 01/22/25 21:45 01/24/25 21:44 Cancel Diphenhydramine HCl 25 mg Q4HP PRN IV 01/23/25 10:30 Ferrous Sulfate 325 mg TID PO 01/24/25 14:00 01/25/25 21:46 325 MG Docusate Sodium 100 mg Q12HR PO 01/24/25 22:00 01/25/25 21:47 100 MG Dimethicone 80 mg QID PO 01/24/25 12:00 01/25/25 21:46 80 MG Ibuprofen 800 mg Q8HP PRN PO 01/24/25 10:45 01/25/25 21:46 800 MG Acetaminophen/ Hydrocodone Bitart 1 tab Q4HPRN PRN PO 01/24/25 10:45 01/25/25 15:55 1 TAB Acetaminophen/ Hydrocodone Bitart 2 tab Q4HPRN PRN PO 01/24/25 10:45 laboratory and microbiology Laboratory Tests 01/24/25 05:54 01/22/25 15:11 Test 01/22/25 15:11 Range/Units Serum Glucose 106 74-106 mg/dL Objective O: A&O x3 NAD. Afebrile, VSS Chest: heart and lung sounds normal. Breasts: Nipples intact w/o cracks or soreness Abdomen: normal BS, soft, non-tender, no rebound or guarding, fundus firm @ U- 1, Lower abdominal Incision site with Sylke on, same clean, dry and intact. No edema, erythema or induration Extremities: no edema or tenderness Lochia - minimal Assessment/Plan __A/P: 29yo now Post operative & ppd #3 s/p Primary Section doing well. Anemia Blood Type: O Rh: Positive e Breast feeding Rubella Immune Pain control with oral medications Bowel regimen: Increase fluid intake and fiber in diet, Laxative PRN PP BCM Plan: Male Condoms. Contemplating Patch after weaning Discharge plan: May discharge home later today if condition remains stable Plan discussed with: Patient, Spouse Visit Coding OBGYN Date of Service: Jan 26, 2025 Billing Provider: JOMAR CARMEN CNM UMBRELLA SUPERVISOR Common Visit Codes: [id number] INP/OBS CARE(HIGH) JOMAR CARMEN CNM Jan 26, 2025 00:56
[2025-01-26 03:00] VITALS: BP 124/78; PULSE 80; RESP 16; TEMP 97.6; O2SAT 98
[2025-01-26 07:00] VITALS: BP 128/75; PULSE 87; RESP 18; TEMP 98; O2SAT 98
--- NOTE | 2025-01-26 08:39 | DVHDS2 ---
Discharge Summary Date of Admission Jan 21, 2025 at 08:00 Date of Discharge: Jan 25, 2025 Admitting Diagnosis IUP at 38w 3d GDMA2, Pre Eclampsia IOL Labs/Diagnostic Data: Laboratory Results Test 01/24/25 05:54 01/23/25 05:46 01/22/25 15:11 01/22/25 15:00 White Blood Count 16.8 10^3/uL (4.4-10.8) Red Blood Count 3.79 10^6/uL (4.0-5.20) Hemoglobin 7.6 g/dL (12.2-16.2) Hematocrit 24.9 % (36.0-46.0) Mean Corpuscular Volume 65.6 fL (80.0-100.0) Mean Corpuscular Hemoglobin 20.0 pg (28.0-32.0) Mean Corpuscular Hemoglobin Concent 30.5 g/dL (32.0-36.0) Red Cell Distribution Width 21.3 % (11.8-14.3) Platelet Count 266 10^3/uL (140-450) Mean Platelet Volume 8.3 fL (6.9-10.8) Neutrophils (%) (Auto) 69.0 % (37.0-80.0) Lymphocytes (%) (Auto) 22.4 % (10.0-50.0) Monocytes (%) (Auto) 7.8 % (0.0-12.0) Eosinophils (%) (Auto) 0.6 % (0.0-7.0) Basophils (%) (Auto) 0.2 % (0.0-2.0) Neutrophils # (Auto) 11.6 10 ^3/uL (1.6-8.6) Lymphocytes # (Auto) 3.8 10 ^3/uL (0.4-5.4) Monocytes # (Auto) 1.3 10 ^3/uL (0-1.3) Eosinophils # (Auto) 0.1 10 ^3/uL (0-0.8) Basophils # (Auto) 0 10 ^3/uL (0-0.2) Nucleated Red Blood Cells 0.1 % POC Glucose 88 mg/dl (70-106) Platelet Estimate Adequate Large Platelets Few Hypochromasia (manual) Marked Anisocytosis (manual) Slight Microcytosis Marked Prothrombin Time 9.8 sec (9.3-11.8) Prothrombin Time INR 0.92 (0.9-1.15) Activated Partial Thromboplast Time 23.1 SEC (24.5-34.5) Sodium Level 141 mmol/L (136-145) Potassium Level 3.7 mmol/L (3.5-5.1) Chloride Level 109 mmol/L (98-107) Carbon Dioxide Level 20 mmol/L (20-31) Anion Gap 12 (5-15) Blood Urea Nitrogen 7 mg/dL (9-23) Creatinine 0.65 mg/dL (0.550-1.02) Glomerular Filtration Rate Calc 124 mL/min (>90) BUN/Creatinine Ratio 10.8 (10.0-20.0) Serum Glucose 106 mg/dL (74-106) Uric Acid 4.6 mg/dL (3.1-7.8) Calcium Level 8.6 mg/dL (8.7-10.4) Total Bilirubin 0.4 mg/dL (0.2-1.0) Aspartate Amino Transferase (AST) 21 U/L (<34) Alanine Aminotransferase (ALT) 10 U/L (7-40) Alkaline Phosphatase 225 U/L (46-116) Total Protein 5.9 g/dL (5.7-8.2) Albumin 3.6 g/dL (3.2-4.8) Urine Color Light-yellow (Yellow) Urine Clarity Clear (Clear) Urine pH 6.5 (5.0-9.0) Urine Specific [place] 1.007 (1.001-1.035) Urine Protein Negative (Negative) Urine Ketones Negative (Negative) Urine Blood 2+ /uL (Negative) Urine Nitrite Negative (Negative) Urine Bilirubin Negative (Negative) Urine Urobilinogen Normal mg/dL (Negative) Urine Leukocyte Esterase Negative /uL (Negative) Urine RBC 2 /hpf (0 - 4) Urine Microscopic WBC 2 /HPF (0-5) Urine Squamous Epithelial Cells None seen /hpf (<5) Urine Amorphous Crystals Few /hpf (None Seen) Urine Bacteria None seen /hpf (None Seen) Urine Creatinine 44.83 mg/dL (30.0-125.0) Urine Protein/Creatinine Ratio 0.24 Urine Glucose Normal mg/dL (Normal) Urine Total Protein 10.9 mg/dL (1-14) Test 01/21/25 08:18 01/21/25 08:15 Giant Platelets Few Urine Mucus Few (None Seen) Urine Opiates Screen Neg (NEGATIVE) Urine Fentanyl Screen Neg (NEGATIVE) Urine Barbiturates Screen Neg (NEGATIVE) Urine Phencyclidine Screen Neg (NEGATIVE) Urine Amphetamines Screen Neg (NEGATIVE) Urine Benzodiazepines Screen Neg (NEGATIVE) Urine Cocaine Screen Neg (NEGATIVE) Urine Cannabinoids Screen Neg (NEGATIVE) Treponema pallidum Antibody Non-reactive (Negative) Hepatitis C Antibody Negative (Negative) Other Laboratory Tests 01/24/25 05:54 01/22/25 15:11 Brief Hx & Hospital Course: Admitted on 01/21/25 at 38w 3d EGA for IOL d/t GDMA2 & Pre Eclampsia. Induction process started with cervical ripening medication,anad cervical ripening balloon followed by Oxytocin. However ther was arrest of dilation at 4cm. Delivery options discussed with patient and she consented for primary C- section. Same performed on 01/23/25. ( See Operative Note for details) Normal postoperative & course; afebrile, meeting milestones w/o any problem or complications. Operations or Procedures Induction of Labor Primary Section Condition at Discharge: Good Final Diagnosis/Problems List same,uterine atony Secondary Diagnosis: Anemia Discharge Disposition: Home Discharge Instruct/Medications Diet: Consistent carbohydrate Diet comment: Routine regular diet rich in fiber, protein, iron and vitamin C with adequate fluid intake. Activity: Light activity Activity comment: Unrestricted. Advance as tolerated. Balance activities with rest periods. No heavy lifting, pushing or straining. Pelvic rest x 6weeks Follow Up/Referral: Post operative and self care instructions given. self care instructions given. emergency signs and symptoms including but not limited to pre-eclampsia precautions and signs of infection, PPH & of PPD reviewed with patient. Follow up with OB Provider in 1 week Medications: Ibuprofen Ferrous Sulfate Docusate sodium Discharge Statement: Post operative and self care instructions given. self care instructions given. emergency signs and symptoms including but not limited to pre-eclampsia precautions and signs of infection, PPH & of PPD reviewed with patient. Follow up with OB Provider in 1 week "Patient was advised to return to the ER or call 911 if any headaches, dizziness, shortness of breath, chest pain, abdominal pain, bleeding, fevers, or worsening of medical condition. Patient was counseled about treatment plan, medications, possible side effects, patientverbalized understanding. All questions were answered to the best of my ability. This discharge took greater then 30 minutes in planning, reviewing documentation, counseling the patient, and discussing with other team members." ASSESSMENT ASSESSMENT Hospital Course Admitted on 01/21/25 at 38w 3d EGA for IOL d/t GDMA2 & Pre Eclampsia. Induction process started with cervical ripening medication,anad cervical ripening balloon followed by Oxytocin. However ther was arrest of dilation at 4cm. Delivery options discussed with patient and she consented for primary C- section. Same performed on 01/23/25. ( See Operative Note for details) Normal postoperative & course; afebrile, meeting milestones w/o any problem or complications. Assessment same,uterine atony Visit Coding OBGYN Date of Service: Jan 26, 2025 Billing Provider: JOMAR CARMEN CNM EARLY INTER[employer] SCHOOL PSYCHOLOGIST Common Visit Codes: 77914-ADH/OBS DISCH DAY <30MIN JOMAR CARMEN CNM Jan 26, 2025 08:39
[2025-01-26 10:18] VITALS: TEMP 36.7
== END 2025-01-26 12:03 | disposition home or self-care (01) | DRG 788 ==
LOC: LDRP 08:00
PROVIDERS: ADMIT Obstetrics & Gynecology; ATTEND Obstetrics & Gynecology
PROC: 10D00Z1 Extraction of Products of Conception, Low, Open Approach (ICD-10-PCS; principal; 2025-01-23 09:20)
DX: O61.9 Failed induction of labor, unspecified (principal); O14.94 Unspecified pre-eclampsia, complicating childbirth; O24.429 Gestational diabetes mellitus in childbirth, unspecified control; Z37.0 Single live birth; Z3A.38 38 weeks gestation of pregnancy; O69.81X0 Labor and delivery complicated by cord around neck, without compression, not applicable or unspecified; O62.0 Primary inadequate contractions; O90.81 Anemia of the puerperium
CPT/HCPCS: 36415; 59025; 62282; 76815; 76819; 80053; 80307; 81001; 81002; 82570; 82948; 82962; 84156; 84550; 85025; 85610; 85730; 86780; 86803; 86850; 86900; 86901; 94760; 94762; 96360; 96361; 96365; 96366; 96374; G0378; J0131; J0330; J1100; J1885; J2250; J2405; J2590

== ENCOUNTER 2025-02-04 09:28 | Emergency (ER) | payer BC ==
[~2025-02-04] VITALS: Ht 160 cm; Wt 87.7 kg
[~2025-02-04 09:28] MED LIST changes: +DOCU-94 PO; +FER325T PO; +HYDR-4072 PO; +IBUP-1456 PO
[2025-02-04 10:26] LABS: Urine Bacteria None Seen /hpf (None Seen)
[2025-02-04 10:30] VITALS: BP 133/78; PULSE 82; RESP 16; TEMP 98.2; O2SAT 97
[2025-02-04 10:35] LABS: Urine Blood 2+ /uL (Negative); Urine Clarity Clear (Clear); Urine Color Yellow (Yellow); Urine Mucus FEW (None Seen); Urine Protein, UAD Negative (Negative); Urine Specific Gravity 1.028 (1.001-1.035); Urine Squamous Epithelial Cell FEW /hpf (<5); Urine Urobilinogen Normal (Negative); Urine WBC 5 /HPF (0-5); Urine pH 5.5 (5.0-9.0)
--- NOTE | 2025-02-04 10:43 | ED.PDOC ---
History of Present Illness HPI Comments 29-year-old female presents to the ER with prior medical history of anemia; surgical history of , right breast tumor removal and the chief complaint of vaginal discharge. Pt reports on having the done by Dr. Mena on January 23 2025. Patient states on having a fever for two days with also having blood from the surgical area with a foul smell. Denies chills, N/V/D, SOB, CP. No other associated symptoms, modifiers, recent injuries or sick contacts present at this time. Chief Complaint: Vaginal Discharge Time Seen by MD: 10:05 Primary Care Provider: Megha Reviewed Notes: Nurses Notes, Medications, Allergies Allergies: Coded Allergies: No Known Drug Allergy (Verified Allergy, Unknown, 12/19/20) Home Meds Active Scripts Ferrous Sulfate (FERROUS SULFATE) 325 Mg Tb, 1 TAB PO DAILY, #30 TAB 3 Refills Prov:JUVENALFARHAT OG 01/24/25 Ibuprofen (Ibuprofen) 800 Mg Tab, 800 MG PO TID PRN for 4 Days, #12 TAB Prov:FARHAT MALHOTRA 01/23/25 Hydrocodone-Acetaminophen (Hydrocodone/Acetaminophen 10-325 mg) 1 Tab Tab, 1 TAB PO Q6HPRN PRN for 7 Days, #28 TAB Prov:FARHAT MALHOTRA 01/23/25 Docusate Sodium (Colace) 100 Mg Cap, 1 CAP PO BID, #60 CAP 2 Refills Prov:FARHAT MALHOTRA 01/23/25 Oseltamivir Phosphate (Tamiflu) 75 Mg Cap, 1 CAP PO BID for 5 Days, #10 CAP 0 Refills Prov:ELIUD SHOEMAKER 08/21/24 Acetaminophen (Acetaminophen) 500 Mg Tab, 500 MG PO Q4HPRN, #30 TAB 0 Refills Prov:ELIUD SHOEMAKER 08/21/24 Ondansetron HCl (Ondansetron) 4 Mg Tab, 4 MG PO TID for 4 Days, #12 TAB Prov:CHRISTIANO SANCHES RESIDENT 04/17/24 Ondansetron Odt 4MG Tab (ZOFRAN PO) 4 Mg Tb, 4 MG PO Q6HP PRN, #15 TAB ODT TAB-DISSOLVE IN MOUTH, THEN SWALLOW Prov:ARMEN NEVAREZ PAC 05/02/23 Meclizine HCl (Meclizine 25) 25 Mg Tab, 25 MG PO Q8HP PRN, #15 TAB Prov:ARMEN NEVAREZ PAC 05/02/23 Reported Medications Insulin Glargine-Yfgn (Insulin Glargine) 100 Unit/Ml Inj, 28 UNIT SC, INJ 01/03/25 Metformin Hydrochloride (Metformin Hcl) 500 Mg Tab, 1000 MG PO DAILY for 30 Days, MG 01/03/25 Insulin Glargine (Lantus) 100 Unit/Ml Inj, 22 UNIT SC, INJ 12/13/24 Metformin Hydrochloride (Metformin Hcl) 500 Mg Tab, 500 MG PO DAILY for 30 Days, MG 12/13/24 Vit W/ Ferrous Fumara ( One Daily) Daily Tab, 1 TAB PO DAILY, #90 TAB 3 Refills 11/30/24 Information Source: Patient Mode of Arrival: Ambulatory Severity: Moderate Timing: Days Duration: Since onset, Days Prehospital treatment: None Past Medical History PAST MEDICAL HISTORY: Anemia Surgical History: (Done on January 23) DIRECTOR FUNERAL History: No Pertinent DIRECTOR FUNERAL History Family History Family History: Reviewed,noncontributory to illness, Unknown Social History Smoker: Non-Smoker Alcohol: Denies ETOH Use Drugs: Denies Drug Use Lives In: Home Constitutional: reports: fever, others (Foul smell coming from surgical area); denies: chills, diaphoresis, fatigue, malaise, sweats, weakness EENTM: denies: blurred vision, double vision, ear bleeding, ear discharge, ear drainage, ear pain, ear ringing, eye pain, eye redness, hearing loss, mouth pain, mouth swelling, nasal discharge, nose bleeding, nose congestion, nose pain, photophobia, tearing, throat pain, throat swelling, voice changes, others Respiratory: denies: cough, hemoptysis, orthopnea, SOB at rest, shortness of breath, SOB with excertion, stridor, wheezing, others Cardiovascular: denies: chest pain, dizzy spells, diaphoresis, Dyspnea on exertion, edema, irregular heart beat, left arm pain, lightheadedness, palpitations, PND, syncope, others Gastrointestinal: denies: abdomen distended, abdominal pain, blood streaked bowels, constipated, diarrhea, dysphagia, difficulty swallowing, hematemesis, melena, nausea, poor appetite, poor fluid intake, rectal bleeding, rectal pain, vomiting, others Genitourinary: denies: abnormal vagina bleeding, burning, dyspareunia, dysuria, flank pain, frequency, hematuria, incontinence, pain, , vagina discharge, urgency, others Neurological: denies: dizziness, fainting, headache, left sided numbness, left sided weakness, numbness, paresthesia, pre-existing deficit, right sided numbness, right sided weakness, seizure, speech problems, tingling, tremors, weakness, others Musculoskeletal: denies: back pain, gout, joint pain, joint swelling, muscle pain, muscle stiffness, neck pain, others Integumetry: denies: bruises, change in color, change in hair/nails, dryness, laceration, lesions, lumps, rash, wounds, others Allergic/Immunocompromised: denies: Difficulty Healing, Frequent Infections, Hives, Itching, others Hematologic/Lymphatic: denies: anemia, blood clots, easy bleeding, easy bruising, swollen glands, others Endocrine: denies: excessive hunger, excessive sweating, excessive thirst, excessive urination, flushing, intolerance to cold, intolerance to heat, unexp lained weight gain, unexplained weight loss, others Psychiatric: denies: anxiety, bipolar disorder, depression, hopeless, panic disorder, schizophrenia, sleepless, suicidal, others All Other Systems: Reviewed and Negative Physical Exam General Appearance: Moderate Distress, Normal HEENT: Normal ENT Inspection, Pharynx Normal, TMs Normal Neck: Full Range of Motion, Non-Tender, Normal, Normal Inspection Respiratory: Chest Non-Tender, Lungs Clear, No Accessory Muscle Use, No Respiratory Distress, Normal Breath Sounds Cardiovascular: No Edema, No JVD, No Murmur, No Gallop, Normal Peripheral Pulses, Regular Rate/Rhythm Breast Exam: Deferred Gastrointestinal: No Organomegaly, Non Tender, No Pulsatile Mass, Normal Bowel Sounds, Soft Genitalia: Deferred Pelvic: Deferred Rectal: Deferred Extremities: No calf tenderness, Normal capillary refill, Normal inspection, Normal range of motion, Non-tender, No pedal edema Musculoskeletal : Apperance: Normal Neurologic: Alert, radiology aide II-XII nml as Tested, No Motor Deficits, Normal Affect, Normal Mood, No Sensory Deficits Cerebellar Function: Normal Reflexes: Normal Skin: Dry, Normal Color, Warm Peripheral Pulses: 3+ Radial (R), 3+ Radial (L) Lymphatic: No Adenopathy Was a procedure done? Was a procedure done?: No Differential Dx Considerations may include: Urinary tract infection X-Ray, Labs, Meds, VS Vital Signs Date Time Temp Pulse Resp B/P (MAP) Pulse Ox O2 Delivery O2 Flow Rate FiO2 02/04/25 10:30 98.2 82 16 133/78 (96) 97 98.2 02/04/25 10:30 82 16 97 Room Air 02/04/25 09:42 98.3 97 16 136/90 (105) 98 98.3 Lab Test 02/04/25 09:40 Range/Units Urine Color Yellow Yellow Urine Clarity Clear Clear Urine pH 5.5 5.0-9.0 Urine Specific [place] 1.028 1.001-1.035 Urine Protein Negative Negative Urine Ketones Negative Negative Urine Blood 2+ H Negative /uL Urine Nitrite Negative Negative Urine Bilirubin Negative Negative Urine Urobilinogen Normal Negative mg/dL Urine Leukocyte Esterase 1+ Negative /uL Urine RBC 6 0 - 4 /hpf Urine Microscopic WBC 5 0-5 /HPF Urine Squamous Epithelial Cells Few <5 /hpf Urine Bacteria None seen None Seen /hpf Urine Mucus Few None Seen Urine Glucose Normal Normal mg/dL Patient alert. Vitals stable. No sign of any distress. Answering questions. Ultrasound does not reveal any acute process old cystic lesion. Spoke with OBGYN. UA shows UTI. Was given prescription of Keflex antibiotic. Explained to the patient. Was told to follow up with her primary care physician. Was told to come back if there is any problem. Time of 1ST Reevaluation: 10:35 Reevaluation 1ST: Improved Patient Education/Counseling: Diagnosis, Treatment, Prognosis Family Education/Counseling: No Family Present SEPSIS Sepsis Screen Date sepsis recognized/suspect: Feb 04, 2025 Time Sepsis recognized/suspect: 934 Recent Procedure: No On Antibiotic Therapy: No Respiratory Rate >20: No Heart Rate >90: Yes Temp<36 C (96.8 F) or >38.3 C: No SBP <90 or MAP <65 mmHG: No New Acute Mental Status Change: No Is the patient on CPAP, BIPAP,: No Physician Orders Abdomen Limited (02/04/25 10:18) Vital Signs Date Time Temp Pulse Resp B/P (MAP) Pulse Ox O2 Delivery O2 Flow Rate FiO2 6/30/25 10:30 98.2 82 16 133/78 (96) 97 98.2 02/04/25 10:30 82 16 97 Room Air 02/04/25 09:42 98.3 97 16 136/90 (105) 98 98.3 Departure 1 Departure Time of Disposition: 12:34 Impression: Primary Impression: UTI (urinary tract infection) Qualified Codes: N30.00 - Acute cystitis without hematuria Disposition: 01 HOME / SELF CARE / HOMELESS Condition: Good e-Prescriptions Cephalexin (KEFLEX CAPSULE) 250 Mg Cp 250 MG PO QID for 5 Days, #20 BOTTLE Prov: MARZENA HANDLEY MD 02/04/25 Discharged With: Self Critical Care Note Critical Care Time?: No Stability Stability form required: No Heart Score Heart Score: Heart Score Response (Comments) Value History N/A 0 EKG N/A 0 Age N/A 0 Risk Factors N/A 0 Troponin N/A 0 Total 0 I personally scribed for MARZENA HANDLEY MD ([email or web address]) on 02/04/25 at 10:43. Electronically submitted by Blake Davidson ([email or web address]). MARZENA HANDLEY MD Feb 04, 2025 10:43
--- NOTE | 2025-02-04 11:51 | DVH ---
Exam: US ABDOMEN LIMITED Date: 02/04/2025 11:22 AM Clinical History: Ultrasound over the area looking for abscess Comparison: None Technique: Targeted sonographic evaluation of the soft tissues of the pelvis was obtained utilizing grayscale an d color Doppler imaging. Findings/Impression: There is a cystic structure in the soft tissues measuring 1.7 x 1.4 x 0.5 cm in region of s car. No organized fluid collection.
[2025-02-04] MEDS ORDERED: CEPH250C PO (12:34)
== END 2025-02-04 12:44 | disposition home or self-care (01) ==
LOC: EEVIPCON 09:28 → ER 09:28
DX: N39.0 Urinary tract infection, site not specified (principal)
CPT/HCPCS: 76705; 81001

== ENCOUNTER 2025-03-03 22:10 | Emergency (ER) | payer BC ==
[~2025-03-03] VITALS: Ht 160 cm; Wt 88.4 kg
[~2025-03-03 22:10] MED LIST changes: +CEPH250C PO
--- NOTE | 2025-03-03 22:36 | ED.PDOC ---
History of Present Illness HPI Comments 29 y/o F, with a history of anemia, UTI's, and , presents with c/c C- section incision wound discharge, with associated pain and odor. Patient reports onset of symptoms, yesterday, after having a , recently, for her first new born 5x weeks ago. Discharge is described to be oozing mucus with small tinge of blood mixed in. Pain is a 3/10 in severity. Patient also reports on having an intermittent fever for the past week. Patient has not contacted her SAMPLING EXPERT regarding symptoms, yet. Denies any recent trauma. Denies any nausea, vomiting, diarrhea, chills, lightheadedness, or further associated symptoms. Time Seen by MD: 22:20 Primary Care Provider: Megha Reviewed Notes: Nurses Notes, Medications, Allergies Allergies: Coded Allergies: No Known Drug Allergy (Verified Allergy, Unknown, 12/19/20) Home Meds Active Scripts Cephalexin (KEFLEX CAPSULE) 250 Mg Cp, 250 MG PO QID for 5 Days, #20 BOTTLE Prov:MARZENA HANDLEY MD 02/04/25 Ferrous Sulfate (FERROUS SULFATE) 325 Mg Tb, 1 TAB PO DAILY, #30 TAB 3 Refills Prov:FARHAT MALHOTRA DO 01/24/25 Ibuprofen (Ibuprofen) 800 Mg Tab, 800 MG PO TID PRN for 4 Days, #12 TAB Prov:FARHAT MALHOTRA DO 01/23/25 Hydrocodone-Acetaminophen (Hydrocodone/Acetaminophen 10-325 mg) 1 Tab Tab, 1 TAB PO Q6HPRN PRN for 7 Days, #28 TAB Prov:FARHAT MALHOTRA DO 01/23/25 Docusate Sodium (Colace) 100 Mg Cap, 1 CAP PO BID, #60 CAP 2 Refills Prov:FARHAT MALHOTRA DO 01/23/25 Oseltamivir Phosphate (Tamiflu) 75 Mg Cap, 1 CAP PO BID for 5 Days, #10 CAP 0 Refills Prov:ELIUD SHOEMAKER 08/21/24 Acetaminophen (Acetaminophen) 500 Mg Tab, 500 MG PO Q4HPRN, #30 TAB 0 Refills Prov:ELIUD SHOEMAKER 08/21/24 Ondansetron HCl (Ondansetron) 4 Mg Tab, 4 MG PO TID for 4 Days, #12 TAB Prov:CHRISTIANO SANCHES RESIDENT 04/17/24 Ondansetron Odt 4MG Tab (ZOFRAN PO) 4 Mg Tb, 4 MG PO Q6HP PRN, #15 TAB ODT TAB-DISSOLVE IN MOUTH, THEN SWALLOW Prov:GERIARMEN Kathe PAC 05/02/23 Meclizine HCl (Meclizine 25) 25 Mg Tab, 25 MG PO Q8HP PRN, #15 TAB Prov:ARMEN NEVAREZ PAC 05/02/23 Reported Medications Insulin Glargine-Yfgn (Insulin Glargine) 100 Unit/Ml Inj, 28 UNIT SC, INJ 01/03/25 Metformin Hydrochloride (Metformin Hcl) 500 Mg Tab, 1000 MG PO DAILY for 30 Days, MG 01/03/25 Insulin Glargine (Lantus) 100 Unit/Ml Inj, 22 UNIT SC, INJ 12/13/24 Metformin Hydrochloride (Metformin Hcl) 500 Mg Tab, 500 MG PO DAILY for 30 Days, MG 12/13/24 Vit W/ Ferrous Fumara ( One Daily) Daily Tab, 1 TAB PO DAILY, #90 TAB 3 Refills 11/30/24 Information Source: Patient Mode of Arrival: Ambulatory Severity: Moderate Timing: Days Duration: Since onset Prehospital treatment: None Past Medical History PAST MEDICAL HISTORY: Anemia, UTI'S Surgical History: Surgical History (Other): Recent C-sections ALGEBRA TUTOR History: No Pertinent ALGEBRA TUTOR History Family History Family History: Reviewed,noncontributory to illness, Unknown Social History Smoker: Non-Smoker Alcohol: Denies ETOH Use Drugs: Denies Drug Use Lives In: Home Constitutional: denies: chills, diaphoresis, fatigue, fever, malaise, sweats, weakness, others EENTM: denies: blurred vision, double vision, ear bleeding, ear discharge, ear drainage, ear pain, ear ringing, eye pain, eye redness, hearing loss, mouth pain, mouth swelling, nasal discharge, nose bleeding, nose congestion, nose pain, photophobia, tearing, throat pain, throat swelling, voice changes, others Respiratory: denies: cough, hemoptysis, orthopnea, SOB at rest, shortness of breath, SOB with excertion, stridor, wheezing, others Cardiovascular: denies: chest pain, dizzy spells, diaphoresis, Dyspnea on exertion, edema, irregular heart beat, left arm pain, lightheadedness, palpitations, PND, syncope, others Gastrointestinal: reports: abdominal pain; denies: abdomen distended, blood streaked bowels, constipated, diarrhea, dysphagia, difficulty swallowing, hematemesis, melena, nausea, poor appetite, poor fluid intake, rectal bleeding, rectal pain, vomiting, others Genitourinary: reports: dysuria; denies: abnormal vagina bleeding, burning, dyspareunia, flank pain, frequency, hematuria, incontinence, pain, , vagina discharge, urgency, others Neurological: denies: dizziness, fainting, headache, left sided numbness, left sided weakness, numbness, paresthesia, pre-existing deficit, right sided numbness, right sided weakness, seizure, speech problems, tingling, tremors, weakness, others Musculoskeletal: denies: back pain, gout, joint pain, joint swelling, muscle pain, muscle stiffness, neck pain, others Integumetry: denies: bruises, change in color, change in hair/nails, dryness, laceration, lesions, lumps, rash, wounds, others Allergic/Immunocompromised: denies: Difficulty Healing, Frequent Infections, Hives, Itching, others Hematologic/Lymphatic: denies: anemia, blood clots, easy bleeding, easy bruising, swollen glands, others Endocrine: denies: excessive hunger, excessive sweating, excessive thirst, excessive urination, flushing, intolerance to cold, intolerance to heat, unexplained weight gain, unexplained weight loss, others Psychiatric: denies: anxiety, bipolar disorder, depression, hopeless, panic disorder, schizophrenia, sleepless, suicidal, others All Other Systems: Reviewed and Negative (Comprehensive review of systems are negative unless otherwise stated in HPI) Physical Exam General Appearance: Moderate Distress (Irgu-il-xleoavzy distress due to some mild urinary discomfort as well as concerns about her site.), Normal HEENT: Normal ENT Inspection, Pharynx Normal, TMs Normal Neck: Full Range of Motion, Non-Tender, Normal, Normal Inspection Respiratory: Chest Non-Tender, Lungs Clear, No Accessory Muscle Use, No Respiratory Distress, Normal Breath Sounds Cardiovascular: No Edema, No JVD, No Murmur, No Gallop, Normal Peripheral Pulses, Regular Rate/Rhythm Breast Exam: Deferred Gastrointestinal: No Pulsatile Mass, Normal Bowel Sounds, Soft Genitalia: Deferred Pelvic: Deferred Rectal: Deferred Extremities: No calf tenderness, Normal capillary refill, Normal inspection, Normal range of motion, Non-tender, No pedal edema Neurologic: Alert, No Motor Deficits, Normal Affect, Normal Mood, No Sensory Deficits Cerebellar Function: Normal Reflexes: Normal Skin: Other (Patient displays a large wound with spotty areas of mild dehiscence. Slightly malodorous. Mild erythematous points along the incision.) Lymphatic: No Adenopathy Was a procedure done? Was a procedure done?: No Differential Dx Considerations may include: post-op complication, cellulitis, dermatitis, UTI, among others X-Ray, Labs, Meds, VS Vital Signs Date Time Temp Pulse Resp B/P (MAP) Pulse Ox O2 Delivery O2 Flow Rate FiO2 03/03/25 22:30 99.1 78 16 129/74 (92) 98 99.1 Lab Test 03/03/25 22:51 03/03/25 22:45 Range/Units White Blood Count 9.2 4.4-10.8 10^3/uL Red Blood Count 5.00 4.0-5.20 10^6/uL Hemoglobin 10.7 L 12.2-16.2 g/dL Hematocrit 34.1 L 36.0-46.0 % Mean Corpuscular Volume 68.1 L 80.0-100.0 fL Mean Corpuscular Hemoglobin 21.4 L 28.0-32.0 pg Mean Corpuscular Hemoglobin Concent 31.4 L 32.0-36.0 g/dL Red Cell Distribution Width 23.5 H 11.8-14.3 % Platelet Count 397 140-450 10^3/uL Mean Platelet Volume 7.9 6.9-10.8 fL Neutrophils (%) (Auto) 46.5 37.0-80.0 % Lymphocytes (%) (Auto) 41.4 10.0-50.0 % Monocytes (%) (Auto) 6.7 0.0-12.0 % Eosinophils (%) (Auto) 4.7 0.0-7.0 % Basophils (%) (Auto) 0.7 0.0-2.0 % Neutrophils # (Auto) 4.3 1.6-8.6 10 ^3/uL Lymphocytes # (Auto) 3.8 0.4-5.4 10 ^3/uL Monocytes # (Auto) 0.6 0-1.3 10 ^3/uL Eosinophils # (Auto) 0.4 0-0.8 10 ^3/uL Basophils # (Auto) 0.1 0-0.2 10 ^3/uL Nucleated Red Blood Cells 0.0 % Sodium Level 139 136-145 mmol/L Potassium Level 4.1 3.5-5.1 mmol/L Chloride Level 106 98-107 mmol/L Carbon Dioxide Level 22 20-31 mmol/L Anion Gap 11 5-15 Blood Urea Nitrogen 18 9-23 mg/dL Creatinine 0.83 0.550-1.02 mg/dL Glomerular Filtration Rate Calc 99 >90 mL/min BUN/Creatinine Ratio 21.7 H 10.0-20.0 Serum Glucose 81 74-106 mg/dL Calcium Level 10.0 8.7-10.4 mg/dL Urine Color Light-yellow Yellow Urine Clarity Clear Clear Urine pH 5.5 5.0-9.0 Urine Specific [place] 1.022 1.001-1.035 Urine Protein Negative Negative Urine Ketones Negative Negative Urine Blood Negative Negative /uL Urine Nitrite Negative Negative Urine Bilirubin Negative Negative Urine Urobilinogen Normal Negative mg/dL Urine Leukocyte Esterase 1+ Negative /uL Urine RBC 4 0 - 4 /hpf Urine Microscopic WBC 3 0-5 /HPF Urine Squamous Epithelial Cells Few <5 /hpf Urine Bacteria None seen None Seen /hpf Urine Glucose Normal Normal mg/dL X-Ray, Labs, Meds, VS Comment All studies performed the ED were evaluated by me personally. Serum studies were unremarkable for any bacteremia or systemic concerns. Urinalysis showed a mild remnant urinary tract infection. Patient will be given medication and antibiotics to address her C-sections dehiscence. Advised patient to return to her room cleaner for discussions related to her concerns. Time of 1ST Reevaluation: 23:42 Reevaluation 1ST: Improved Consultation: PCP, city editor Patient Education/Counseling: Diagnosis, Treatment, Need For Follow Up Family Education/Counseling: Diagnosis, Treatment, No Family Present SEPSIS Sepsis Screen Recent Procedure: No On Antibiotic Therapy: No Respiratory Rate >20: No Heart Rate >90: No Temp<36 C (96.8 F) or >38.3 C: No SBP <90 or MAP <65 mmHG: No New Acute Mental Status Change: No Is the patient on CPAP, BIPAP,: No Physician Orders Cephalexin Capsule (Keflex Capsule) (03/03/25 23:45) Vital Signs Date Time Temp Pulse Resp B/P (MAP) Pulse Ox O2 Delivery O2 Flow Rate FiO2 03/03/25 22:30 99.1 78 16 129/74 (92) 98 99.1 Laboratory Tests Test 03/03/25 22:51 White Blood Count 9.2 10^3/uL (4.4-10.8) Departure 1 Departure Time of Disposition: 23:42 Impression: Primary Impression: Encounter for evaluation of wound Additional Impressions: Skin infection Postoperative infection UTI (urinary tract infection) Wound dehiscence Disposition: HOME / SELF CARE / HOMELESS Condition: Stable Additional Instructions: Advised patient utilize antibiotics as directed as well as additional medication as needed. Patient should follow up with room cleaner for discussions related to concerns. e-Prescriptions Acetaminophen (Acetaminophen) 500 Mg Tab 500 MG PO Q4HP PRN, #30 TAB Prov: ARMEN NEVAREZ PAC 03/03/25 Ibuprofen Micronized (Ibuprofen) 800 Mg Tab 800 MG PO Q8HP PRN, #20 TAB Prov: ARMEN NEVAREZ PAC 03/03/25 Cephalexin (KEFLEX CAPSULE) 250 Mg Cp 1 CAP PO QID for 7 Days, #28 CAP Prov: ARMEN NEVAREZ PAC 03/03/25 Discharged With: Self, Friend Critical Care Note Critical Care Time?: No Stability Stability form required: No Heart Score Heart Score: Heart Score Response (Comments) Value History N/A 0 EKG N/A 0 Age N/A 0 Risk Factors N/A 0 Troponin N/A 0 Total 0 I personally scribed for ARMEN NEVAREZ PAC ([email or web address]) on 03/03/25 at 22:36. Electronically submitted by Jamir Sharp ([email or web address]). ARMEN NEVAREZ PAC Mar 03, 2025 22:36
[2025-03-03 23:14] LABS: Hematocrit 34.1 % (36.0-46.0); Hemoglobin 10.7 g/dL (12.2-16.2); Mean Corpuscular Hemoglobin 21.4 pg (28.0-32.0); Mean Corpuscular Volume 68.1 fL (80.0-100.0); Nucleated Red Blood Cells % 0.0 %
[2025-03-03 23:21] LABS: Urine Protein, UAD Negative (Negative)
[2025-03-03 23:25] LABS: Chloride 106 mmol/L (98-107); Potassium 4.1 mmol/L (3.5-5.1); Sodium 139 mmol/L (136-145)
[2025-03-03 23:26] LABS: Anion Gap 11 (5-15); Calcium 10.0 mg/dL (8.7-10.4); Carbon Dioxide 22 mmol/L (20-31)
[2025-03-03 23:31] LABS: BUN/Creatinine Ratio 21.7 (10.0-20.0); Blood Urea Nitrogen 18 mg/dL (9-23); Glucose 81 mg/dL (74-106)
[2025-03-03] MEDS ORDERED: CEPH250C PO (23:43)
[2025-03-03] MEDS ORDERED: IBUP-1455 PO (23:43)
[2025-03-03] MEDS ORDERED: ACET500T58 PO (23:44)
[2025-03-04] MEDS: CEPHALEXIN 250 MG CAP PO ONE (01:43)
[2025-03-04] MEDS: ACETAMINOPHEN 325 MG TAB PO ONE (01:44)
[2025-03-04 01:47] VITALS: BP 105/50; PULSE 68; RESP 16; TEMP 98.3; O2SAT 99
== END 2025-03-04 01:47 | disposition home or self-care (01) ==
LOC: ER 22:10
DX: T81.30XA Disruption of wound, unspecified, initial encounter (principal); T81.40XA Infection following a procedure, unspecified, initial encounter; L08.9 Local infection of the skin and subcutaneous tissue, unspecified; N39.0 Urinary tract infection, site not specified; X58.XXXA Exposure to other specified factors, initial encounter; Y93.89 Activity, other specified; Y92.89 Other specified places as the place of occurrence of the external cause; Y99.8 Other external cause status
CPT/HCPCS: 36415; 80048; 81001; 85025

== ENCOUNTER → 2025-03-07 | Outpatient (CLI) | payer BC ==
[~2025-03-07] MED LIST changes: +IBUP-1455 PO
== END | disposition home or self-care (01) ==
LOC: LAB 08:58
PROVIDERS: ATTEND Obstetrics & Gynecology
DX: O99.810 Abnormal glucose complicating pregnancy (principal); Z3A.49 Greater than 42 weeks gestation of pregnancy
CPT/HCPCS: 82951

== ENCOUNTER 2025-05-22 09:17 | Outpatient (CLI) | payer BC ==
[2025-05-22 09:49] LABS: Hematocrit 37.9 % (36.0-46.0); Hemoglobin 12.0 g/dL (12.2-16.2); Mean Corpuscular Hemoglobin 22.8 pg (28.0-32.0); Mean Corpuscular Volume 71.9 fL (80.0-100.0); Nucleated Red Blood Cells % 0.1 %
[2025-05-22 10:08] LABS: Alkaline Phosphatase 103 U/L (46-116); Anion Gap 10 (5-15); BUN/Creatinine Ratio 19.4 (10.0-20.0); Blood Urea Nitrogen 12 mg/dL (9-23); Calcium 9.0 mg/dL (8.7-10.4); Carbon Dioxide 22 mmol/L (20-31); Glucose 87 mg/dL (74-106); Potassium 4.1 mmol/L (3.5-5.1); Sodium 140 mmol/L (136-145); Total Protein 7.8 g/dL (5.7-8.2)
[2025-05-22 10:09] LABS: Albumin 4.7 g/dL (3.2-4.8)
[2025-05-22 10:10] LABS: Alanine Aminotransferase 44 U/L (7-40); Beta HCG, Quantitative 0.3 mIU/mL (1.5-4.2); Bilirubin, Total 0.2 mg/dL (0.2-1.0); Chloride 108 mmol/L (98-107); Thyroid Stimulating Hormone 1.84 uIU/mL (0.55-4.78)
[2025-05-22 10:34] LABS: Free T4 (Free Thyroxine) 1.12 ng/dL (0.89-1.76)
[2025-05-22 10:35] LABS: Follicle Stimulating Hormone 9.05 IU/L (SEE BELOW)
== END 2025-05-22 17:00 | disposition home or self-care (01) ==
LOC: LAB 09:17
PROVIDERS: ATTEND Obstetrics & Gynecology
DX: N93.9 Abnormal uterine and vaginal bleeding, unspecified (principal); R10.9 Unspecified abdominal pain
CPT/HCPCS: 36415; 80053; 82626; 82670; 83001; 83002; 83036; 84146; 84270; 84402; 84403; 84439; 84443; 84702; 85025